=== PATIENT | female | born 1965 | race Caucasian/White ===

== ENCOUNTER 2024-04-16 10:59 | Outpatient (AMB) | payer OTHER, SELFPAY ==
--- NOTE | 2024-04-16 11:10 | A.OFFPC_ITS ---
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 Intake Note: New patient visit Allergies No Known Allergies Allergy (Verified 04/16/24 11:10) Medication List - Last Reconciled 04/16/24 by Alecia Christiansen PA-C apixaban (Eliquis) 5 mg PO BID aspirin 81 mg PO DAILY hydrochlorothiazide 25 mg PO DAILY methimazole mg PO metoprolol tartrate 50 mg PO BID rosuvastatin 5 mg PO DAILY Tobacco use date assessed: 04/16/24 Dental Screening Dental Screen Date: 04/16/24 Did you have a dental visit in the last 12 months?: Yes Did you have a dental problem in the last 6 months where you did not have access to dental care?: No Was dental information given to patient?: Patient has dentist 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 States that she has not seen a PCP in quite some time ever . She states that the only significant past medical history she can recall being diagnosed with was basal cell carcinoma. 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 She does not recall who she used to follow with. She states she was visiting family in [place] and states that she was not feeling well and went to the ED February 09 and dx with afib, htn, dyslipidemia and hyperthyroidism. She states that she went to the ER because she was just feeling tired, winded, sweaty and just unwell. She states that she canceled dinner plans when she arrived in [place] and her friend encouraged her to go to the hospital because that was just not like her. She states that while she was in the hospital they did do a lot of testing including imaging of the chest, an echo, EKG, labs. She states that she did not bring anything with her because her hospital records were about 360 pages. She can not tell me the name of the hospital but states that she has it listed at home. She obviously ran out of medication from January 18 now and states that the physician in [place] refilled it for her. -she states that while she was admitted they tried a cardioversion on her but she went back into AFib that same morning. She states that she can feel her heart switch in and out of AFib. It seems like it goes into AFib at night. She states that she is generally able to sleep through the night but does have a hard time sometimes she will snores so loudly that are all wake her up from sleeping. She does not think she has had any witnessed apneic events but also states sometimes she wakes up and feels like her mouth is very dry. -she states that prior to [place] she has been feeling weird for quite some time. She could not tell me how long but she thought that she maybe had a learning disability and states that she was having difficulty concentrating and feeling sweaty all of the time. She would intermittently get palpitations but did not think much about this. -she did not seek care because she did n ot want to feel like she was overreacting. -She has not had labs checked since the hospital. She states she had an ultrasound of her thyroid but cannot recall what they found and then part way through thought maybe it was just the ultrasound of the heart. CV: Blood pressure today in the office is 130/72. She is on metoprolol 50 mg b.i.d., hydrochlorothiazide 25 mg. States that her cholesterol is managed with Crestor 5 mg. She is on Eliquis. She was supposed to be on aspirin but is unable to tolerate this. States that it causes GI upset. She denies any current chest pain. She does feel at times the palpitations. No shortness a breath or leg swelling. No dizziness. Endo: She is on methimazole 5 mg and tries to take this everyday at the same time of day. 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 Postmenopausal. Mammo: Never had Colonoscopy: Never had Bone density: Never had Fam hx: Mother had breast ca at age 57. Maternal aunt had pancreatic ca. Patient is currently retired. [facility] Medical History (Updated 04/16/24 @ 11:48 by Alecia Christiansen PA-C) Hyperthyroidism A-fib Hx of skin cancer, basal cell Dyslipidemia HTN (hypertension), benign Social History (Updated 04/16/24 @ 11:12 by Francy Martinez CMA) Housing: House Patient Tobacco Use Status: Never used Tobacco e-Cigarette/Vaping Use: Never Used Second Hand Smoke Exposure: Yes Substance Use Type: Marijuana service: No Current occupational status: unemployed Cognitive needs: No Hearing needs: No Vision needs: Yes Questionnaire PHQ-9 Over the last 2 weeks, how often have you been bothered by any of the following problems? 1. Little interest or pleasure in doing things: not at all 2. Feeling down, depressed, or hopeless: not at all 3. Trouble falling or staying asleep, or sleeping too much: not at all 4. Feeling tired or having little energy: several days 5. Poor appetite or overeating: not at all 6. Feeling bad about yourself - or that you are a failure or have let yourself or your family down: not at all 7. Trouble concentrating on things, such as reading the newspaper or watching television: not at all 8. Moving or speaking so slowly that other people could have noticed. Or the opposite - being so fidgety or restless that you have been moving around a lot more than usual: not at all 9. Thoughts that you would be better off or of hurting yourself in some way: not at all Total score: 1 Depression Screening Interpretation: Negative Depression Screening Done: Yes 84910 - PHQ-9 Billing: Yes Source: Developed by Drs. Cosme Cullen, Josefa Verde, Ronnell Alaniz and colleagues, with an educational kian from [employer]. Thrive Questionnaire I am a: Patient What is your living situation today?: I have a steady place to live Within the past 12 months, did the food you bought not last and you didn't have the money to get more?: Never true Within the past 12 months, did you worry whether your food would run out before you got money to buy more?: Never true Do you have trouble paying for medicines?: No Do you have trouble getting transportation to medical appointments?: No Do you have trouble paying your heating and electricity bill?: No Do you have trouble taking care of your child, family member or friend?: No Do you have trouble with day-to-day activities such as bathing, preparing meals, shopping, managing finances, etc.?: No Are you currently unemployed and looking for a job?: No Are you interested in more education?: No Please select the resources that you would like help with: None Currently or been in a relationship where the following occur: no concerns reported THRIVE Score: 0 AUDIT C Alcohol Use Questionnaire (AUDIT-C) 1. How often do you have a drink containing alcohol?: Monthly or less 2. How many drinks containing alcohol do you have on a typical day when you are drinking?: 1 or 2 3. How often do you have six or more drinks on one occasion?: Never Total Score: 1 Score Reviewed/Action Taken: Yes BECKY-7 AMB Questionnaire BECKY-7 Feeling nervous, anxious, or on edge: 0 = Not at all Not being able to stop or control worryin = Not at all Worrying too much about different things: 0 = Not at all Trouble relaxin = Not at all Being so restless that it is hard to sit still: 0 = Not at all Becoming easily annoyed or irritable: 0 = Not at all Feeling afraid as if something awful might happen: 0 = Not at all Total BECKY-7 score (0-4 normal; 5-9 mild; 10-14 moderate; 15-21 severe): 0 Source: Developed by Drs. Cosme Cullen, Josefa Verde, Ronnell Alaniz and colleagues, with an educational kian from [employer]. BECKY-7 Assessment Billing BECKY-7 Assessment Tool: BECKY-7 Assessment 58771 Physical exam (Primary Care) Vital Signs: Last Vital Signs Temp 98.6 F 04/16/24 11:14 Pulse 57 04/16/24 11:14 Resp 14 04/16/24 11:14 BP 130/72 04/16/24 11:14 Pulse Ox 96 04/16/24 11:14 Oxygen Delivery Method Room Air 04/16/24 11:14 BMI result Body Mass Index 28.4 Tobacco/Smoking Status: Tobacco use Status Tobacco use date assessed 04/16/24 04/16/24 11:18 Patient Tobacco Use Status Never used Tobacco 04/16/24 11:18 e-Cigarette/Vaping Use Never Used 04/16/24 11:18 Depression Screening Interpretation: Negative Currently or been in a relationship where the following occur: no concerns reported Const Orientation/consciousness: patient oriented x3 HENMT Ears: hearing grossly normal bilaterally and TM's normal bilaterally Mouth: Normal oral and palatal mucosa present Throat: Yes posterior oropharynx normal and Yes uvula midline Eyes Other: Exophthalmos noted Pupils: Equal, round and reactive pupils present EOM: EOMs intact bilaterally Neck Thyroid: Thyroid normal Lymphatic: no lymphadenopathy noted Resp Auscultation: clear to auscultation bilaterally Cardio Rate: regular rate Rhythm: regular rhythm Heart sounds: S1 normal heart sound present and S2 normal heart sound present GI Inspection: Yes normal to inspection Palpation (GI): Soft to palpation and Other GI palpation findings present (nontender, no cva tenderness) Auscultation: normoactive bowel sounds Skin General skin exam: no rashes or lesions noted Neuro General: patient oriented x3, gait normal, no focal motor deficits and CN's II- XI intact bilaterally Cranial nerves: Yes Equal, round and reactive pupils present Psych Appearance: well kempt Speech and movement: Normal speech and movement present Affect: normal affect Attitude: cooperative Thought process: Normal thought process present Thought content: Normal thought content present Insight: Good insight present (Psych) Judgement: Good judgement present (Psych) Assessment and Plan Assessment & Plan (1) HTN (hypertension), benign: Code(s): I10 - Essential (primary) hypertension Plan: continue current plan bp wnl labs and referred to cards (2) Dyslipidemia: Code(s): E78.5 - Hyperlipidemia, unspecified Plan: continue crestor, lfts and lipids ordered (3) A-fib: Code(s): I48.91 - Unspecified atrial fibrillation Qualifiers: Atrial fibrillation type: paroxysmal Qualified Code(s): I48.0 - Paroxysmal atrial fibrillation Plan: continue eliquis and metoprolol. currently RRR labs ordered today referral to cardiology placed will get hospital records to review (4) Snoring: Code(s): R06.83 - Snoring Plan: sleep study ordered. 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 Orders: Orders Complete Blood Count Auto Diff Today E05.90 - Thyrotoxicosis, unspecified without thyrotoxic crisis or storm, E78.5 - Hyperlipidemia, unspecified, I10 - Essential (primary) hypertension, I48.91 - Unspecified atrial fibrillation Lipid Panel Today E05.90 - Thyrotoxicosis, unspecified without thyrotoxic crisis or storm, E78.5 - Hyperlipidemia, unspecified, I10 - Essential (primary) hypertension, I48.91 - Unspecified atrial fibrillation US thyroid Today E05.90 - Thyrotoxicosis, unspecified without thyrotoxic crisis or storm, E78.5 - Hyperlipidemia, unspecified, I10 - Essential (primary) hypertension, I48.91 - Unspecified atrial fibrillation MM screening mammo BI Today Z12.31 - Encounter for screening mammogram for malignant neoplasm of breast Comprehensive Met. Panel Today E05.90 - Thyrotoxicosis, unspecified without thyrotoxic crisis or storm, E78.5 - Hyperlipidemia, unspecified, I10 - Essential (primary) hypertension, I48.91 - Unspecified atrial fibrillation TSH reflex Free T4 Today E05.90 - Thyrotoxicosis, unspecified without thyrotoxic crisis or storm, E78.5 - Hyperlipidemia, unspecified, I10 - Essential (primary) hypertension, I48.91 - Unspecified atrial fibrillation XR DEXA axial skeleton Today Z78.0 - Asymptomatic menopausal state RT home sleep study Today I10 - Essential (primary) hypertension, I48.91 - Unspecified atrial fibrillation, R06.83 - Snoring Referrals Gastroenterology Referral Z12.11 - Encounter for screening for malignant neoplasm of colon Dermatology Referral Z85.828 - Personal history of other malignant neoplasm of skin Endocrinology Referral E05.90 - Thyrotoxicosis, unspecified without thyrotoxic crisis or storm Cardiology Referral I10 - Essential (primary) hypertension, I48.91 - Unspecified atrial fibrillation 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
[2024-04-16 11:14] VITALS: BP 130/72; PULSE 57; RESP 14; TEMP 37; O2SAT 96; BMI 28.4
== END 2024-04-16 12:04 | disposition home or self-care (01) ==
PROVIDERS: PCP Physician Assistant; Visit Provider Physician Assistant
DX: I10 Essential (primary) hypertension (principal); E78.5 Hyperlipidemia, unspecified; I48.0 Paroxysmal atrial fibrillation; R06.83 Snoring; E05.90 Thyrotoxicosis, unspecified without thyrotoxic crisis or storm; Z76.89 Persons encountering health services in other specified circumstances
CPT/HCPCS: 99204; G2211

== ENCOUNTER 2024-04-21 09:45 | Outpatient (REF) | payer OTHER, SELFPAY ==
[2024-04-21 11:13] LABS: MANUAL DIFF FLAG NO
[2024-04-21 11:45] LABS: Basophils Absolute Auto 0.1 X10*3/uL (0.0-0.2); Basophils Percent Auto 0.9 % (0-2); Eosinophils Absolute Auto 0.1 X10*3/uL (0.0-0.4); Eosinophils Percent Auto 2.1 % (0-4); Hematocrit 44.5 % (37.0-47.0); Hemoglobin 14.6 g/dl (12.0-16.0); Imm Gran Abs Auto 0.03 X10*3/uL (0.00-0.03); Imm Gran Pct Auto 0.5 % (0.0-0.4); Lymphocytes Percent Auto 35.7 % (20-40); Mean Corpuscular HGB Conc 32.8 g/dl (31.0-35.0); Mean Corpuscular Hemoglobin 29.4 pg (27.0-33.0); Mean Corpuscular Volume 89.5 fL (80.0-98.0); Monocytes Absolute Auto 0.4 X10*3/uL (0.1-1.2); Monocytes Percent Auto 6.2 % (2-11); Neutrophils Absolute Auto 3.1 x10*3/uL (2.0-8.3); Neutrophils Percent Auto 54.6 % (45-73); Platelet Count 238 X10*3/uL (160-400); Red Blood Count 4.97 X10*6/uL (4.20-5.50); Red Cell Distribution Width 15.5 % (11.0-16.0); White Blood Count 5.7 X10*3/uL (4.8-10.8)
[2024-04-21 12:12] LABS: Alanine Aminotransferase 208 U/L (0-31); Albumin Level 4.2 g/dL (3.5-5.0); Alkaline Phosphatase 147 U/L (39-117); Anion Gap 13 (12-20); Aspartate Amino Transferase 119 U/L (5-31); Bilirubin Total 1.1 mg/dL (0.0-1.0); Blood Urea Nitrogen 36 mg/dL (9-16); Calcium 9.2 mg/dL (8.4-10.2); Carbon Dioxide 28 mmol/L (22-29); Chloride 103 mmol/L (96-108); Cholesterol 216 mg/dL (<200); Estimated Glomerular Filt Rate 43; Glucose Random 94 mg/dL (60-115); HDL Cholesterol 70 mg/dL (>40); LDL Cholesterol Calculated 123 mg/dL (<100); Potassium 4.5 mmol/L (3.3-5.1); Sodium 139 mmol/L (135-145); Total Protein 6.9 g/dL (6.5-8.0); Triglycerides 117 mg/dL (<150)
[2024-04-21 12:32] LABS: TSH reflex Free T4 74.46 uIU/mL (0.32-4.0)
[2024-04-21 13:06] LABS: Free T4 (Free Thyroxine) < 0.42 ng/dL (0.71-1.85)
== END 2024-04-21 09:46 | disposition home or self-care (01) ==
LOC: HO.WFDLDS 09:45
PROVIDERS: Visit Provider Physician Assistant
DX: E05.90 Thyrotoxicosis, unspecified without thyrotoxic crisis or storm (principal); I48.91 Unspecified atrial fibrillation; E78.5 Hyperlipidemia, unspecified; I10 Essential (primary) hypertension
CPT/HCPCS: 36415; 80053; 80061; 84439; 84443; 85025

== ENCOUNTER 2024-05-01 08:20 | Outpatient (REF) | payer OTHER, SELFPAY ==
[2024-05-01 12:27] LABS: Alanine Aminotransferase 95 U/L (0-31); Albumin Level 4.3 g/dL (3.5-5.0); Alkaline Phosphatase 130 U/L (39-117); Aspartate Amino Transferase 31 U/L (5-31); Bilirubin Direct 0.5 mg/dL (0.0-0.5); Bilirubin Total 1.9 mg/dL (0.0-1.0); Total Protein 6.9 g/dL (6.5-8.0)
[2024-05-01 12:33] LABS: Hepatitis A Antibody IgG Nonreactive (Nonreactive); ~Hepatitis A Antibody IgG 0.59 S/CO (0.00-0.99)
[2024-05-01 12:34] LABS: ~HepC Num1 0.22 S/CO (0.00-0.79); ~Hepatitis B Surface Antibody NONREACTIVE (Nonreactive); ~Hepatitis C Antibody Nonreactive (Nonreactive)
[2024-05-01 12:44] LABS: Gamma Glutamyl Transpeptidase 401 U/L (7-33)
[2024-05-01 12:51] LABS: TSH reflex Free T4 39.36 uIU/mL (0.32-4.0)
[2024-05-01 15:13] LABS: Free T4 (Free Thyroxine) 0.66 ng/dL (0.71-1.85); Thyroid Stimulating Hormone 27.89 uIU/mL (0.32-4.0)
[2024-05-02 09:08] LABS: Triiodothyronine T3 Free 3.5 pg/mL (2.3-4.2)
[2024-05-04 16:45] LABS: Thyrotropin Receptor Antibody 21.11 IU/L (<=2.00)
== END 2024-05-01 08:21 | disposition home or self-care (01) ==
LOC: HO.WFDLDS 08:20
PROVIDERS: Internal Medicine Endocrinology, Diabetes & Metabolism; Visit Provider Physician Assistant
DX: E05.90 Thyrotoxicosis, unspecified without thyrotoxic crisis or storm (principal); R94.5 Abnormal results of liver function studies; R79.89 Other specified abnormal findings of blood chemistry
CPT/HCPCS: 36415; 80076; 82977; 83520; 84439; 84443; 84481; 86706; 86708; 86803; 99202

== ENCOUNTER 2024-05-01 08:57 | Outpatient (AMB) | payer OTHER, SELFPAY ==
--- NOTE | 2024-05-01 08:58 | A.OFFVIS_ITS ---
Vital Signs 05/01/24 08:59 Height 5 ft 2.6 in Weight 160 lb 7.944 oz BMI 28.8 BP 142/86 H Blood Pressure Location Lt brachial Position Sitting Pulse 50 Pulse Source Pulse Oximeter Intake Visit Reasons: Thyrotoxicosis-confirmed Intake Note: Patient present today for Thyrotoxicosis follow up visit. 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 Was initially diagnosed with hyperthyroidism in 01/2024 with presentation of hyperthyroidism/afib . Was placed on methimazole 15 mg QD . Recently stopped 1 wk ago . On metoprolol Currently denies any dysphagia or hoarseness of voice. Denies sensation of swelling in the neck or difficulty breathing while lying flat. Denies any tenderness in the neck. Denies any palpitations, tremors, weight loss, frequent bowel movements. Has ocular complaints,some blurred but no double vision. Denies hair loss, dry skin, heat or cold intolerance, weight gain, confusion. Denies any history of head or neck irradiation. Denies any family history of thyroid cancer. Had ultrasounds and scan in the past. Aunt was on thyroid medications Thyroid US: Labs: REPLACED BY [facility] Medical History (Updated 04/16/24 @ 11:48 by Alecia Christiansen PA-C) Hyperthyroidism A-fib Hx of skin cancer, basal cell Dyslipidemia HTN (hypertension), benign Social History Housing: House Patient Tobacco Use Status: Never used Tobacco e-Cigarette/Vaping Use: Never Used Second Hand Smoke Exposure: Yes Substance Use Type: Marijuana service: No Current occupational status: unemployed Cognitive needs: No Hearing needs: No Vision needs: Yes Physical Exam Vital Signs: Last Vital Signs Pulse 50 05/01/24 08:59 BP 142/86 H 05/01/24 08:59 BMI result Body Mass Index 28.8 HEENT reveals absence of lid lag , but presence of stare and proptosis R>Delilah eyebrow loss. Thyroid gland is enlarged in size weighs about 50 gms . No nodules or tenderness palpated. There is no cervical adenopathy palpated. Lungs CTA. Heart S1, S2 Reg R/R -M/R/G. Abdominal exam benign. Skin exam reveals absence of dryness or thyroid dermopathy or vitiligo. Nail exam reveals absence of thyroid acropachy or oncholysis. Neurologic exam reveals 2+ reflexes . Muscle Strength is 5/5 proximally. There are no tremors in upper extremities. Assessment & Plan Assessment & Plan (1) Hyperthyroidism: Code(s): - Thyrotoxicosis, unspecified without thyrotoxic crisis or storm Category: Medical Plan: This 58-year-old white female with a history of hyperthyroidism was being treated with methimazole and found to have elevated TSH as well as elevated liver enzymes Plan is to check thyroid function studies that were done today as well as liver enzymes. I have also ordered TRAB antibodies. Will decrease metoprolol to 50 mg and converted to metoprolol XL. May need re-initiation of methimazole but at lower dose. If thyroid function studies are normal at present, recheck thyroid function studies in about 4 weeks' time watching out for reoccurrence and re- initiation of methimazole. Discuss side effects of methimazole including but not limited to a granulocytosis and liver toxicity. Also discussed alternative options treatment of Graves disease including radioactive iodine and Graves disease but would avoid radioactive iodine this case because of presence of Graves ophthalmopathy. Also told patient to stop smoking the association with Graves ophthalmopathy. Lastly, we will refer to Graves thyroid eye disease specialist Dr. Gonzales. Orders: Orders Free T4 (Free Thyroxine) 4 Weeks E05.90 - Thyrotoxicosis, unspecified without thyrotoxic crisis or storm Thyroid Stimulating Hormone 4 Weeks E05.90 - Thyrotoxicosis, unspecified without thyrotoxic crisis or storm Thyrotropin Receptor Antibody 1 Day E05.90 - Thyrotoxicosis, unspecified without thyrotoxic crisis or storm Triiodothyronine T3 Free 4 Weeks E05.90 - Thyrotoxicosis, unspecified without t hyrotoxic crisis or storm Referrals Ophthalmology Referral E05.90 - Thyrotoxicosis, unspecified without thyrotoxic crisis or storm Medications: New metoprolol succinate ER 50 mg PO DAILY 30 tabs 4RF Coding Level of Care Code New Pt Level 4 (14580) Diagnoses Hyperthyroidism E0
[2024-05-01 08:59] VITALS: BP 142/86; PULSE 50; BMI 28.8
== END 2024-05-01 10:08 | disposition home or self-care (01) ==
PROVIDERS: PCP Physician Assistant; Visit Provider Internal Medicine Endocrinology, Diabetes & Metabolism
DX: E05.90 Thyrotoxicosis, unspecified without thyrotoxic crisis or storm (principal)
CPT/HCPCS: 99204

== ENCOUNTER 2024-05-01 11:08 | Outpatient (AMB) | payer OTHER, SELFPAY ==
--- NOTE | 2024-05-01 11:18 | MHC.PC.OV ---
Vital Signs 05/01/24 11:21 Height 5 ft 2.6 in Weight 161 lb BMI 28.9 BP 116/68 Blood Pressure Location Rt brachial Respiration 14 Pulse 51 Pulse Source Pulse Oximeter Temp 97.5 F Temp Source Oral Pulse Oximetry (%) 99 Oxygen Delivery Method Room Air Intake Visit Reasons: appointment, hosp follow up/lab review Intake Note: Emergency room follow up Colorectal Surgeon Required: No Allergies No Known Allergies Allergy (Verified 05/01/24 11:19) Tobacco use date assessed: 04/16/24 Dental Screening Dental Screen Date: 04/16/24 HPI appointment, hosp follow up/lab review HPI Details Patient is a 58-year-old female with a significant past medical history of AFib, hypertension, dyslipidemia and hypothyroidism presenting today for a follow up. Endo: She was recently seen to establish care and noted to have an elevated TSH. I had stopped her on her methimazole. She did follow with Dr. Myles today for her hyperthyroidism. Add on antibody tests were completed. She was also switched from metoprolol b.i.d. to ER once daily CV: Blood pressure today in the office is 116/68. She is on metoprolol 50 mg daily, hydrochlorothiazide 25 mg. I did DC her Crestor to recheck her LFTs. She was referred to Cardiology and is seeing Cardiology on 07/14. She has also not yet heard about a sleep study. GI: I do not have baseline LFTs. She did get her labs completed today but just before the appointment. Labs are not yet back. Ultrasound scheduled for 05/12. She was referred at our last visit as well for a colonoscopy and is booked on 07/10. Mammogram scheduled for 05/16 [facility] Medical History (Updated 05/01/24 @ 12:01 by Alecia Christiansen PA-C) Hyperthyroidism A-fib Hx of skin cancer, basal cell Dyslipidemia HTN (hypertension), benign Social History Housing: House Patient Tobacco Use Status: Never used Tobacco e-Cigarette/Vaping Use: Never Used Second Hand Smoke Exposure: Yes Substance Use Type: Marijuana service: No Current occupational status: unemployed Cognitive needs: No Hearing needs: No Vision needs: Yes Physical exam (Primary Care) Vital Signs: Last Vital Signs Temp 97.5 F 05/01/24 11:21 Pulse 51 05/01/24 11:21 Resp 14 05/01/24 11:21 BP 116/68 05/01/24 11:21 Pulse Ox 99 05/01/24 11:21 Oxygen Delivery Method Room Air 05/01/24 11:21 Tobacco/Smoking Status: Tobacco use Status Tobacco use date assessed 04/16/24 05/01/24 11:21 Patient Tobacco Use Status Never used Tobacco 05/01/24 11:21 e-Cigarette/Vaping Use Never Used 05/01/24 11:21 Const Orientation/consciousness: patient oriented x3 HENMT Ears: hearing grossly normal bilaterally Neck Thyroid: Thyroid normal Lymphatic: no lymphadenopathy noted Resp Auscultation: clear to auscultation bilaterally Cardio Rate: regular rate Rhythm: regular rhythm Heart sounds: S1 normal heart sound present and S2 normal heart sound present GI Inspection: Yes normal to inspection Palpation (GI): Soft to palpation and Other GI palpation findings present (nontender, no cva tenderness) Auscultation: normoactive bowel sounds Rectal Exam - Female: deferred Skin General skin exam: no rashes or lesions noted Neuro General: patient oriented x3, gait normal and no focal motor deficits Results Reviewed Results Reviewed: Laboratory Tests 04/21/24 05/01/24 09:48 08:22 GGT Pending AST 119 H Pending ALT 208 H Pending Alkaline Phosphatase 147 H Pending Total Protein Pending Albumin Pending Triglycerides 117 Cholesterol 216 H LDL Cholesterol, Calc 123 H HDL Cholesterol 70 TSH 74.46 H Free T4 < 0.42 L Assessment and Plan Assessment & Plan (1) HTN (hypertension), benign: Code(s): I10 - Essential (primary) hypertension Plan: Well-controlled. Continue current regimen (2) Dyslipidemia: Code(s): E78.5 - Hyperlipidemia, unspecified Plan: Reviewed cholesterol. Advised low-fat diet. LFTs pending. (3) Elevated LFTs: Code(s): R79.89 - Other specified abnormal findings of blood chemistry Plan: As above. Plan Three-month follow up. Sooner if needed. Patient understands and agrees Coding Level of Care Code Est Pt Level 4 (19550) Complex EM visit Add On G2211 Diagnoses HTN (hypertension), benign I10 Dyslipidemia E78.5 Elevated LFTs R79.89
[2024-05-01 11:21] VITALS: BP 116/68; PULSE 51; RESP 14; TEMP 36.4; O2SAT 99; BMI 28.9
== END 2024-05-01 11:56 | disposition home or self-care (01) ==
PROVIDERS: PCP Physician Assistant; Visit Provider Physician Assistant
DX: I10 Essential (primary) hypertension (principal); E78.5 Hyperlipidemia, unspecified; R79.89 Other specified abnormal findings of blood chemistry
CPT/HCPCS: 99214; G2211

== ENCOUNTER 2024-05-12 08:12 | Outpatient (REF) | payer OTHER, SELFPAY ==
--- NOTE | ~2024-05-12 | US_ITS ---
EXAMINATION: US ABDOMEN LIMITED CLINICAL INFORMATION: Abnormal results of liver function studies. COMPARISON: None available. TECHNIQUE: Real-time imaging of the right upper quadrant abdominal viscera. Limited visualization due to bowel gas. FINDINGS: PANCREAS: Limited visualization of pancreatic tail and head. Imaged portion of pancreatic body is unremarkable. LIVER: Hepatic parenchymal echogenicity is normal. Hepatic contour is normal. Limited visualization. GALLBLADDER: No gallstones. No gallbladder wall thickening. COMMON BILE DUCT: Normal in caliber measuring 0.3 cm in diameter. RIGHT KIDNEY: No hydronephrosis. No renal calculi. Limited visualization. The kidney measures 10.5 cm in maximum dimension. FREE FLUID: None. US/US abdomen limited IMPRESSION: Unremarkable exam.
--- NOTE | ~2024-05-12 | US_ITS ---
EXAMINATION: US THYROID CLINICAL INFORMATION: Thyrotoxicosis. Atrial fibrillation. Hyperthyroidism. COMPARISON: None available. TECHNIQUE: Linear transducer grayscale and color Doppler examination with attention to the region of the thyroid. FINDINGS: SIZE: Measurements of the thyroid lobes and nodules are given in sagittal, anteroposterior and transverse dimensions respectively. Right Thyroid Lobe: 4.8 x 1.3 x 1.8 cm, volume 5.7 mL. Parenchyma: The gland echotexture is homogeneous. Thyroid vascularity is increased. Left Thyroid Lobe: 3.7 x 1.5 x 1.6 cm, volume 4.5 mL. Parenchyma: The gland echotexture is homogeneous. Thyroid vascularity is increased. Isthmus: 0.4 cm in maximum AP dimension. Estimated total number of nodules greater than or equal to 1 cm: 0. Tax Associate nodules are described as follows: 1. Location: Left mid pole. Size: 0.6 x 0.4 x 0.9 cm, volume 0.12 mL. Nodule characteristics: Composition: Solid (2). Echogenicity: Hyperechoic (1). Shape: Not taller than wide (0). Margins: Smooth (0). Echogenic Foci: None (0). ACR TI-RADS total points: 3 ACR TI-RADS category: 3 NODES: No lymphadenopathy is seen in the tissue surrounding the thyroid gland. US/US thyroid IMPRESSION: A 0.6 cm left midpole TR3 thyroid nodule versus pseudonodule. Diffusely hypervascular thyroid gland. ACR TI-RADS RECOMMENDATION REFERENCE: Ultrasound-guided fine-needle aspiration, followup ultrasound, no further follow up. * TR1 (0 point) and TR2 (2 points): No FNA or follow up. * TR3 (3 points): FNA if more than or equal to 2.5 cm in maximum dimension, followup ultrasound in 1, 3 and 5 years if 1.5 to 2.4 cm in maximum dimension. * TR4 (4-6 points): FNA if more than or equal to 1.5 cm in maximum dimension, followup ultrasound in 1, 2, 3 and 5 years if 1 to 1.4 cm in maximum dimension. * TR5 (more than or equal to 7 points): FNA if more than or equal to 1 cm in maximum dimension, followup ultrasound every year for 5 years if 0.5 to 0.9 cm in maximum dimension. * TR3, TR4 or TR5 nodules that are below the size threshold for followup receive no follow up.
== END 2024-05-12 08:13 | disposition home or self-care (01) ==
LOC: HO.US 08:12
PROVIDERS: PCP Physician Assistant; Visit Provider Physician Assistant
DX: E05.90 Thyrotoxicosis, unspecified without thyrotoxic crisis or storm (principal); I48.91 Unspecified atrial fibrillation; E78.5 Hyperlipidemia, unspecified; R94.5 Abnormal results of liver function studies
CPT/HCPCS: 76536; 76705

== ENCOUNTER 2024-05-16 10:43 | Outpatient (REF) | payer OTHER, SELFPAY ==
--- NOTE | ~2024-05-16 | MM_ITS ---
EXAMINATION: BONE DENSITOMETRY CLINICAL INDICATION: Asymptomatic menopausal state. COMPARISON: This is the patient's baseline examination. TECHNIQUE: Using a 1bib DXA System (software version: 13.1) manufactured by [email or web address], dual-energy x-ray absorptiometry was performed of the lumbar spine and left hip. The images are of good technical quality. Summary results are attached. FINDINGS: LEFT FEMUR, NECK: BMD 0.829 g/cm2, Z-score -0.5, T-score -1.5, osteopenia. LEFT FEMUR, TOTAL: BMD 0.920 g/cm2, Z-score 0.0, T-score -0.7, normal. AP SPINE L1-L4: BMD 1.186 g/cm2, Z-score 0.9, T-score 0.1, normal. IDENTIFIED RISK FACTORS: Menopause, current smoker. HISTORY OF FRACTURE: None listed. MEDICATIONS: None listed. MM/XR DEXA axial skeleton IMPRESSION: 1. DIAGNOSIS: Osteopenia based on the lowest T-score value of -1.5 in the femoral neck applying World Health Organization criteria. 2. 10-YEAR FRACTURE RISK PREDICTION, FRAX: Major osteoporotic fracture (clinical spine, forearm, hip or shoulder) 7.8%. Hip fracture 1.1%. 3. Treatment Recommendations: NOF guidelines recommend consideration for treatment in postmenopausal women and men age 50 and older presenting with the following: -A hip or vertebral (clinical or morphometric) fracture. -T-score less than or equal to -2.5 at the femoral neck or spine after appropriate evaluation to exclude secondary causes. -Low bone mass at the hip or spine and a 10-year fracture probability by FRAX of greater than or equal to 3% for hip fracture or greater than or equal to 20% for major osteoporotic fracture based on the [place] adapted WHO algorithm. 4. Other Recommendations: All treatment decisions require clinical judgment and consideration of individual patient factors, including patient preferences, comorbidities, previous drug use, risk factors not captured in the FRAX model (e.g. frailty, falls, vitamin D deficiency, increased bone turnover, interval significant decline in bone density) and possible under or overestimation of fracture risk by FRAX. Additional medical evaluation for secondary cause of low bone mineral density may be appropriate. FUTURE SCAN RECOMMENDATION: People with diagnosed cases of osteoporosis or at high risk for fracture should have regular bone mineral density tests. For patients eligible for Medicare, routine testing is allowed once every 2 years. The testing frequency can be increased to one year for patients who have rapidly progressing disease, those who are receiving or discontinuing medical therapy to restore bone mass, or have additional risk factors.
--- NOTE | ~2024-05-16 | MM_ITS ---
EXAMINATION: MM SCREENING DIGITAL BREAST TOMOSYNTHESIS, BILATERAL CLINICAL INFORMATION: Screening. Asymptomatic. COMPARISON: Mammography: This is a baseline mammogram. TECHNIQUE: Digital breast tomosynthesis is performed in both the craniocaudal and mediolateral oblique views along with computer-aided detection (CAD). Synthesized 2D images are generated from the tomosynthesis. FINDINGS: There are scattered areas of fibroglandular density (ACR BI-RADS breast composition Category b). There are no significant masses, abnormal calcifications, or other abnormalities. MM/MM tomosynthesis screening BI IMPRESSION: No mammographic evidence of malignancy. ASSESSMENT: BI-RADS BI-RADS 1 - Negative RECOMMENDATION: Routine annual mammography screening. 1 year F/U This examination should not preclude the clinical evaluation of a suspicious palpable abnormality. This patient's information was entered into a reminder system with a target due date for their next mammogram.
== END 2024-05-16 10:44 | disposition home or self-care (01) ==
LOC: HO.MAMMO 10:43
PROVIDERS: PCP Physician Assistant; Visit Provider Physician Assistant
DX: Z12.31 Encounter for screening mammogram for malignant neoplasm of breast (principal); Z13.820 Encounter for screening for osteoporosis; Z78.0 Asymptomatic menopausal state
CPT/HCPCS: 77063; 77067; 77080

== ENCOUNTER → 2024-05-16 10:45 | Outpatient (BNV) | payer OTHER, SELFPAY | PROVIDERS: PCP Physician Assistant; Visit Provider Radiology Diagnostic Radiology | DX: Z12.31 Encounter for screening mammogram for malignant neoplasm of breast (principal) | CPT/HCPCS: 77063; 77067 ==

== ENCOUNTER 2024-05-16 15:41 | Outpatient (REF) | payer OTHER, SELFPAY ==
[2024-05-16 18:15] LABS: Alanine Aminotransferase 38 U/L (0-31); Albumin Level 4.3 g/dL (3.5-5.0); Alkaline Phosphatase 102 U/L (39-117); Aspartate Amino Transferase 23 U/L (5-31); Bilirubin Direct 0.5 mg/dL (0.0-0.5); Bilirubin Total 1.8 mg/dL (0.0-1.0)
[2024-05-16 18:32] LABS: Free T4 (Free Thyroxine) 1.47 ng/dL (0.71-1.85); Thyroid Stimulating Hormone 0.12 uIU/mL (0.32-4.0)
== END 2024-05-16 15:42 | disposition home or self-care (01) ==
LOC: HO.WFDLDS 15:41
PROVIDERS: Internal Medicine Endocrinology, Diabetes & Metabolism; Visit Provider Physician Assistant
DX: R79.89 Other specified abnormal findings of blood chemistry (principal); E05.90 Thyrotoxicosis, unspecified without thyrotoxic crisis or storm
CPT/HCPCS: 36415; 80076; 84439; 84443

== ENCOUNTER 2024-05-31 08:02 | Outpatient (REF) | payer OTHER, SELFPAY ==
[2024-05-31 08:16] LABS: MANUAL DIFF FLAG NO
[2024-05-31 09:11] LABS: Basophils Percent Auto 0.7 % (0-2); Eosinophils Absolute Auto 0.1 X10*3/uL (0.0-0.4); Eosinophils Percent Auto 2.1 % (0-4); Hematocrit 44.2 % (37.0-47.0); Hemoglobin 14.7 g/dl (12.0-16.0); Imm Gran Abs Auto 0.01 X10*3/uL (0.00-0.03); Imm Gran Pct Auto 0.2 % (0.0-0.4); Lymphocytes Absolute Auto 2.4 X10*3/uL (1.2-4.9); Lymphocytes Percent Auto 42.1 % (20-40); Mean Corpuscular HGB Conc 33.3 g/dl (31.0-35.0); Mean Corpuscular Hemoglobin 30.2 pg (27.0-33.0); Mean Corpuscular Volume 90.8 fL (80.0-98.0); Mean Platelet Volume 11.2 fL (9.4-12.3); Monocytes Absolute Auto 0.6 X10*3/uL (0.1-1.2); Monocytes Percent Auto 9.6 % (2-11); Neutrophils Absolute Auto 2.6 x10*3/uL (2.0-8.3); Neutrophils Percent Auto 45.3 % (45-73); Platelet Count 278 X10*3/uL (160-400); Red Blood Count 4.87 X10*6/uL (4.20-5.50); Red Cell Distribution Width 14.1 % (11.0-16.0); White Blood Count 5.7 X10*3/uL (4.8-10.8)
[2024-05-31 10:29] LABS: Alanine Aminotransferase 158 U/L (0-31); Albumin Level 4.2 g/dL (3.5-5.0); Alkaline Phosphatase 142 U/L (39-117); Aspartate Amino Transferase 34 U/L (5-31); Bilirubin Direct 0.3 mg/dL (0.0-0.5); Bilirubin Total 1.3 mg/dL (0.0-1.0); Total Protein 6.9 g/dL (6.5-8.0)
[2024-05-31 10:32] LABS: Free T4 (Free Thyroxine) 1.27 ng/dL (0.71-1.85); Thyroid Stimulating Hormone 0.03 uIU/mL (0.32-4.0)
== END 2024-05-31 08:03 | disposition home or self-care (01) ==
LOC: HO.LAB 08:02
PROVIDERS: PCP Physician Assistant; Visit Provider Internal Medicine Endocrinology, Diabetes & Metabolism
DX: E05.90 Thyrotoxicosis, unspecified without thyrotoxic crisis or storm (principal)
CPT/HCPCS: 36415; 80076; 84439; 84443; 84481; 85025

== ENCOUNTER 2024-06-02 11:06 | Outpatient (AMB) | payer OTHER, SELFPAY ==
--- NOTE | 2024-06-02 11:09 | A.OFFVIS_ITS ---
Vital Signs 06/02/24 11:10 Height 5 ft 2.6 in Weight 154 lb 12.232 oz BMI 27.8 BP 130/82 Blood Pressure Location Lt brachial Position Sitting Pulse 102 H Pulse Source Pulse Oximeter Intake Visit Reasons: F/U hyperthyroidism-pt req/LVM Intake Note: Patient present today for Hyperthyroidism follow up visit. Brim Flexer Required: No Accompanied by: Self / Same As Patient Allergies No Known Allergies Allergy (Verified 06/02/24 11:13) Medication List - Last Reconciled 06/02/24 by Cosme Myles MD apixaban (Eliquis) 5 mg PO BID hydrochlorothiazide 25 mg PO DAILY methimazole 10 mg PO DAILY metoprolol succinate ER 25 mg PO DAILY HPI Comments Details: 59 YO f with PMHx a fib who is seen in consultation for hyperthyroidism at the request of PCP. Was initially diagnosed with hyperthyroidism in 01/2024 with presentation of hyperthyroidism/afib . Was placed on methimazole 15 mg QD . Recently stopped 1 wk ago . On metoprolol Currently denies any dysphagia or hoarseness of voice. Denies sensation of swelling in the neck or difficulty breathing while lying flat. Denies any tenderness in the neck. Denies any palpitations, tremors, weight loss, frequent bowel movements. Has ocular complaints,some blurred but no double vision. Denies hair loss, dry skin, heat or cold intolerance, weight gain, confusion. Denies any history of head or neck irradiation. Denies any family history of thyroid cancer. Had ultrasounds and scan in the past. Aunt was on thyroid medications Thyroid US: Labs: Currently on methimazole 10 mg q.d. [facility] Medical History (Updated 05/01/24 @ 12:01 by Alecia Christiansen PA-C) Hyperthyroidism A-fib Hx of skin cancer, basal cell Dyslipidemia HTN (hypertension), benign Social History Housing: House Patient Tobacco Use Status: Never used Tobacco e-Cigarette/Vaping Use: Never Used Second Hand Smoke Exposure: Yes Substance Use Type: Marijuana service: No Current occupational status: unemployed Cognitive needs: No Hearing needs: No Vision needs: Yes Physical Exam Vital Signs: Last Vital Signs Pulse 102 H 06/02/24 11:10 BP 130/82 06/02/24 11:10 BMI result Body Mass Index 27.8 HEENT reveals absence of lid lag , but presence of stare and proptosis R>Delilah eyebrow loss. Thyroid gland is enlarged in size weighs about 50 gms . No nodules or tenderness palpated. There is no cervical adenopathy palpated. Lungs CTA. Heart S1, S2 Reg R/R -M/R/G. Abdominal exam benign. Skin exam reveals absence of dryness or thyroid dermopathy or vitiligo. Nail exam reveals absence of thyroid acropachy or oncholysis. Neurologic exam reveals 2+ reflexes . Muscle Strength is 5/5 proximally. There are no tremors in upper extremities. Const Other: There is proptosis of the righteye greater than left. Thyroid gland is larger size weighs about 50 g . There are no thyroid nodules palpated Assessment & Plan Assessment & Plan (1) Hyperthyroidism: Code(s): - Thyrotoxicosis, unspecified without thyrotoxic crisis or storm Category: Medical Plan: Is a 59-year-old white female with a history of Graves disease and hyperthyroidism very sensitive to anti-thyroid medication. She is currently on 10 mg of methimazole with slightly elevated T3 level. Liver enzymes appear to be moderately elevated which could be due to the methimazole Plan is to increase the methimazole gently to to 12.5 mg. Will recheck thyroid function studies, liver panel and CBC in 3-4 weeks. Will also talk to the p atient about getting definitive therapy with surgery considering difficulty of regulating the hyperthyroidism, presence of Graves eye disease and comorbidities of rapid AFib. Will refer to Dr. Culp for surgical consideration Orders: Orders Free T4 (Free Thyroxine) 10 Days E0. - Thyrotoxicosis, unspecified without thyrotoxic crisis or storm Thyroid Stimulating Hormone 10 Days E0.90 - Thyrotoxicosis, unspecified without thyrotoxic crisis or storm Triiodothyronine T3 Free 10 Days E05.90 - Thyrotoxicosis, unspecified without thyrotoxic crisis or storm Liver Panel 10 Days E05.90 - Thyrotoxicosis, unspecified without thyrotoxic crisis or storm Complete Blood Count Auto Diff 10 Days E05.90 - Thyrotoxicosis, unspecified without thyrotoxic crisis or storm Referrals General Surgery Referral E0. - Thyrotoxicosis, unspecified without thyrotoxic crisis or storm Medications: New methimazole take 10 mg and 2.5 mg =12.5 mg daily 5 mg PO DAILY 30 tabs 4RF Coding Level of Care Code Est Pt Level 3 (62083) Diagnoses Hyperthyroidism E05.90
[2024-06-02 11:10] VITALS: BP 130/82; PULSE 102; BMI 27.8
== END 2024-06-02 11:52 | disposition home or self-care (01) ==
PROVIDERS: PCP Physician Assistant; Visit Provider Internal Medicine Endocrinology, Diabetes & Metabolism
DX: E05.90 Thyrotoxicosis, unspecified without thyrotoxic crisis or storm (principal)
CPT/HCPCS: 99213

== ENCOUNTER → 2024-06-02 11:06 | Outpatient (BNVA) | payer OTHER, SELFPAY | PROVIDERS: PCP Physician Assistant; Visit Provider Internal Medicine Endocrinology, Diabetes & Metabolism | DX: E05.90 Thyrotoxicosis, unspecified without thyrotoxic crisis or storm (principal) | CPT/HCPCS: 99212 ==

== ENCOUNTER 2024-06-04 10:18 | Outpatient (AMB) | payer OTHER, SELFPAY ==
--- NOTE | 2024-06-04 10:25 | MHC.PC.OV ---
Vital Signs 06/04/24 10:33 Height 5 ft 2.6 in Weight 155 lb 4 oz BMI 27.9 BP 128/88 Blood Pressure Location Lt brachial Position Sitting Pulse 62 Pulse Source Pulse Oximeter Pulse Oximetry (%) 98 Oxygen Delivery Method Room Air Intake Visit Reasons: pt request wants to discuss visit with Dr Myles. Intake Note: Follow up to discuss lab results. Requesting referral to veterinary epidemiologist. Dr Myles wants her to get her thyroid out because he is worried about her having a heart attack. Under Baster Required: No Allergies No Known Allergies Allergy (Verified 06/04/24 10:30) Medication List - Last Reconciled 06/04/24 by Alecia Christiansen PA-C apixaban (Eliquis) 5 mg PO BID methimazole 10 mg PO DAILY methimazole 5 mg PO DAILY Tobacco use date assessed: 04/16/24 Dental Screening Dental Screen Date: 04/16/24 HPI pt request wants to discuss visit with Dr Myles. HPI Details Pt is a 59 y/o female who presents today for hospital follow up. She was hospitalized at [facility] from 05/25 through 05/26. She presented to the ER with palpitations and a racing heart rate. She was found to be tachycardic in RVR with a heart rate up to 145. She was also recently started on levothyroxine after being found to be hypothyroid. She was discontinued on this as her TSH was suppressed. She was then started on methimazole again after her hospitalization. She states that she is taking 12.5 mg of the methimazole. When she was discharged from the hospital she was also increased the metoprolol to 50 mg. She has been feeling well and has not been drinking alcohol. She states that she went out with her friends and thinks that that is what caused this. She thinks it was a combination of medication changes, dehydration and the alcohol. GI: last lfts were elevated. ? related to thyroid. u/s was neg. She states that she has been drinking more etoh than she should. She states she drinks beer regularly and prior to hospitalization was taking shots of beltran. CV: seeing cardiology 07/14/24. When she was hospitalized she was increased on the metoprolol to 50 mg. Endo: following with Dr. Myles (has follow up on 07/09) and the plan is to go for a thyroidectomy with Dr. Culp. She states she really does not want to remove her thyroid. She is currently on 12.5 mg of methimazole daily. Mammo: pending reading Bone density: utd, osteopenia [facility] Medical History (Updated 06/04/24 @ 10:52 by Alecia Christiansen PA-C) Gilbert syndrome Hyperthyroidism A-fib Hx of skin cancer, basal cell Dyslipidemia HTN (hypertension), benign Social History Housing: House Patient Tobacco Use Status: Never used Tobacco e-Cigarette/Vaping Use: Never Used Second Hand Smoke Exposure: Yes Substance Use Type: Marijuana service: No Current occupational status: unemployed Cognitive needs: No Hearing needs: No Vision needs: Yes Physical exam (Primary Care) Vital Signs: Last Vital Signs Pulse 62 06/04/24 10:33 BP 128/88 06/04/24 10:33 Pulse Ox 98 06/04/24 10:33 Oxygen Delivery Method Room Air 06/04/24 10:33 BMI result Body Mass Index 27.9 Tobacco/Smoking Status: Tobacco use Status Tobacco use date assessed 04/16/24 06/04/24 10:27 Patient Tobacco Use Status Never used Tobacco 06/04/24 10:27 e-Cigarette/Vaping Use Never Used 06/04/24 10:27 Const Orientation/consciousness: patient oriented x3 HENMT Ears: hearing grossly normal bilaterally Neck Thyroid: Thyroid normal Lymphatic: no lymphadenopathy noted Resp Auscultation: clear to auscultation bilaterally Cardio Rate: regular rate Rhythm: regular rhythm Heart sounds: S1 normal heart sound present and S2 normal heart sound present GI Inspection: Yes normal to inspection Palpation (GI): Soft to palpation and Other GI palpation findings present (nontender, no cva tenderness) Auscultation: normoactive bowel sounds Rectal Exam - Female: deferred Skin General skin exam: no rashes or lesions noted Neuro General: patient oriented x3, gait normal and no focal motor deficits Results Reviewed Results Reviewed: Laboratory Tests 05/16/24 05/31/24 15:50 08:15 WBC 5.7 RBC 4.87 Hgb 14.7 Hct 44.2 Plt Count 278 Total Bilirubin 1.8 H 1.3 H Direct Bilirubin 0.5 0.3 AST 23 34 H ALT 38 H 158 H Alkaline Phosphatase 102 142 H Total Protein 6.9 Albumin 4.2 TSH 0.03 L Free T4 1.27 Free T3 5.0 H EXAMINATION: US ABDOMEN LIMITED CLINICAL INFORMATION: Abnormal results of liver function studies. COMPARISON: None available. TECHNIQUE: Real-time imaging of the right upper quadrant abdominal viscera. Limited visualization due to bowel gas. FINDINGS: PANCREAS: Limited visualization of pancreatic tail and head. Imaged portion of pancreatic body is unremarkable. LIVER: Hepatic parenchymal echogenicity is normal. Hepatic contour is normal. Limited visualization. GALLBLADDER: No gallstones. No gallbladder wall thickening. COMMON BILE DUCT: Normal in caliber measuring 0.3 cm in diameter. RIGHT KIDNEY: No hydronephrosis. No renal calculi. Limited visualization. The kidney measures 10.5 cm in maximum dimension. FREE FLUID: None. US/US abdomen limited IMPRESSION: Unremarkable exam. Assessment and Plan Assessment & Plan (1) Hospital discharge follow-up: Code(s): Z09 - Encounter for follow-up examination after completed treatment for conditions other than malignant neoplasm Plan: medications reconciled, labs and imaging reviewed. (2) A-fib: Code(s): I48.91 - Unspecified atrial fibrillation Qualifiers: Atrial fibrillation type: paroxysmal Qualified Code(s): I48.0 - Paroxysmal atrial fibrillation Plan: has follow up with cardiology on 07/14. bp today wnl. (3) Hyperthyroidism: Code(s): E05.90 - Thyrotoxicosis, unspecified without thyrotoxic crisis or storm Plan: plans to recheck labs next month in 4 weeks (4) Elevated LFTs: Code(s): R79.89 - Other specified abnormal findings of blood chemistry Plan: will recheck lfts at that time. she is going to stop drinking during this time. referral to gi has been placed. Medications: New metoprolol succinate ER 50 mg PO DAILY 90 tabs 3RF Coding Level of Care Code TCM Mod MDM <= 14 Days Diagnoses Hospital discharge follow-up Z09 Paroxysmal atrial fibrillation I48.0 Atrial fibrillation type: paroxysmal Hyperthyroidism E05.90 Elevated LFTs R79.89
[2024-06-04 10:33] VITALS: BP 128/88; PULSE 62; O2SAT 98; BMI 27.9
== END 2024-06-04 11:01 | disposition home or self-care (01) ==
PROVIDERS: PCP Physician Assistant; Visit Provider Physician Assistant
DX: I48.0 Paroxysmal atrial fibrillation (principal); Z09 Encounter for follow-up examination after completed treatment for conditions other than malignant neoplasm; E05.90 Thyrotoxicosis, unspecified without thyrotoxic crisis or storm; R79.89 Other specified abnormal findings of blood chemistry
CPT/HCPCS: 99214

== ENCOUNTER 2024-06-09 10:54 | Outpatient (REF) | payer OTHER, SELFPAY ==
[2024-06-09 14:00] LABS: MANUAL DIFF FLAG NO
[2024-06-09 14:03] LABS: Basophils Percent Auto 0.6 % (0-2); Eosinophils Absolute Auto 0.1 X10*3/uL (0.0-0.4); Eosinophils Percent Auto 1.4 % (0-4); Hematocrit 42.4 % (37.0-47.0); Hemoglobin 14.3 g/dl (12.0-16.0); Imm Gran Abs Auto 0.01 X10*3/uL (0.00-0.03); Imm Gran Pct Auto 0.2 % (0.0-0.4); Lymphocytes Percent Auto 31.7 % (20-40); Mean Corpuscular HGB Conc 33.7 g/dl (31.0-35.0); Mean Corpuscular Hemoglobin 30.9 pg (27.0-33.0); Mean Corpuscular Volume 91.6 fL (80.0-98.0); Mean Platelet Volume 11.1 fL (9.4-12.3); Monocytes Absolute Auto 0.4 X10*3/uL (0.1-1.2); Monocytes Percent Auto 6.3 % (2-11); Neutrophils Absolute Auto 3.8 x10*3/uL (2.0-8.3); Neutrophils Percent Auto 59.8 % (45-73); Platelet Count 267 X10*3/uL (160-400); Red Blood Count 4.63 X10*6/uL (4.20-5.50); Red Cell Distribution Width 13.2 % (11.0-16.0); White Blood Count 6.4 X10*3/uL (4.8-10.8)
[2024-06-09 14:29] LABS: Alanine Aminotransferase 41 U/L (0-31); Albumin Level 4.3 g/dL (3.5-5.0); Alkaline Phosphatase 114 U/L (39-117); Aspartate Amino Transferase 22 U/L (5-31); Bilirubin Direct 0.2 mg/dL (0.0-0.5)
[2024-06-09 14:44] LABS: Free T4 (Free Thyroxine) 0.92 ng/dL (0.71-1.85); Thyroid Stimulating Hormone 0.07 uIU/mL (0.32-4.0)
[2024-06-10 09:58] LABS: Triiodothyronine T3 Free 3.5 pg/mL (2.3-4.2)
== END 2024-06-09 10:55 | disposition home or self-care (01) ==
LOC: HO.WFDLDS 10:54
PROVIDERS: Visit Provider Internal Medicine Endocrinology, Diabetes & Metabolism
DX: E05.90 Thyrotoxicosis, unspecified without thyrotoxic crisis or storm (principal)
CPT/HCPCS: 36415; 80076; 84439; 84443; 84481; 85025

== ENCOUNTER 2024-06-11 11:07 | Outpatient (AMB) | payer OTHER, SELFPAY ==
--- NOTE | 2024-06-11 11:15 | MHC.PC.OV ---
Vital Signs 06/11/24 11:20 Height 5 ft 2.6 in Weight 156 lb 2 oz BMI 28.0 BP 136/76 Blood Pressure Location Lt brachial Position Sitting Pulse 62 Pulse Source Pulse Oximeter Pulse Oximetry (%) 97 Oxygen Delivery Method Room Air Intake Visit Reasons: Review medications Intake Note: Follow up lump on arm. Dr Myles told her stop Methimazole, pt started this morning at 5mg because she was worried about AFIB. Mortar Man Required: No Allergies No Known Allergies Allergy (Verified 06/11/24 11:17) Medication List - Last Reconciled 06/11/24 by Alecia Christiansen PA-C apixaban (Eliquis) 5 mg PO BID methimazole 5 mg PO DAILY metoprolol succinate ER 50 mg PO DAILY triamcinolone acetonide 0.025% 1 appl topical BID 14 days Tobacco use date assessed: 04/16/24 Dental Screening Dental Screen Date: 04/16/24 HPI Review medications HPI Details Patient is a 59-year-old female with a significant past medical history of hyperthyroidism, AFib, hypertension, hyperlipidemia and elevated LFTs presenting today for a follow up regarding a rash and lump. She states that last week on Sunday she realize that she had a lump on her right shoulder/upper arm. She states since then it has gone down in size but is still present. She wonders if it is a medication reaction. She says that she has full range of motion of her shoulder and it is not tender if she pushes on it. She is worried because it feels like it is just right over the joint. She then wondered if it was a spider bite but she did not have any overlying erythema or drainage. The lump is not itchy or bothersome. She only noticed it because she was rubbing her shoulders. She states that she came in here but the walk-in was closed and she did not want to wait at an urgent care. She states that she then went to [place] on 06/08 because she developed a rash on her face and she was also worried about the shoulder bump. She worried that this could have been a spider bite reaction. She denies seeing any insects. She states at the ER they told her to try Benadryl which she never did. She wonders if it was a reaction to the methimazole. Sunday morning she woke up with rash on her face. She does not have any pic of when it first flared it was red and since then it had become more mild. She states it is not itchy but feels rough and a little stingy. No new products, no new meds, no contacts with similar sx. She has not tried anything besides reducing her methimazole. She has an appointment with dermatology in June. She states that she thinks her thyroid levels are related to AFib because when she adjusted her dose of the methimazole she felt like she had a small bout of AFib. She could feel palpitations. Her last numbers do look a little better. She states that right now she is only on 5 mg of the methimazole but wonders if it is an under dosed. The current recommendation is to have her thyroid removed but she is very against this. She states she wants more time with the medications. She thinks that since our last visit she stopped drinking light beers. She thought those had minimal/no alcohol and was surprised to find out that it has just as much alcohol. She also is often dehydrated because she does not like juice or tea but also does not drink water. She states that she was drinking light beers but since our last visit has been drinking nonalcoholic beers. She has also tried to drink more water. She has made some dietary changes. She has not heard about her sleep study yet [facility] Medical History (Updated 06/11/24 @ 13:11 by Alecia Christiansen PA-C) Gilbert syndrome Hyperthyroidism A-fib Hx of skin cancer, basal cell Dyslipidemia HTN (hypertension), benign Social History Housing: House Patient Tobacco Use Status: Never used Tobacco e-Cigarette/Vaping Use: Never Used Second Hand Smoke Exposure: Yes Substance Use Type: Marijuana service: No Current occupational status: unemployed Cognitive needs: No Hearing needs: No Vision needs: Yes Physical exam (Primary Care) Vital Signs: Last Vital Signs Pulse 62 06/11/24 11:20 BP 136/76 06/11/24 11:20 Pulse Ox 97 06/11/24 11:20 Oxygen Delivery Method Room Air 06/11/24 11:20 BMI result Body Mass Index 28.0 Tobacco/Smoking Status: Tobacco use Status Tobacco use date assessed 04/16/24 06/11/24 11:16 Patient Tobacco Use Status Never used Tobacco 06/11/24 11:16 e-Cigarette/Vaping Use Never Used 06/11/24 11:16 Const Orientation/consciousness: patient oriented x3 HENMT Ears: hearing grossly normal bilaterally Neck Lymphatic: no lymphadenopathy noted Resp Auscultation: clear to auscultation bilaterally Cardio Rate: regular rate Rhythm: regular rhythm Heart sounds: S1 normal heart sound present and S2 normal heart sound present GI Inspection: Yes normal to inspection Palpation (GI): Soft to palpation and Other GI palpation findings present (nontender, no cva tenderness) Auscultation: normoactive bowel sounds Skin Other: Patches of mildly erythematous, raised, flaky skin noted on the face. Neuro General: patient oriented x3, gait normal and no focal motor deficits Extrem Other: There is a soft, slightly mobile, marble-sized lump noted the anterior right shoulder area. Nontender. Overlying skin WNL. The shoulder is nontender. Full range of motion. DTRs intact Assessment and Plan Assessment & Plan (1) A-fib: Code(s): I48.91 - Unspecified atrial fibrillation Qualifiers: Atrial fibrillation type: paroxysmal Qualified Code(s): I48.0 - Paroxysmal atrial fibrillation Plan: Referral to EP. She is not currently in AFib but going into intermittent bouts of this. She is anticoagulated and rate controlled. (2) Lump of skin of right upper extremity: Code(s): R22.31 - Localized swelling, mass and lump, right upper limb Plan: Ultrasound x-ray ordered. We will follow up pending test results. Did discuss that the lump feels consistent with a lipoma. (3) Atopic dermatitis: Code(s): L20.9 - Atopic dermatitis, unspecified Plan: Advised to try triamcinolone cream. I have encouraged her to keep her skin moisturized. Follow up with Dermatology. Advised her to take pictures of her face. Sooner if needed. Patient understands and agrees with the plan. Orders: Orders XR shoulder RT min 2V Today R22.31 - Localized swelling, mass and lump, right upper limb US extremity nonvascular Today R22.31 - Localized swelling, mass and lump, right upper limb Referrals Cardiac Electrophysiology Referral I48.0 - Paroxysmal atrial fibrillation Medications: New triamcinolone acetonide 0.025% 1 appl topical BID 14 days 80 grams 2RF Coding Level of Care Code Est Pt Level 4 (80411) Complex EM visit Add On G2211 Diagnoses Paroxysmal atrial fibrillation I48.0 Atrial fibrillation type: paroxysmal Lump of skin of right upper extremity R22.31 Atopic dermatitis L20.9
[2024-06-11 11:20] VITALS: BP 136/76; PULSE 62; O2SAT 97; BMI 28.0
== END 2024-06-11 12:02 | disposition home or self-care (01) ==
PROVIDERS: PCP Physician Assistant; Visit Provider Physician Assistant
DX: I48.0 Paroxysmal atrial fibrillation (principal); R22.31 Localized swelling, mass and lump, right upper limb; L20.9 Atopic dermatitis, unspecified
CPT/HCPCS: 99214; G2211

== ENCOUNTER 2024-06-20 07:47 | Outpatient (REF) | payer OTHER, SELFPAY ==
[2024-06-20 11:11] LABS: MANUAL DIFF FLAG NO
[2024-06-20 11:16] LABS: Basophils Percent Auto 0.6 % (0-2); Eosinophils Absolute Auto 0.1 X10*3/uL (0.0-0.4); Eosinophils Percent Auto 2.3 % (0-4); Hematocrit 44.6 % (37.0-47.0); Hemoglobin 14.5 g/dl (12.0-16.0); Imm Gran Abs Auto 0.01 X10*3/uL (0.00-0.03); Imm Gran Pct Auto 0.2 % (0.0-0.4); Lymphocytes Absolute Auto 2.5 X10*3/uL (1.2-4.9); Lymphocytes Percent Auto 47.3 % (20-40); Mean Corpuscular HGB Conc 32.5 g/dl (31.0-35.0); Mean Corpuscular Hemoglobin 30.4 pg (27.0-33.0); Mean Corpuscular Volume 93.5 fL (80.0-98.0); Mean Platelet Volume 10.8 fL (9.4-12.3); Monocytes Absolute Auto 0.3 X10*3/uL (0.1-1.2); Monocytes Percent Auto 6.2 % (2-11); Neutrophils Absolute Auto 2.3 x10*3/uL (2.0-8.3); Neutrophils Percent Auto 43.4 % (45-73); Platelet Count 252 X10*3/uL (160-400); Red Blood Count 4.77 X10*6/uL (4.20-5.50); Red Cell Distribution Width 13.2 % (11.0-16.0); White Blood Count 5.2 X10*3/uL (4.8-10.8)
[2024-06-20 12:08] LABS: Alanine Aminotransferase 47 U/L (0-31); Albumin Level 3.9 g/dL (3.5-5.0); Alkaline Phosphatase 110 U/L (39-117); Aspartate Amino Transferase 31 U/L (5-31); Bilirubin Direct 0.1 mg/dL (0.0-0.5); Bilirubin Total 0.4 mg/dL (0.0-1.0); Total Protein 6.6 g/dL (6.5-8.0)
[2024-06-20 12:34] LABS: Free T4 (Free Thyroxine) 0.63 ng/dL (0.71-1.85); Thyroid Stimulating Hormone 2.35 uIU/mL (0.32-4.0)
[2024-06-21 07:38] LABS: Triiodothyronine T3 Free 2.2 pg/mL (2.3-4.2)
== END 2024-06-20 07:48 | disposition home or self-care (01) ==
LOC: HO.WFDLDS 07:47
PROVIDERS: Visit Provider Internal Medicine Endocrinology, Diabetes & Metabolism
DX: E05.90 Thyrotoxicosis, unspecified without thyrotoxic crisis or storm (principal)
CPT/HCPCS: 36415; 80076; 84439; 84443; 84481; 85025

== ENCOUNTER 2024-06-25 13:55 | Outpatient (AMB) | payer OTHER, SELFPAY ==
--- NOTE | 2024-06-25 14:20 | A.OFFPC_ITS ---
Vital Signs 06/25/24 14:23 Height 5 ft 2.6 in Weight 161 lb 8 oz BMI 29.0 BP 118/78 Blood Pressure Location Lt brachial Position Sitting Respiration 14 Pulse 60 Pulse Source Pulse Oximeter Pulse Oximetry (%) 98 Oxygen Delivery Method Room Air Intake Visit Reasons: Blood pressure and pulse check Intake Note: Blood pressure and pulse check. Issue with metoprolol. Dr Myles had her on 25 mg initially. Hospital bumped it up to 50. Last visit with Ana she wanted to lower medication. pt is running out because she is taking 1.5 pills daily. She will need quantity changed and 90 day for insurance. Retail Leader Required: No Allergies No Known Allergies Allergy (Verified 06/25/24 14:22) Medication List - Last Reconciled 06/25/24 by Alecia Christiansen PA-C apixaban (Eliquis) 5 mg PO BID methimazole 2.5 mg (1/2 x 5 mg) PO DAILY metoprolol succinate ER 25 mg PO DAILY triamcinolone acetonide 0.025% 1 appl topical BID 14 days Tobacco use date assessed: 04/16/24 Dental Screening Dental Screen Date: 04/16/24 HPI Blood pressure and pulse check HPI Details Patient is a 59-year-old female who presents today for a follow up CV: bp today is 118/78. She states that there has been a lot of confusion regarding her metoprolol dosing but she is taking 1-1/2 tablets of the metoprolol succinate ER tablets. She states that this is working well for her and she has been monitoring her blood pressure many times a day at home and states that it has been normal. Her pulse has stayed in the 60s. No exacerbations of the AFib. Does have an appointment with Cardiology. Derm: seeing Dr. Mcnair in June Endo: She is still unsure about following up for surgery of her thyroid. She states that she wants to continue with her new healthier lifestyle and try to continue with her current regimen of the methimazole. She states that she knows that her numbers have fluctuated but she believes that this is related to secondary causes. [facility] Medical History (Updated 06/25/24 @ 14:53 by Alecia Christiansen PA-C) Gilbert syndrome Hyperthyroidism A-fib Hx of skin cancer, basal cell Dyslipidemia HTN (hypertension), benign Social History Housing: House Patient Tobacco Use Status: Never used Tobacco e-Cigarette/Vaping Use: Never Used Second Hand Smoke Exposure: Yes Substance Use Type: Marijuana service: No Current occupational status: unemployed Cognitive needs: No Hearing needs: No Vision needs: Yes Physical exam (Primary Care) Vital Signs: Last Vital Signs Pulse 60 06/25/24 14:23 Resp 14 06/25/24 14:23 BP 118/78 06/25/24 14:23 Pulse Ox 98 06/25/24 14:23 Oxygen Delivery Method Room Air 06/25/24 14:23 BMI result Body Mass Index 29.0 Tobacco/Smoking Status: Tobacco use Status Tobacco use date assessed 04/16/24 06/25/24 14:26 Patient Tobacco Use Status Never used Tobacco 06/25/24 14:26 e-Cigarette/Vaping Use Never Used 06/25/24 14:26 Const Orientation/consciousness: patient oriented x3 HENMT Ears: hearing grossly normal bilaterally Neck Lymphatic: no lymphadenopathy noted Resp Auscultation: clear to auscultation bilaterally Cardio Rate: regular rate Rhythm: regular rhythm Heart sounds: S1 normal heart sound present and S2 normal heart sound present GI Inspection: Yes normal to inspection Palpation (GI): Soft to palpation and Other GI palpation findings present (nontender, no cva tenderness) Auscultation: normoactive bowel sounds Rectal Exam - Female: deferred Skin Other: Slightly raised erythematous patches on the face with flaking Neuro General: patient oriented x3, gait normal and no focal motor deficits Results Reviewed Results Reviewed: US/US abdomen limited IMPRESSION: Unremarkable exam. Laboratory Tests 05/31/24 06/20/24 08:15 07:49 WBC 5.2 RBC 4.77 Hgb 14.5 Hct 44.6 Plt Count 252 Total Bilirubin 0.4 Direct Bilirubin 0.1 AST 31 ALT 158 H 47 H Alkaline Phosphatase 142 H 110 TSH 2.35 Free T4 0.63 L Free T3 2.2 L Assessment and Plan Assessment & Plan (1) Atopic dermatitis: Code(s): L20.9 - Atopic dermatitis, unspecified Qualifiers: Atopic dermatitis type: unspecified Qualified Code(s): L20.9 - Atopic dermatitis, unspecified Plan: Seeing Dr. Lenzy this month. discussed she could try otc hydrocortisone cream BID for 1 week. (2) Hyperthyroidism: Code(s): E05.90 - Thyrotoxicosis, unspecified without thyrotoxic crisis or storm Plan: Continue follow up with endocrinology. I have I have encouraged her to strongly take Dr. Myles's advice in meet with Dr. Culp. (3) A-fib: Code(s): I48.91 - Unspecified atrial fibrillation Qualifiers: Atrial fibrillation type: paroxysmal Qualified Code(s): I48.0 - Paroxysmal atrial fibrillation Plan: On anticoagulation and metoprolol. (4) HTN (hypertension), benign: Code(s): I10 - Essential (primary) hypertension Plan: WNL. Continue current regimen Medications: Changed From metoprolol succinate ER 25 mg PO DAILY 90 tabs 0RF To metoprolol succinate ER 37.5 mg (1.5 x 25 mg) PO DAILY 90 tabs 3RF Coding Level of Care Code Est Pt Level 4 (45133) Diagnoses Atopic dermatitis, unspecified type L20.9 Atopic dermatitis type: unspecified Hyperthyroidism E05.90 Paroxysmal atrial fibrillation I48.0 Atrial fibrillation type: paroxysmal HTN (hypertension), benign I10
[2024-06-25 14:23] VITALS: BP 118/78; PULSE 60; RESP 14; O2SAT 98; BMI 29.0
== END 2024-06-25 14:57 | disposition home or self-care (01) ==
PROVIDERS: PCP Physician Assistant; Visit Provider Physician Assistant
DX: L20.9 Atopic dermatitis, unspecified (principal); E05.90 Thyrotoxicosis, unspecified without thyrotoxic crisis or storm; I48.0 Paroxysmal atrial fibrillation; I10 Essential (primary) hypertension
CPT/HCPCS: 99214

== ENCOUNTER 2024-06-26 12:56 | Outpatient (REF) | payer OTHER, SELFPAY ==
--- NOTE | ~2024-06-26 | US_ITS ---
EXAMINATION: ULTRASOUND EXTREMITY NONVASCULAR CLINICAL INFORMATION: Localized swelling, mass, lump right upper arm COMPARISON: None TECHNIQUE: Grayscale and color Doppler imaging was obtained of the superficial tissues in the region of the right shoulder (indicated region of palpable abnormality). FINDINGS: No focal superficial mass is identified. No well-organized fluid collection. No abnormal color Doppler flow. US/US extremity nonvascular IMPRESSION: Unremarkable sonographic imaging in the region of the patient's palpable abnormality. Further evaluation can be obtained with cross-sectional imaging as deemed clinically appropriate. Electronically signed by: Isaac Caceres MD 07/17/2024 07:30 AM EDT
== END 2024-06-26 12:57 | disposition home or self-care (01) ==
LOC: HO.US 12:56
PROVIDERS: Visit Provider Physician Assistant
DX: R22.31 Localized swelling, mass and lump, right upper limb (principal)
CPT/HCPCS: 76882

== ENCOUNTER 2024-07-09 10:55 | Outpatient (REF) | payer OTHER, SELFPAY ==
[2024-07-09 12:23] LABS: MANUAL DIFF FLAG NO
[2024-07-09 12:57] LABS: Basophils Percent Auto 0.7 % (0-2); Eosinophils Absolute Auto 0.1 X10*3/uL (0.0-0.4); Eosinophils Percent Auto 1.4 % (0-4); Hematocrit 42.4 % (37.0-47.0); Hemoglobin 14.6 g/dl (12.0-16.0); Imm Gran Abs Auto 0.02 X10*3/uL (0.00-0.03); Imm Gran Pct Auto 0.3 % (0.0-0.4); Lymphocytes Absolute Auto 2.2 X10*3/uL (1.2-4.9); Lymphocytes Percent Auto 36.5 % (20-40); Mean Corpuscular HGB Conc 34.4 g/dl (31.0-35.0); Mean Platelet Volume 10.4 fL (9.4-12.3); Monocytes Absolute Auto 0.3 X10*3/uL (0.1-1.2); Monocytes Percent Auto 5.8 % (2-11); Neutrophils Absolute Auto 3.3 x10*3/uL (2.0-8.3); Neutrophils Percent Auto 55.3 % (45-73); Platelet Count 240 X10*3/uL (160-400); Red Blood Count 4.71 X10*6/uL (4.20-5.50); Red Cell Distribution Width 12.6 % (11.0-16.0); White Blood Count 5.9 X10*3/uL (4.8-10.8)
[2024-07-09 14:04] LABS: Alanine Aminotransferase 44 U/L (0-31); Albumin Level 4.3 g/dL (3.5-5.0); Alkaline Phosphatase 95 U/L (39-117); Aspartate Amino Transferase 30 U/L (5-31); Bilirubin Direct 0.2 mg/dL (0.0-0.5); Bilirubin Total 0.6 mg/dL (0.0-1.0); Total Protein 6.9 g/dL (6.5-8.0)
[2024-07-09 14:07] LABS: Free T4 (Free Thyroxine) 0.59 ng/dL (0.71-1.85); Thyroid Stimulating Hormone 12.72 uIU/mL (0.32-4.0)
[2024-07-10 07:58] LABS: Triiodothyronine T3 Free 2.7 pg/mL (2.3-4.2)
[2024-07-13 19:39] LABS: Thyrotropin Receptor Antibody 13.26 IU/L (<=2.00)
== END 2024-07-09 10:56 | disposition home or self-care (01) ==
LOC: HO.LAB 10:55
PROVIDERS: PCP Physician Assistant; Visit Provider Internal Medicine Endocrinology, Diabetes & Metabolism
DX: E05.90 Thyrotoxicosis, unspecified without thyrotoxic crisis or storm (principal); E05.00 Thyrotoxicosis with diffuse goiter without thyrotoxic crisis or storm
CPT/HCPCS: 36415; 80076; 83520; 84439; 84443; 84481; 85025; 99212

== ENCOUNTER 2024-07-09 10:55 | Outpatient (AMB) | payer OTHER, SELFPAY ==
--- NOTE | 2024-07-09 10:59 | A.OFFVIS_ITS ---
Vital Signs 07/09/24 11:02 Height 5 ft 2.6 in Weight 166 lb 7.184 oz BMI 29.9 BP 112/72 Blood Pressure Location Rt brachial Position Sitting Pulse 81 Pulse Source Pulse Oximeter Intake Visit Reasons: f/u hyperthyroidism Intake Note: Patient present today for Hyperthyroidism follow up. Pattern Chart Writer Required: No Accompanied by: Self / Same As Patient Allergies No Known Allergies Allergy (Verified 07/09/24 11:02) Medication List - Last Reconciled 07/09/24 by Cosme Myles MD apixaban (Eliquis) 5 mg PO BID methimazole 2.5 mg (1/2 x 5 mg) PO DAILY metoprolol succinate ER 37.5 mg (1.5 x 25 mg) PO DAILY triamcinolone acetonide 0.025% 1 appl topical BID 14 days HPI Comments Details: 59 YO f with PMHx a fib who is seen in consultation for hyperthyroidism at the request of PCP. Was initially diagnosed with hyperthyroidism in 01/2024 with presentation of hyperthyroidism/afib . Was placed on methimazole 15 mg QD . Recently stopped 1 wk ago . On metoprolol Currently denies any dysphagia or hoarseness of voice. Denies sensation of swelling in the neck or difficulty breathing while lying flat. Denies any tenderness in the neck. Denies any palpitations, tremors, weight loss, frequent bowel movements. Has ocular complaints,some blurred but no double vision. Denies hair loss, dry skin, heat or cold intolerance, weight gain, confusion. Denies any history of head or neck irradiation. Denies any family history of thyroid cancer. Had ultrasounds and scan in the past. Aunt was on thyroid medications Thyroid US: Labs: Currently on methimazole 5 mg q.d. Had decreased free T4 and Free T3 [facility] Medical History (Updated 06/25/24 @ 14:53 by Alecia Christiansen PA-C) Gilbert syndrome Hyperthyroidism A-fib Hx of skin cancer, basal cell Dyslipidemia HTN (hypertension), benign Surgical History No pertinent past surgical history Family History Mother Breast cancer Social History Housing: House Patient Tobacco Use Status: Never used Tobacco e-Cigarette/Vaping Use: Never Used Second Hand Smoke Exposure: Yes Substance Use Type: Marijuana service: No Current occupational status: unemployed Cognitive needs: No Hearing needs: No Vision needs: Yes Physical Exam Vital Signs: Last Vital Signs Pulse 81 07/09/24 11:02 BP 112/72 07/09/24 11:02 BMI result Body Mass Index 29.9 Const Other: There is proptosis of the righteye greater than left. Thyroid gland is larger size weighs about 50 g . There are no thyroid nodules palpated Assessment & Plan Assessment & Plan (1) Hyperthyroidism: Code(s): E05.90 - Thyrotoxicosis, unspecified without thyrotoxic crisis or storm Category: Medical Plan: Is a 59-year-old white female with a history of Graves disease and hyperthyroidism very sensitive to anti-thyroid medication. She is currently on 5 mg mg of methimazole . Liver enzymes have normalized. The patient appears to be clinically euthyroid Plan is to recheck thyroid function studies, liver enzymes and CBC as well as TRAB antibodies and adjust methimazole accordingly. I did make a referral to a Josue expert in [place] Dr. Marybeth Quach at [facility] Ear Orders: Orders Thyrotropin Receptor Antibody Today E05.90 - Thyrotoxicosis, unspecified without thyrotoxic crisis or storm Referrals Ophthalmology Referral E05.00 - Thyrotoxicosis with diffuse goiter without thyrotoxic crisis or storm Coding Level of Care Code Est Pt Level 3 (59107) Diagnoses Hyperthyroidism E05.90
[2024-07-09 11:02] VITALS: BP 112/72; PULSE 81; BMI 29.9
== END 2024-07-09 11:53 | disposition home or self-care (01) ==
PROVIDERS: PCP Physician Assistant; Visit Provider Internal Medicine Endocrinology, Diabetes & Metabolism
DX: E05.90 Thyrotoxicosis, unspecified without thyrotoxic crisis or storm (principal)
CPT/HCPCS: 99213

== ENCOUNTER 2024-07-14 09:30 | Outpatient (AMB) | payer OTHER, SELFPAY ==
[2024-07-14 09:50] VITALS: BP 138/60; PULSE 69; BMI 29.8
--- NOTE | 2024-07-14 09:50 | MHC.OFFVIS ---
Vital Signs 07/14/24 09:50 Height 5 ft 2 in Weight 163 lb 2.273 oz BMI 29.8 BP 138/60 Blood Pressure Location Lt brachial Position Sitting Pulse 69 Pulse Source Monitor Intake Visit Reasons: ORDER DISPATCHER/Christiansen/Unspecified atrial fibrillation/HTN Allergies No Known Allergies Allergy (Verified 07/09/24 11:02) Medication List - Last Reconciled 07/14/24 by Helder Osman MD apixaban (Eliquis) 5 mg PO BID methimazole 2.5 mg (1/2 x 5 mg) PO DAILY metoprolol succinate ER 37.5 mg (1.5 x 25 mg) PO DAILY HPI Comments Details: Lelo is here for consultation regarding atrial fibrillation. Apparently, she was in [place] around . At that time, she did not feel good and admitted to a local hospital. Subsequently, diagnosed with atrial fibrillation. It seems that she also got diagnosed with hyperthyroidism around the same time. Any case, currently she is on medications including beta-blockers as well as Eliquis. Even at the time of diagnosis, she did not really feel any palpitations but just did not feel good overall. Otherwise, no other symptoms like angina or shortness of breath. No known coronary disease or myocardial infarction or cardiomyopathy. With regard to hyperthyroidism, on methimazole. [facility] Medical History (Updated 07/14/24 @ 10:11 by Helder Osman MD) Gilbert syndrome Hyperthyroidism A-fib Hx of skin cancer, basal cell Dyslipidemia HTN (hypertension), benign Surgical History No pertinent past surgical history Family History Mother Breast cancer Social History (Updated 07/14/24 @ 10:00 by Palak Erickson) Housing: House Alcohol intake: current Patient Tobacco Use Status: Never used Tobacco e-Cigarette/Vaping Use: Never Used Second Hand Smoke Exposure: Yes Substance Use Type: Marijuana service: No Current occupational status: unemployed Cognitive needs: No Hearing needs: No Vision needs: Yes Review of Systems Const Denies weakness ENT Denies dizziness Card Denies chest pain, Denies chest pain with activity, Denies syncope, Denies rapid heart rate, Denies pedal edema, Denies edema, Denies leg edema, Denies lightheadedness, Denies palpitations, Denies dyspnea, Denies dyspnea on exertion and Denies orthopnea Resp Denies cough, Denies dyspnea and Denies dyspnea on exertion GI Denies hematochezia and Denies change in stool character Musc Denies abnormal gait, Denies muscle cramps, Denies muscle weakness, Denies numbness, Denies radiating pain into limb and Denies tingling Neuro Denies abnormal gait, Denies dizziness, Denies syncope, Denies numbness, Denies tingling and Denies weakness Endo Denies palpitations Physical Exam Vital Signs: Last Vital Signs Pulse 69 07/14/24 09:50 BP 138/60 07/14/24 09:50 BMI result Body Mass Index 29.8 Const General: comfortable and no acute distress Orientation/consciousness: patient oriented x3 HEENT Other: Unremarkable Head: Yes normal to inspection Neck Neck: Yes normal visual inspection Chest Chest palpation & inspection: normal inspection of the chest Resp Auscultation: clear to auscultation bilaterally Cardio Palpation: normal PMI Heart sounds: S1 normal heart sound present, S2 normal heart sound present, no gallops, no murmurs and no rubs GI Palpation (GI): Soft to palpation Back/Spine/Pelvis Other: unremarkable Skin General skin exam: no rashes or lesions noted Neuro General: patient oriented x3 Extrem General: Yes normal to inspection Psych Mental Status: mental status grossly normal Office Procedures EKG Details: EKG with underlying sinus rhythm at 69/Min; no significant ST-T changes and otherwise unremarkable[place] [id number], Complete Assessment & Plan Assessment & Plan (1) PAF (paroxysmal atrial fibrillation): Code(s): I48.0 - Paroxysmal atrial fibrillation Category: Medical (2) Hyperthyroidism: Code(s): E05.90 - Thyrotoxicosis, unspecified without thyrotoxic crisis or storm Category: Medical Plan Atrial fibrillation in the setting of hyperthyroidism. By EKG, she is normal sinus rhythm but not clear if she is having any paroxysmal episodes or not. Will need to get records from [place] where she was initially diagnosed. Will get an echocardiogram for cardiac function and a 14 day Holter monitor. Follow-up after the above. Orders: Orders CA echo transthoracic complete Today I48.0 - Paroxysmal atrial fibrillation ECG 14 day holter monitor Today I48.0 - Paroxysmal atrial fibrillation, R00.2 - Palpitations Coding Level of Care Code New Pt Level 4 (53121) Diagnoses PAF (paroxysmal atrial fibrillation) I48.0 Hyperthyroidism E05.90 CPT Codes EKG - CPT: 12204-[id number], Complete ([id number])
== END 2024-07-14 10:18 | disposition home or self-care (01) ==
PROVIDERS: PCP Physician Assistant; Visit Provider Internal Medicine
DX: I48.0 Paroxysmal atrial fibrillation (principal); E05.90 Thyrotoxicosis, unspecified without thyrotoxic crisis or storm
CPT/HCPCS: 93010; 99204

== ENCOUNTER → 2024-07-14 09:30 | Outpatient (BNVA) | payer OTHER, SELFPAY | PROVIDERS: PCP Physician Assistant; Visit Provider Internal Medicine | DX: I48.0 Paroxysmal atrial fibrillation (principal); E05.90 Thyrotoxicosis, unspecified without thyrotoxic crisis or storm | CPT/HCPCS: 93005; 99202 ==

== ENCOUNTER 2024-07-17 10:03 | Outpatient (AMB) | payer OTHER, SELFPAY ==
--- NOTE | 2024-07-17 10:06 | MHC.PC.OV ---
Vital Signs 07/17/24 10:12 Height 5 ft 2 in Weight 166 lb BMI 30.4 BP 152/84 H Blood Pressure Location Lt brachial Position Sitting Respiration 16 Pulse 72 Pulse Source Pulse Oximeter Temp 97.9 F Temp Source Oral Pulse Oximetry (%) 96 Oxygen Delivery Method Room Air Intake Visit Reasons: follow up Intake Note: patient here for follow up on HTN Chemical Laboratory Technician Required: No Is last menstrual period known: No Post menopausal: No Patient : No Allergies No Known Allergies Allergy (Verified 07/17/24 10:11) Medication List - Last Reconciled 07/17/24 by Alecia Christiansen PA-C apixaban (Eliquis) 5 mg PO BID methimazole 2.5 mg (1/2 x 5 mg) PO DAILY metoprolol succinate ER 37.5 mg (1.5 x 25 mg) PO DAILY Tobacco use date assessed: 07/17/24 Dental Screening Dental Screen Date: 04/16/24 HPI follow up HPI Details Patient is a 59-year-old female who presents today for a follow up. -last time complained of the lump on right shoulder that she had an ultrasound for which was negative. she states that since our appointment it seems like it has shrunk. She denies any pain. States it feels like a fatty lump. She did not get the xray and states she will. CV: Blood pressure today in the office is 138/60. She is currently on metoprolol 37.5 mg daily. Tolerating this well. Recently saw Cardiology and is scheduled for a 14 day Holter monitor and echo. She is on Eliquis. -She has stopped drinking and wants to reduce her cholesterol with diet. Endo: On methimazole for her hyperthyroidism. Following closely with Dr. Myles. Derm: Followed with Dr. Mcnair. Her face rash has resolved. Colonoscopy: booked for screening 09/02/24 Mammogram:utd, wnl 2023 Bone density: utd, 2023- osteopenia Pap: scheduled for 08/06/24 [facility] Medical History (Updated 07/14/24 @ 10:11 by Helder Osman MD) Gilbert syndrome Hyperthyroidism A-fib Hx of skin cancer, basal cell Dyslipidemia HTN (hypertension), benign Surgical History No pertinent past surgical history Family History Mother Breast cancer Social History (Updated 07/14/24 @ 10:00 by Palak Erickson) Housing: House Alcohol intake: current Patient Tobacco Use Status: Never used Tobacco e-Cigarette/Vaping Use: Never Used Second Hand Smoke Exposure: Yes Substance Use Type: Marijuana service: No Current occupational status: unemployed Cognitive needs: No Hearing needs: No Vision needs: Yes Physical exam (Primary Care) Tobacco/Smoking Status: Tobacco use Status Tobacco use date assessed 04/16/24 07/17/24 10:08 Patient Tobacco Use Status Never used Tobacco 07/17/24 10:08 e-Cigarette/Vaping Use Never Used 07/17/24 10:08 Const Orientation/consciousness: patient oriented x3 HENMT Ears: hearing grossly normal bilaterally Neck Thyroid: Thyroid normal Lymphatic: no lymphadenopathy noted Resp Auscultation: clear to auscultation bilaterally Cardio Rate: regular rate Rhythm: regular rhythm Heart sounds: S1 normal heart sound present and S2 normal heart sound present Skin General skin exam: no rashes or lesions noted Neuro General: patient oriented x3, gait normal and no focal motor deficits Extrem Other: There is a marble-sized, mobile, subcutaneous mass noted on the anterior right shoulder. It is nontender. Full range of motion. General: Yes capillary refill normal Results Reviewed Results Reviewed: Laboratory Tests 06/20/24 07/09/24 07:49 12:19 WBC 5.9 RBC 4.71 Hgb 14.6 Hct 42.4 Plt Count 240 Total Bilirubin 0.6 Direct Bilirubin 0.2 AST 30 ALT 44 H Alkaline Phosphatase 95 Total Protein 6.9 Albumin 4.3 TSH 2.35 12.72 H Free T4 0.63 L 0.59 L Free T3 2.2 L 2.7 ASSESSMENT: BI-RADS BI-RADS 1 - Negative RECOMMENDATION: Routine annual mammography screening. 1 year F/U MM/XR DEXA axial skeleton IMPRESSION: 1. DIAGNOSIS: Osteopenia based on the lowest T-score value of -1.5 in the femoral neck applying World Health Organization criteria. Assessment and Plan Assessment & Plan (1) PAF (paroxysmal atrial fibrillation): Code(s): I48.0 - Paroxysmal atrial fibrillation Plan: She is set up for her 14 day Holter monitor and echo. Has follow up with Cardiology. Rate controlled and on anticoagulation (2) Hyperthyroidism: Code(s): E05.90 - Thyrotoxicosis, unspecified without thyrotoxic crisis or storm Plan: Follows with endocrinology (3) HTN (hypertension), benign: Code(s): I10 - Essential (primary) hypertension Plan: Continue current regimen. We will monitor. Blood pressure slightly elevated above goal initially today but then repeat blood pressure was WNL. (4) Dyslipidemia: Code(s): E78.5 - Hyperlipidemia, unspecified Plan: Has quit drinking, has stopped eating fried chicken and as many processed foods. She states that she really does not want to go on a medication for this. We will recheck in a few months. (5) Lump of skin of right upper extremity: Code(s): R22.31 - Localized swelling, mass and lump, right upper limb Plan: She will complete the x-ray. Ultrasound was normal. She does not want to see the general surgeon. She feels as if the lump is getting smaller. She does not want any additional imaging and states that at our follow up she will let me know if she changes her mind. She will contact me sooner if anything worsens. Orders: Orders Lipid Panel 3 Months E78.5 - Hyperlipidemia, unspecified Coding Level of Care Code Est Pt Level 4 (06957) Complex EM visit Add On G2211 Diagnoses PAF (paroxysmal atrial fibrillation) I48.0 Hyperthyroidism E05.90 HTN (hypertension), benign I10 Dyslipidemia E78.5 Lump of skin of right upper extremity R22.31
[2024-07-17 10:12] VITALS: BP 152/84; PULSE 72; RESP 16; TEMP 36.6; O2SAT 96; BMI 30.4
== END 2024-07-17 10:34 | disposition home or self-care (01) ==
PROVIDERS: PCP Physician Assistant; Visit Provider Physician Assistant
DX: I48.0 Paroxysmal atrial fibrillation (principal); E05.90 Thyrotoxicosis, unspecified without thyrotoxic crisis or storm; I10 Essential (primary) hypertension; E78.5 Hyperlipidemia, unspecified; R22.31 Localized swelling, mass and lump, right upper limb
CPT/HCPCS: 99214; G2211

== ENCOUNTER 2024-07-17 13:11 | Outpatient (REF) | payer OTHER, SELFPAY ==
--- NOTE | ~2024-07-17 | XR_ITS ---
EXAMINATION: XR SHOULDER, RIGHT CLINICAL INFORMATION: Localized swelling maximum right upper limb COMPARISON: None available. TECHNIQUE: AP external rotation, Grashey, scapular Y, and axillary views of the right shoulder. FINDINGS: Mild degenerative changes of the glenohumeral and acromioclavicular joints. No abnormal soft tissue calcifications appreciated adjacent to the humeral head. XR/XR shoulder RT min 2V IMPRESSION: Mild degenerative changes. Electronically signed by: Christina Park MD 08/06/2024 10:25 AM EDT
== END 2024-07-17 13:12 | disposition home or self-care (01) ==
LOC: HO.XRAY 13:11
PROVIDERS: PCP Physician Assistant; Visit Provider Physician Assistant
DX: R22.31 Localized swelling, mass and lump, right upper limb (principal)
CPT/HCPCS: 73030

== ENCOUNTER → 2024-07-30 08:13 | Outpatient (REF) | payer OTHER, SELFPAY ==
--- NOTE | 2024-07-30 08:16 | HM_ITS ---
* Total monitoring time 14 days. * Underlying rhythm is sinus with an average rate of 62/Min. About 42% of the time, rate < 60/Min. * Rare supraventricular ectopy with very brief runs. * Rare ventricular ectopy. * No significant pauses or high-grade AV blocks. * No patient markers or diary events. MTDD
== END ==
LOC: HO.CARD 08:13
PROVIDERS: PCP Physician Assistant; Visit Provider Internal Medicine
DX: R00.2 Palpitations (principal); I48.0 Paroxysmal atrial fibrillation
CPT/HCPCS: 93246

== ENCOUNTER → 2024-07-30 08:16 | Outpatient (BNV) | payer OTHER, SELFPAY | PROVIDERS: PCP Physician Assistant; Visit Provider Internal Medicine | DX: I47.10 Supraventricular tachycardia, unspecified (principal) | CPT/HCPCS: 93248 ==

== ENCOUNTER 2024-08-07 08:33 | Outpatient (AMB) | payer OTHER, SELFPAY ==
[2024-08-07 08:43] VITALS: BP 126/86; PULSE 97; O2SAT 96; BMI 30.3
--- NOTE | 2024-08-07 08:43 | MHC.PC.OV ---
Vital Signs 08/07/24 08:43 Height 5 ft 2 in Weight 165 lb 8 oz BMI 30.3 BP 126/86 Blood Pressure Location Lt brachial Position Sitting Pulse 97 Pulse Source Pulse Oximeter Pulse Oximetry (%) 96 Oxygen Delivery Method Room Air Intake Visit Reasons: follow up labs/bp Allergies No Known Allergies Allergy (Verified 08/07/24 08:44) Medication List - Last Reconciled 08/07/24 by Alecia Christiansen PA-C apixaban (Eliquis) 5 mg PO BID methimazole 2.5 mg (1/2 x 5 mg) PO DAILY metoprolol succinate ER 37.5 mg (1.5 x 25 mg) PO DAILY Tobacco use date assessed: 07/17/24 Dental Screening Dental Screen Date: 04/16/24 HPI follow up labs/bp HPI Details Patient is a 59-year-old female who presents today for a follow up. -She wonders if this all started because she was smoking marijuana from a local dispensary that got shut down because they had a mold issue. -Shoulder lump resolved CV: Blood pressure today in the office is 126/86. She is currently on metoprolol 37.5 mg daily. Tolerating this well. Recently saw Cardiology and has a 14 day Holter monitor and echo. She is on Eliquis. -She has stopped drinking and wants to reduce her cholesterol with diet. Endo: On methimazole for her hyperthyroidism. Following closely with Dr. Myles. Derm: Followed with Dr. Mcnair. Her face rash has resolved. [facility] Medical History (Updated 07/14/24 @ 10:11 by Helder Osman MD) Gilbert syndrome Hyperthyroidism A-fib Hx of skin cancer, basal cell Dyslipidemia HTN (hypertension), benign Surgical History No pertinent past surgical history Family History Mother Breast cancer Social History (Updated 07/14/24 @ 10:00 by Palak Erickson) Housing: House Alcohol intake: current Patient Tobacco Use Status: Never used Tobacco e-Cigarette/Vaping Use: Never Used Second Hand Smoke Exposure: Yes Substance Use Type: Marijuana service: No Current occupational status: unemployed Cognitive needs: No Hearing needs: No Vision needs: Yes Questionnaire PHQ-9 Over the last 2 weeks, how often have you been bothered by any of the following problems? 9. Thoughts that you would be better off or of hurting yourself in some way: not at all Source: Developed by Drs. Cosme Cullen, Josefa Verde, Ronnell Alaniz and colleagues, with an educational kian from [employer]. Thrive Questionnaire Date Thrive assessed: 08/05/24 I am a: Patient What is your living situation today?: I have a steady place to live Within the past 12 months, did the food you bought not last and you didn't have the money to get more?: I choose not to answer this question Within the past 12 months, did you worry whether your food would run out before you got money to buy more?: I choose not to answer this question Do you have trouble paying for medicines?: No Do you have trouble getting transportation to medical appointments?: No Do you have trouble paying your heating and electricity bill?: I choose not to answer this question Do you have trouble taking care of your child, family member or friend?: I choose not to answer this question Do you have trouble with day-to-day activities such as bathing, preparing meals, shopping, managing finances, etc.?: I choose not to answer this question Are you currently unemployed and looking for a job?: I choose not to answer this question Are you interested in more education?: I choose not to answer this question THRIVE Score: 0 Physical exam (Primary Care) Vital Signs: Last Vital Signs Pulse 97 08/07/24 08:43 BP 126/86 08/07/24 08:43 Pulse Ox 96 08/07/24 08:43 Oxygen Delivery Method Room Air 08/07/24 08:43 BMI result Body Mass Index 30.3 Tobacco/Smoking Status: Tobacco use Status Tobacco use date assessed 07/17/24 08/07/24 08:47 Patient Tobacco Use Status Never used Tobacco 08/07/24 08:47 e-Cigarette/Vaping Use Never Used 08/07/24 08:47 Thrive Assessment: Date of Thrive Assessment Date Thrive assessed 08/05/24 08/07/24 08:47 Const Orientation/consciousness: patient oriented x3 HENMT Ears: hearing grossly normal bilaterally Neck Thyroid: Thyroid normal Lymphatic: no lymphadenopathy noted Resp Auscultation: clear to auscultation bilaterally Cardio Rate: regular rate Rhythm: regular rhythm Heart sounds: S1 normal heart sound present and S2 normal heart sound present GI Inspection: Yes normal to inspection Palpation (GI): Soft to palpation and Other GI palpation findings present (nontender, no cva tenderness) Auscultation: normoactive bowel sounds Rectal Exam - Female: deferred Skin General skin exam: no rashes or lesions noted Neuro General: patient oriented x3, gait normal and no focal motor deficits Results Reviewed Results Reviewed: Laboratory Tests 06/09/24 06/20/24 07/09/24 10:55 07:49 12:19 WBC 5.9 RBC 4.71 Hgb 14.6 Hct 42.4 Plt Count 240 Total Bilirubin 0.6 Direct Bilirubin 0.2 AST 30 ALT 44 H Alkaline Phosphatase 95 Total Protein 6.9 Albumin 4.3 TSH 0.07 L 2.35 12.72 H Free T4 0.92 0.63 L 0.59 L Free T3 3.5 2.2 L 2.7 TSH Receptor Ab 13.26 H Assessment and Plan Assessment & Plan (1) PAF (paroxysmal atrial fibrillation): Code(s): I48.0 - Paroxysmal atrial fibrillation Plan: Continue on Eliquis and metoprolol. Wearing the 14 day heart monitor. Has follow up arranged with Cardiology. (2) HTN (hypertension), benign: Code(s): I10 - Essential (primary) hypertension Plan: Continue current regimen (3) Dyslipidemia: Code(s): E78.5 - Hyperlipidemia, unspecified Plan: Continue with healthier diet. (4) Hyperthyroidism: Code(s): E05.90 - Thyrotoxicosis, unspecified without thyrotoxic crisis or storm Plan: Following with endocrinology. Not very well-controlled. She does fluctuate with her dosage. Still uninterested in thyroidectomy Coding Level of Care Code Est Pt Level 4 (08462) Diagnoses PAF (paroxysmal atrial fibrillation) I48.0 HTN (hypertension), benign I10 Dyslipidemia E78.5 Hyperthyroidism E05.90
== END 2024-08-07 10:22 | disposition home or self-care (01) ==
PROVIDERS: PCP Physician Assistant; Visit Provider Physician Assistant
DX: I48.0 Paroxysmal atrial fibrillation (principal); I10 Essential (primary) hypertension; E78.5 Hyperlipidemia, unspecified; E05.90 Thyrotoxicosis, unspecified without thyrotoxic crisis or storm

== ENCOUNTER → 2024-08-07 08:33 | Outpatient (BNVA) | payer OTHER, SELFPAY | PROVIDERS: PCP Physician Assistant; Visit Provider Physician Assistant | DX: I48.0 Paroxysmal atrial fibrillation (principal); I10 Essential (primary) hypertension; E78.5 Hyperlipidemia, unspecified; E05.90 Thyrotoxicosis, unspecified without thyrotoxic crisis or storm | CPT/HCPCS: 99212 ==

== ENCOUNTER 2024-08-13 08:29 | Outpatient (AMB) | payer OTHER, SELFPAY ==
--- NOTE | 2024-08-13 08:40 | A.OFFPC_ITS ---
Vital Signs 08/13/24 08:41 Height 5 ft 2 in Weight 167 lb 8 oz BMI 30.6 BP 124/72 Blood Pressure Location Lt brachial Position Sitting Respiration 14 Pulse 72 Pulse Source Pulse Oximeter Pulse Oximetry (%) 99 Oxygen Delivery Method Room Air Intake Visit Reasons: follow up blood pressure Intake Note: Follow up blood pressure Curriculum Facilitator Required: No Allergies No Known Allergies Allergy (Verified 08/13/24 08:41) Medication List - Last Reconciled 08/13/24 by Alecia Christiansen PA-C apixaban (Eliquis) 5 mg PO BID methimazole 2.5 mg (1/2 x 5 mg) PO DAILY metoprolol succinate ER 37.5 mg (1.5 x 25 mg) PO DAILY Tobacco use date assessed: 07/17/24 Dental Screening Dental Screen Date: 04/16/24 HPI follow up blood pressure HPI Details Patient is a 59-year-old female who presents today for a follow up. -she states that she did follow with [facility] for the potential mold toxicity related to the marijuana that she smoked and is still smoking. She s tates that they want a 1000 dollars for the testing and potential treatment so she is going to hold off on this right now but does wonder if this is possibly causing some of her thyroid issues. CV: Blood pressure today in the office is 124/72. She is currently on metoprolol 37.5 mg daily. Tolerating this well. Recently saw Cardiology and has a 14 day Holter monitor and echo. She is on Eliquis. She wanted to come in today so I could check her blood pressure again because although she monitors it at home sometimes it can go up and down. -She has stopped drinking and wants to r educe her cholesterol with diet. Endo: On methimazole for her hyperthyroidism. Following closely with Dr. Myles. [facility] Medical History (Updated 07/14/24 @ 10:11 by Helder Osman MD) Gilbert syndrome Hyperthyroidism A-fib Hx of skin cancer, basal cell Dyslipidemia HTN (hypertension), benign Surgical History No pertinent past surgical history Family History Mother Breast cancer Social History (Updated 07/14/24 @ 10:00 by Palak Erickson) Housing: House Alcohol intake: current Patient Tobacco Use Status: Never used Tobacco e-Cigarette/Vaping Use: Never Used Second Hand Smoke Exposure: Yes Substance Use Type: Marijuana service: No Current occupational status: unemployed Cognitive needs: No Hearing needs: No Vision needs: Yes Questionnaire Thrive Questionnaire Date Thrive assessed: 08/05/24 What is your living situation today?: I have a steady place to live Within the past 12 months, did the food you bought not last and you didn't have the money to get more?: I choose not to answer this question Within the past 12 months, did you worry whether your food would run out before you got money to buy more?: I choose not to answer this question Do you have trouble paying for medicines?: No Do you have trouble getting transportation to medical appointments?: No Do you have trouble paying your heating and electricity bill?: I choose not to answer this question Do you have trouble taking care of your child, family member or friend?: I choose not to answer this question Do you have trouble with day-to-day activities such as bathing, preparing meals, shopping, managing finances, etc.?: I choose not to answer this question Are you currently unemployed and looking for a job?: I choose not to answer this question Are you interested in more education?: I choose not to answer this question Please select the resources that you would like help with: None Currently or been in a relationship where the following occur: I choose not to answer THRIVE Score: 0 AUDIT C Alcohol Use Questionnaire (AUDIT-C) 1. How often do you have a drink containing alcohol?: Never Total Score: 0 BECKY-7 AMB Questionnaire BECKY-7 Feeling nervous, anxious, or on edge: 0 = Not at all Not being able to stop or control worryin = Not at all Source: Developed by Drs. Cosme Cullen, Josefa Verde, Ronnell Alaniz and colleagues, with an educational kian from [employer]. Physical exam (Primary Care) Vital Signs: Last Vital Signs Pulse 72 08/13/24 08:41 Resp 14 08/13/24 08:41 BP 124/72 08/13/24 08:41 Pulse Ox 99 08/13/24 08:41 Oxygen Delivery Method Room Air 08/13/24 08:41 BMI result Body Mass Index 30.6 Tobacco/Smoking Status: Tobacco use Status Tobacco use date assessed 07/17/24 08/13/24 08:44 Patient Tobacco Use Status Never used Tobacco 08/13/24 08:44 e-Cigarette/Vaping Use Never Used 08/13/24 08:44 Thrive Assessment: Date of Thrive Assessment Date Thrive assessed 08/05/24 08/13/24 08:44 Currently or been in a relationship where the following occur: I choose not to answer Const Orientation/consciousness: patient oriented x3 HENMT Ears: hearing grossly normal bilaterally Neck Thyroid: Thyroid normal Lymphatic: no lymphadenopathy noted Resp Auscultation: clear to auscultation bilaterally Cardio Rate: regular rate Rhythm: regular rhythm Heart sounds: S1 normal heart sound present and S2 normal heart sound present GI Inspection: Yes normal to inspection Palpation (GI): Soft to palpation and Other GI palpation findings present (nontender, no cva tenderness) Auscultation: normoactive bowel sounds Rectal Exam - Female: deferred Skin General skin exam: no rashes or lesions noted Neuro General: patient oriented x3, gait normal and no focal motor deficits Assessment and Plan Assessment & Plan (1) HTN (hypertension), benign: Code(s): I10 - Essential (primary) hypertension Plan: Blood pressure WNL. Continue current regimen. (2) Hyperthyroidism: Code(s): E05.90 - Thyrotoxicosis, unspecified without thyrotoxic crisis or storm Plan: Continue follow up with Dr. Myles. (3) Dyslipidemia: Code(s): E78.5 - Hyperlipidemia, unspecified Plan: Working on a healthier diet. Labs ordered to be rechecked in a few months prior to her appointment in October. Plan Advised her to stop smoking marijuana. Orders: Orders Comprehensive [place]. Panel Fast 3 Months E78.5 - Hyperlipidemia, unspecified, I10 - Essential (primary) hypertension Coding Level of Care Code Est Pt Level 4 (07575) Complex EM visit Add On G2211 Diagnoses HTN (hypertension), benign I10 Hyperthyroidism E05.90 Dyslipidemia E78.5
[2024-08-13 08:41] VITALS: BP 124/72; PULSE 72; RESP 14; O2SAT 99; BMI 30.6
== END 2024-08-13 10:18 | disposition home or self-care (01) ==
PROVIDERS: PCP Physician Assistant; Visit Provider Physician Assistant
DX: I10 Essential (primary) hypertension (principal); E05.90 Thyrotoxicosis, unspecified without thyrotoxic crisis or storm; E78.5 Hyperlipidemia, unspecified

== ENCOUNTER → 2024-08-13 09:23 | Outpatient (BNV) | payer OTHER, SELFPAY | PROVIDERS: PCP Physician Assistant; Visit Provider Internal Medicine | DX: I48.0 Paroxysmal atrial fibrillation (principal) | CPT/HCPCS: 93306 ==

== ENCOUNTER → 2024-08-13 09:27 | Outpatient (REF) | payer OTHER, SELFPAY ==
--- NOTE | 2024-08-13 09:23 | CA_ITS ---
Transthoracic Echocardiogram Patient (Last, First, Middle): Lelo Ma, Gender: Female Date of : 1965 Age: 59 Procedure Date: 08/13/2024 Procedure Type: Transthoracic Echocardiogram Location: OP Height: 160.02 cm Weight: 74.84 kg BSA: 1.78 m2 Heart Rate: bpm BP: 124 / 75 mmHg Spice Cleaner: CORINNE Referring MD: Helder Osman MD Symptoms: I48.0 - Paroxysmal atrial fibrillation Study Quality: Adequate ECG Rhythm: Sinus Conclusions: - The left ventricular systolic function is normal. The calculated ejection fraction is 65% by biplane method. - No obvious valvular pathology seen on this study. Findings Left Ventricle Normal left ventricular cavity size. There is normal left ventricular wall thickness. The left ventricular systolic function is normal. The calculated ejection fraction is 65% by biplane method. There is no evidence of regional wall motion abnormalities. Diastolic function is normal for age. Right Ventricle Normal right ventricular cavity size and systolic function. Atria Both atria are normal in size. Aortic Valve There is a normal trileaflet aortic valve. There is no aortic valve stenosis. There is no aortic valve regurgitation. Mitral Valve The mitral valve appears normal. There is trace mitral valve regurgitation. There is no mitral valve stenosis. Pulmonic Valve The pulmonic valve is likely normal. Tricuspid Valve There is trace tricuspid valve regurgitation. There is no evidence of pulmonary hypertension. Great Vessels The sinuses of valsalva, sino tubular ridge, and asc aorta are normal in size. Venous The inferior vena cava is normal in size and collapses greater than 50% with inspiration. Pericardium/Pleural There is no evidence of pericardial effusion. Prior Study Comparison No prior study available for comparison. Recommendations, Care & Conclusions No obvious valvular pathology seen on this study. Measurements 2D Linear Measurements IVSd: 0.87 0.6-0.9/0.6-1.0 cm LVIDd: 4.47 3.9-5.3/4.2-5.9 cm LVIDd Index: 2.51 2.4-3.2/2.2-3.1 cm/m2 LVIDs: 2.74 2.0-3.6 cm LVPWd: 0.77 0.7-1.1 cm LA Diam: 3.30 2.7-3.8/3.0-4.0 cm LAIDs Index: 1.85 1.5-2.3 cm/m2 LV Mass: 144.10 67-162/88-224 g LV Mass Index: 80.96 43-95/49-115 g/m2 LVOT Diam: 2.00 3.0+(-)1.3 cm 2D Systolic Function EF 4C: 62.30 >55% EF 2C: 67.90 >55% EF BiP: 65.20 >55% Mitral Valve MV Pk E: 0.86 MV PK A: 0.63 MV Decel Time: 206.00 E/A: 1.40 E'Lateral: 9.03 E'Medial: 7.40 E/E' Med: 11.60 E/E' Lat: 9.50 PHT: 60.00 MVA PHT: 3.67 Decel Cavalier: 4.15 Aortic Valve AoV Pk Gary: 1.23 AoV Mn Gary: 0.87 AoV VTI: 0.32 AoV Pk Grad: 6.00 Aov Mn Grad: 3.00 JAZZY Cont.VTI: 2.61 LVOT LVOT Pk Gary: 1.12 LVOT Mn Gary: 0.67 LVOT VTI: 0.27 LVOT Pk Grad: 5.00 LVOT Mn Grad: 2.00 LVOT Diam: 2.00 LVOT Area: 3.14 Diastolic Function MV Pk E: 0.86 MV Pk A: 0.63 E/A: 1.40 E'Medial: 7.40 E/E' Med: 11.60 E' Laterial: 9.03 E/E' Lat: 9.50 Right Ventricle TAPSE (mm): 27.30 TVS' Gary: 14.60 Tricuspid Valve TR Pk Gary: 2.39 TR Pk Grad: 23.00 RA Press: 3.00 RVSP: 26.00 Great Vessels Aorta Sinus of Valsalva: 2.88 2.0-3.[address] Ridge: 2.70 1.7-3.4 cm Ao Asc: 3.20 2.1-3.4 cm Updated in Other Vendor System with Status of Final Helder Osman MD electronically signed on 08/15/2024 9:01:12 AM with status of Final
[2024-08-13 10:35] LABS: MANUAL DIFF FLAG NO
[2024-08-13 10:46] LABS: Basophils Absolute Auto 0.1 X10*3/uL (0.0-0.2); Eosinophils Absolute Auto 0.1 X10*3/uL (0.0-0.4); Eosinophils Percent Auto 2.4 % (0-4); Hematocrit 44.5 % (37.0-47.0); Hemoglobin 15.2 g/dl (12.0-16.0); Imm Gran Abs Auto 0.01 X10*3/uL (0.00-0.03); Imm Gran Pct Auto 0.2 % (0.0-0.4); Lymphocytes Absolute Auto 2.6 X10*3/uL (1.2-4.9); Lymphocytes Percent Auto 45.5 % (20-40); Mean Corpuscular HGB Conc 34.2 g/dl (31.0-35.0); Mean Corpuscular Hemoglobin 30.8 pg (27.0-33.0); Mean Corpuscular Volume 90.1 fL (80.0-98.0); Mean Platelet Volume 10.1 fL (9.4-12.3); Monocytes Absolute Auto 0.4 X10*3/uL (0.1-1.2); Monocytes Percent Auto 6.9 % (2-11); Neutrophils Absolute Auto 2.6 x10*3/uL (2.0-8.3); Platelet Count 242 X10*3/uL (160-400); Red Blood Count 4.94 X10*6/uL (4.20-5.50); Red Cell Distribution Width 11.8 % (11.0-16.0); White Blood Count 5.8 X10*3/uL (4.8-10.8)
[2024-08-13 11:19] LABS: Alanine Aminotransferase 27 U/L (0-31); Albumin Level 4.4 g/dL (3.5-5.0); Alkaline Phosphatase 89 U/L (39-117); Aspartate Amino Transferase 21 U/L (5-31); Bilirubin Direct 0.3 mg/dL (0.0-0.5); Total Protein 7.1 g/dL (6.5-8.0)
[2024-08-13 11:37] LABS: Free T4 (Free Thyroxine) 0.91 ng/dL (0.71-1.85); Thyroid Stimulating Hormone 2.33 uIU/mL (0.32-4.0)
[2024-08-14 07:33] LABS: Triiodothyronine T3 Free 3.6 pg/mL (2.3-4.2)
== END ==
LOC: HO.CARD 09:27
PROVIDERS: Internal Medicine Endocrinology, Diabetes & Metabolism; PCP Physician Assistant; Visit Provider Internal Medicine
DX: I48.0 Paroxysmal atrial fibrillation (principal); E05.90 Thyrotoxicosis, unspecified without thyrotoxic crisis or storm; I10 Essential (primary) hypertension; E78.5 Hyperlipidemia, unspecified
CPT/HCPCS: 36415; 80076; 84439; 84443; 84481; 85025; 93306; 99212

== ENCOUNTER 2024-08-19 13:46 | Outpatient (AMB) | payer OTHER, SELFPAY ==
[2024-08-19 13:47] VITALS: BP 144/94; PULSE 52; BMI 30.6
--- NOTE | 2024-08-19 13:47 | A.OFFVIS_ITS ---
Vital Signs 08/19/24 13:47 Height 5 ft 2 in Weight 167 lb 1.766 oz BMI 30.6 BP 144/94 H Blood Pressure Location Lt brachial Position Sitting Pulse 52 Pulse Source Pulse Oximeter Intake Visit Reasons: f/up echo Enterprise Integration Developer Required: No Accompanied by: Self / Same As Patient Allergies No Known Allergies Allergy (Verified 08/13/24 08:41) Medication List - Last Reconciled 08/19/24 by Helder Osman MD apixaban (Eliquis) 5 mg PO BID methimazole 2.5 mg (1/2 x 5 mg) PO DAILY metoprolol succinate ER 37.5 mg (1.5 x 25 mg) PO DAILY HPI Comments Details: Lelo returns for follow-up. She was recently seen in consultation regarding atrial fibrillation. She was in [place] around January 2024. At that time, she did not feel good and admitted to a local hospital. Subsequently, diagnosed with atrial fibrillation. It seems that she also got diagnosed with hyperthyroidism around the same time. Then started beta-blockers as well as anticoagulation. Overall, she states she feels good. No new complaints. No recurrent palpitations. No other complaints like angina or shortness of breath. No previous cardiac history. For the hyperthyroidism, she is on methimazole. [facility] Medical History (Updated 07/14/24 @ 10:11 by Helder Osman MD) Gilbert syndrome Hyperthyroidism A-fib Hx of skin cancer, basal cell Dyslipidemia HTN (hypertension), benign Surgical History No pertinent past surgical history Family History Mother Breast cancer Social History Housing: House Alcohol intake: current Patient Tobacco Use Status: Never used Tobacco e-Cigarette/Vaping Use: Never Used Second Hand Smoke Exposure: Yes Substance Use Type: Marijuana service: No Current occupational status: unemployed Cognitive needs: No Hearing needs: No Vision needs: Yes Review of Systems Const Denies chills, Denies fatigue, Denies fever(s), Denies weight gain and Denies weight loss ENT Denies dizziness Card Denies chest pain, Denies leg edema, Denies lightheadedness, Denies palpitations, Denies dyspnea on exertion, Denies orthopnea and Denies other Resp Denies cough and Denies dyspnea on exertion GI Denies hematochezia and Denies change in stool character Musc Denies abnormal gait, Denies muscle weakness, Denies numbness, Denies radiating pain into limb and Denies tingling Neuro Denies abnormal gait, Denies dizziness, Denies numbness and Denies tingling Endo Denies fatigue and Denies palpitations Physical Exam Vital Signs: Last Vital Signs Pulse 52 08/19/24 13:47 BP 144/94 H 08/19/24 13:47 BMI result Body Mass Index 30.6 Const General: comfortable and no acute distress Orientation/consciousness: patient oriented x3 HEENT Other: Unremarkable Head: Yes normal to inspection Neck Neck: Yes normal visual inspection Chest Chest palpation & inspection: normal inspection of the chest Resp Auscultation: clear to auscultation bilaterally Cardio Palpation: normal PMI Heart sounds: S1 normal heart sound present, S2 normal heart sound present, no gallops, no murmurs and no rubs GI Palpation (GI): Soft to palpation Back/Spine/Pelvis Other: unremarkable Skin General skin exam: no rashes or lesions noted Neuro General: patient oriented x3 Extrem General: Yes normal to inspection Psych Mental Status: mental status grossly normal Assessment & Plan Assessment & Plan (1) PAF (paroxysmal atrial fibrillation): Code(s): I48.0 - Paroxysmal atrial fibrillation Category: Medical (2) Hyperthyroidism: Code(s): E05.90 - Thyrotoxicosis, unspecified without thyrotoxic crisis or storm Category: Medical Plan Cardiac data reviewed. Echocardiogram from [place], 02/06/2024 with LVEF of 55%. Moderate left atrial dilatation. Mild mitral regurgitation. Moderate tricuspid regurgitation with moderate pulmonary hypertension. Repeat echocardiogram with LVEF of 65% and otherwise unremarkable. Myocardial perfusion imaging study from [place] was negative for ischemia or infarct. Overall, atrial fibrillation episode in setting of newly diagnosed hyperthyroidism. Her Holter is still pending but no clinical atrial fibrillation episodes. Continue beta-blockers. With regard to anticoagulation, likely will not need long-term. If there is no definitive atrial fibrillation on the Holter, may stop. With regard to blood pressure, slightly elevated today but she states she has no history of hypertension and home blood pressures even lower than this. Follow-up in 3-4 months. Total time spent including review of outside records, counseling, documentation, coordination of care-31 minutes. Coding Level of Care Code Est Pt Level 4 (77477) Diagnoses PAF (paroxysmal atrial fibrillation) I48.0 Hyperthyroidism E05.90
== END 2024-08-19 14:20 | disposition home or self-care (01) ==
PROVIDERS: PCP Physician Assistant; Visit Provider Internal Medicine
DX: I48.0 Paroxysmal atrial fibrillation (principal); E05.90 Thyrotoxicosis, unspecified without thyrotoxic crisis or storm
CPT/HCPCS: 99214

== ENCOUNTER → 2024-08-19 13:46 | Outpatient (BNVA) | payer OTHER, SELFPAY | PROVIDERS: PCP Physician Assistant; Visit Provider Internal Medicine | DX: I48.0 Paroxysmal atrial fibrillation (principal); E05.90 Thyrotoxicosis, unspecified without thyrotoxic crisis or storm | CPT/HCPCS: 99212 ==

== ENCOUNTER 2024-09-09 11:22 | Outpatient (AMB) | payer OTHER, SELFPAY ==
[2024-09-09 11:23] VITALS: BP 142/80; PULSE 70; BMI 30.7
--- NOTE | 2024-09-09 11:23 | MHC.OFFVIS ---
Vital Signs 09/09/24 11:23 Height 5 ft 2 in Weight 167 lb 15.876 oz BMI 30.7 BP 142/80 H Blood Pressure Location Lt brachial Position Sitting Pulse 70 Pulse Source Pulse Oximeter Intake Visit Reasons: f/u hyperthyroidism-conf Intake Note: Patient present today for Hyperthyroidism follow up visit. Can Closing Machine Tender Required: No Accompanied by: Self / Same As Patient Allergies No Known Allergies Allergy (Verified 09/09/24 11:27) Medication List - Last Reconciled 09/09/24 by Cosme Myles MD apixaban (Eliquis) 5 mg PO BID latanoprost 0.005% 1 drp ophthalmic (eye) QPM methimazole 2.5 mg (1/2 x 5 mg) PO DAILY metoprolol succinate ER 37.5 mg (1.5 x 25 mg) PO DAILY HPI Comments Details: 59 YO f with PMHx a fib who is seen in consultation for hyperthyroidism at the request of PCP. Was initially diagnosed with hyperthyroidism in 01/2024 with presentation of hyperthyroidism/afib . Was placed on methimazole 15 mg QD . Recently stopped 1 wk ago . On metoprolol Currently denies any dysphagia or hoarseness of voice. Denies sensation of swelling in the neck or difficulty breathing while lying flat. Denies any tenderness in the neck. Denies any palpitations, tremors, weight loss, frequent bowel movements. Has ocular complaints,some blurred but no double vision. Denies hair loss, dry skin, heat or cold intolerance, weight gain, confusion. Denies any history of head or neck irradiation. Denies any family history of thyroid cancer. Had ultrasounds and scan in the past. Aunt was on thyroid medications Thyroid US: Labs: Currently on methimazole 2.5 mg q.d. TRAB antibodies are positive recently, Saw Dr. Lomax at [facility] . Has f/u 12/29/2023 [facility] Medical History (Updated 07/14/24 @ 10:11 by Helder Osman MD) Gilbert syndrome Hyperthyroidism A-fib Hx of skin cancer, basal cell Dyslipidemia HTN (hypertension), benign Surgical History No pertinent past surgical history Family History Mother Breast cancer Social History Housing: House Alcohol intake: current Patient Tobacco Use Status: Never used Tobacco e-Cigarette/Vaping Use: Never Used Second Hand Smoke Exposure: Yes Substance Use Type: Marijuana service: No Current occupational status: unemployed Cognitive needs: No Hearing needs: No Vision needs: Yes Physical Exam Vital Signs: Last Vital Signs Pulse 70 09/09/24 11:23 BP 142/80 H 09/09/24 11:23 BMI result Body Mass Index 30.7 Const Other: There is proptosis of the righteye greater than left. Thyroid gland is larger size weighs about 50 g . There are no thyroid nodules palpated Assessment & Plan Assessment & Plan (1) Hyperthyroidism: Code(s): - Thyrotoxicosis, unspecified without thyrotoxic crisis or storm Category: Medical Plan: Is a 59-year-old white female with a history of Graves disease and hyperthyroidism very sensitive to anti-thyroid medication. She is currently on 2.5 mg mg of methimazole . She appears to be clinically and biochemically euthyroid Plan is to continue the current therapy. We will discuss definitive therapy with patient which would include possible thyroidectomy. Would avoid radioactive iodine in this patient with TADEO Orders: Orders Free T4 (Free Thyroxine) 4 Months E0. - Thyrotoxicosis, unspecified without thyrotoxic crisis or storm Thyroid Stimulating Hormone 4 Months E05.90 - Thyrotoxicosis, unspecified without thyrotoxic crisis or storm Triiodothyronine T3 Free 4 Months E0.90 - Thyrotoxicosis, unspecified without thyrotoxic crisis or storm Coding Level of Care Code Est Pt Level 3 (84872) Diagnoses Hyperthyroidism E0.90
== END 2024-09-09 12:11 | disposition home or self-care (01) ==
PROVIDERS: PCP Physician Assistant; Visit Provider Internal Medicine Endocrinology, Diabetes & Metabolism
DX: E05.90 Thyrotoxicosis, unspecified without thyrotoxic crisis or storm (principal)
CPT/HCPCS: 99213

== ENCOUNTER → 2024-09-09 11:22 | Outpatient (BNVA) | payer OTHER, SELFPAY | PROVIDERS: PCP Physician Assistant; Visit Provider Internal Medicine Endocrinology, Diabetes & Metabolism | DX: E05.90 Thyrotoxicosis, unspecified without thyrotoxic crisis or storm (principal) | CPT/HCPCS: 99212 ==

== ENCOUNTER 2024-09-22 09:25 | Outpatient (REF) | payer OTHER, SELFPAY ==
[2024-09-23 10:28] LABS: HPV 16,18/45 See PAP report
== END 2024-09-22 09:26 | disposition home or self-care (01) ==
LOC: HO.LNP 09:25
PROVIDERS: PCP Physician Assistant; Visit Provider Obstetrics & Gynecology
DX: Z01.419 Encounter for gynecological examination (general) (routine) without abnormal findings (principal); Z11.51 Encounter for screening for human papillomavirus (HPV); Z12.72 Encounter for screening for malignant neoplasm of vagina
CPT/HCPCS: 87624; 88175; 99386

== ENCOUNTER 2024-09-22 09:25 | Outpatient (AMB) | payer OTHER, SELFPAY ==
[2024-09-22 09:26] VITALS: BP 118/66; BMI 30.5
--- NOTE | 2024-09-22 09:26 | MHC.OFFVIS ---
Vital Signs 09/22/24 09:26 Height 5 ft 2 in Weight 167 lb BMI 30.5 BP 118/66 Blood Pressure Location Lt brachial Position Sitting Intake Visit Reasons: New patient Annual/DO NOT RS Allergies No Known Allergies Allergy (Verified 09/22/24 09:26) HPI Comments Details: Presenting for annual exam. No complaints. Last Pap/HPV was 15 years ago Last Mammogram was BI-RADS 1 in 05/12 No previous screening Colonoscopy PFSH Medical History Gilbert syndrome Hyperthyroidism A-fib Hx of skin cancer, basal cell Dyslipidemia HTN (hypertension), benign Surgical History No pertinent past surgical history Family History Mother Breast cancer Social History Housing: House Alcohol intake: current Patient Tobacco Use Status: Never used Tobacco e-Cigarette/Vaping Use: Never Used Second Hand Smoke Exposure: Yes Substance Use Type: Marijuana service: No Current occupational status: unemployed Cognitive needs: No Hearing needs: No Vision needs: Yes Female Reproductive History Menstrual control method: none Total pregnancies: 0 History of STI: No Date of Mammogram: 05/16/24 History of abnormal mammogram: No Date of last Bone Density Screenin05/16/24 Review of Systems Const All systems reviewed & are unremarkable except as noted in HPI and below Card Reports as per HPI Resp Reports as per HPI GI Reports as per HPI and Reports no additional complaints Reports as per HPI Physical Exam Vital Signs: Last Vital Signs BP 118/66 09/22/24 09:26 BMI result Body Mass Index 30.5 Const General: cooperative, healthy appearing and comfortable Chest Chest palpation & inspection: normal inspection of the chest and normal palpation of entire chest wall Breast/axilla inspection: normal inspection of the breasts and normal inspection of the axillae Breast/axilla palpation: normal palpation of the breasts, normal palpation of the axillae and no axillary lymphadenopathy Resp Effort & Inspection: normal respiratory effort Auscultation: clear to auscultation bilaterally Percussion: percussion normal Cardio Palpation: normal PMI Rate: regular rate Rhythm: regular rhythm Heart sounds: no murmurs and no rubs Peripheral pulses: Peripheral pulses 2+ throughout GI Inspection: Yes normal to inspection Palpation (GI): Soft to palpation, nontender, no guarding, not rigid and No hepatosplenomegaly present Percussion: Yes normal to percussion Auscultation: normal bowel sounds Rectal Exam - Female: deferred General: Yes bladder normal to palpation External Female Exam: No lesion Speculum Exam - Vagina: normal appearance of the vagina, normal palpation, normal vaginal discharge and not erythematous Speculum Exam - Cervix: normal appearance of the cervix and normal palpation Bimanual exam- vagina & uterus: normal bimanual exam, normal palpation, uterine size normal, bladder normal to palpation, consistency normal and normal palpation Bimanual Exam- Adnexa, other: normal adnexae, no masses and no tenderness Assessment & Plan Assessment & Plan (1) Well woman exam: Code(s): Z01.419 - Encounter for gynecological examination (general) (routine) without abnormal findings Category: Medical Plan: Co testing done. Counseled the patient about the recommended dietary allowance of 1200 mg of Calcium & 600 IU of vitamin D. Instructions given the patient to schedule next screening Mammogram in 05/13. The patient scheduled with GI for screening colonoscopy in 01/13 . The patient was instructed to perform monthly self-breast exams and schedule annual exam in a year. All questions answered and the patient verbalized understanding. Coding Level of Care Code New Pt Prev Care 40-64y(65748) Diagnoses Well woman exam Z01.419
== END 2024-09-22 09:51 | disposition home or self-care (01) ==
LOC: HO.HWS 09:26
PROVIDERS: PCP Physician Assistant; Visit Provider Obstetrics & Gynecology
DX: Z01.419 Encounter for gynecological examination (general) (routine) without abnormal findings (principal)
CPT/HCPCS: 99386

== ENCOUNTER 2025-03-24 09:06 | Outpatient (REF) | payer OTHER, SELFPAY ==
[2025-03-24 12:18] LABS: Free T4 (Free Thyroxine) 0.87 ng/dL (0.71-1.85)
[2025-03-24 14:27] LABS: Alanine Aminotransferase 28 U/L (0-31); Albumin Level 3.9 g/dL (3.5-5.0); Anion Gap 12 (12-20); Aspartate Amino Transferase 37 U/L (5-31); Bilirubin Total 0.6 mg/dL (0.0-1.0); Blood Urea Nitrogen 17 mg/dL (9-16); Calcium 8.8 mg/dL (8.4-10.2); Carbon Dioxide 26 mmol/L (22-29); Chloride 107 mmol/L (96-108); Cholesterol 160 mg/dL (<200); Estimated Glomerular Filt Rate > 60; Glucose Fasting 88 mg/dL (60-99); HDL Cholesterol 48 mg/dL (>40); LDL Cholesterol Calculated 89 mg/dL (<100); Sodium 141 mmol/L (135-145); Total Protein 6.6 g/dL (6.5-8.0); Triglycerides 119 mg/dL (<150)
[2025-03-24 18:19] LABS: Alkaline Phosphatase 87 U/L (39-117)
== END 2025-03-24 09:07 | disposition home or self-care (01) ==
LOC: HO.WFDLDS 09:06
PROVIDERS: Referring Provider Internal Medicine Endocrinology, Diabetes & Metabolism; Visit Provider Physician Assistant
DX: I10 Essential (primary) hypertension (principal); E78.5 Hyperlipidemia, unspecified; E05.90 Thyrotoxicosis, unspecified without thyrotoxic crisis or storm
CPT/HCPCS: 36415; 80053; 80061; 84439; 84443; 84481

== ENCOUNTER 2025-03-26 14:03 | Outpatient (AMB) | payer OTHER, SELFPAY ==
[2025-03-26 14:05] VITALS: BP 150/92; PULSE 65; O2SAT 98; BMI 27.6
--- NOTE | 2025-03-26 14:05 | A.OFFVIS_ITS ---
Vital Signs 03/26/25 14:05 Height 5 ft 2 in Weight 151 lb 0.266 oz BMI 27.6 BP 150/92 H Blood Pressure Location Lt brachial Position Sitting Pulse 65 Pulse Source Pulse Oximeter Pulse Oximetry (%) 98 Oxygen Delivery Method Room Air Intake Visit Reasons: Hyperthyroidism Intake Note: Patient present today for Hyperthyroidism office visit. 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 Was initially diagnosed with hyperthyroidism in 01/2024 with presentation of hyperthyroidism/afib . Was placed on methimazole 15 mg QD . Recently stopped 1 wk ago . On metoprolol Currently denies any dysphagia or hoarseness of voice. Denies sensation of swelling in the neck or difficulty breathing while lying flat. Denies any tenderness in the neck. Denies any palpitations, tremors, weight loss, frequent bowel movements. Has ocular complaints,some blurred but no double vision. Denies hair loss, dry skin, heat or cold intolerance, weight gain, confusion. Denies any history of head or neck irradiation. Denies any family history of thyroid cancer. Had ultrasounds and scan in the past. Aunt was on thyroid medications Thyroid US: Labs: Currently on methimazole 2.5 mg q.d. TRAB antibodies are positive recently, Saw Dr. Lomax at [facility] . Has appt next wk . The patient is a 59-year-old female presenting with thyroid imbalance and associated symptoms including lethargy and history of Graves' Disease. The TSH levels increased despite a stable methimazole dose of 2.5 mg, revealing the therapeutic challenges in maintaining stable thyroid function. Her prior episodes of atrial fibrillation necessitated close medication monitoring and precise dosage management. Recent symptoms include a resolved stiff neck, leading to curiosity about its connection to her thyroid condition. Past medication regimens involved diverse methimazole dosing, sometimes as high as 15 mg, reflecting the complexity in finding a therapeutic balance. Notably, skin reactions occurred with a generic thimazole version, suggesting sensitivity to medication formulations. She maintains vigilance over dietary iodine due to possible exacerbation of thyroid issues and is informed about ongoing clinical trials on alternative treatments for thyroid antibodies, which may influence her future management if current therapies continue to pose complications due to her sensitivity to medication doses. We will follow up at [facility] Medical History Gilbert syndrome Hyperthyroidism A-fib Hx of skin cancer, basal cell Dyslipidemia HTN (hypertension), benign Surgical History No pertinent past surgical history Family History Mother Breast cancer Social History Housing: House Alcohol intake: current Patient Tobacco Use Status: Never used Tobacco e-Cigarette/Vaping Use: Never Used Second Hand Smoke Exposure: Yes Substance Use Type: Marijuana service: No Current occupational status: unemployed Cognitive needs: No Hearing needs: No Vision needs: Yes Physical Exam Vital Signs: Last Vital Signs Pulse 65 03/26/25 14:05 BP 150/92 H 03/26/25 14:05 Pulse Ox 98 03/26/25 14:05 Oxygen Delivery Method Room Air 03/26/25 14:05 BMI result Body Mass Index 27.6 Const Other: There is proptosis of the righteye greater than left. Thyroid gland is nl size weighs about 15 g . There are no thyroid nodules palpated Assessment & Plan Assessment & Plan (1) Hyperthyroidism: Code(s): E05.90 - Thyrotoxicosis, unspecified without thyrotoxic crisis or storm Category: Medical Plan: Is a 59-year-old white female with a history of Graves disease and hyperth yroidism very sensitive to anti-thyroid medication. She is currently on 2.5 mg mg of methimazole . She appears to be clinically euthyroid but TSH is slightly elevated Plan is to recheck thyroid function studies along with TRAB antibodies . If TSH remains elevated, decrease the methimazole to 1.25 mg q.d. or 2.5 mg every other day. If antibodies are negative, could stop the anti-thyroid medication We will discuss definitive therapy with patient which would include possible thyroidectomy. Would avoid radioactive iodine in this patient with TADEO 1. Graves' Disease The patient presents with symptomatology consistent with fluctuating thyroid levels and management challenges due to variable responses to methimazole dosing. Methimazole dosing will remain unchanged until further laboratory results delineate the precise therapeutic approach. She has presented a complex case with past incidences of atrial fibrillation necessitating periodic vigilance over heart rhythm. 2. Thyroid Eye Disease Visual complaints were considered, correlating with thyroid status, thus ocular involvement will be monitored along with thyroid status. Raising awareness about new antibody modulation treatments offers future pathways if symptom management remains challenging. She will follow up in [facility] Dr. Lomax in the next couple of months During the consultation, I discussed the ongoing titration challenges with methimazole given the patient's sensitivity to dosage changes. The need for careful monitoring of her thyroid function was emphasized, with considerations for potential adjustments based on upcoming antibody test results. We reviewed the novel therapeutic approaches for Graves' disease under investigation locally, particularly beneficial in modulating antibody activity. The risks and benefits of ongoing methimazole and potential alternatives were detailed. Furthermore, I advised reevaluation of her lens solution for ocular comfort while managing Thyroid Eye Disease. Follow-up arrangements were discussed to reassess thyroid functionality and possible involvement in clinical trials as management evolves. - Continue taking methimazole 2.5 mg daily as prescribed. - Monitor symptoms of fatigue and report any exacerbation. - Reduce intake of iodine-rich foods and maintain a balanced diet. - Follow up with arranged diagnostic testing as soon as possible. - Attend follow-up appointments for assessment of thyroid function and medication review. - Report any new or worsening symptoms immediately. The patient had an opportunity to ask questions regarding treatment plan. The patient expressed understanding and agreement with the above treatment plan. Patient was informed and verbally consented to the use of an ambient scribe for clinic note documentation during this visit. Orders: Orders Thyrotropin Receptor Antibody 03/24/25 E05.90 - Thyrotoxicosis, unspecified without thyrotoxic crisis or storm Free T4 (Free Thyroxine) Today E05.90 - Thyrotoxicosis, unspecified without thyrotoxic crisis or storm Thyroid Stimulating Hormone Today E05.90 - Thyrotoxicosis, unspecified without thyrotoxic crisis or storm Triiodothyronine T3 Free Today E05.90 - Thyrotoxicosis, unspecified without thyrotoxic crisis or storm Coding Level of Care Code Est Pt Level 3 (46541) Diagnoses Hyperthyroidism E05.90
== END 2025-03-26 14:34 | disposition home or self-care (01) ==
LOC: HO.ENCR 14:04
PROVIDERS: PCP Physician Assistant; Visit Provider Internal Medicine Endocrinology, Diabetes & Metabolism
DX: E05.90 Thyrotoxicosis, unspecified without thyrotoxic crisis or storm (principal)
CPT/HCPCS: 99213

== ENCOUNTER → 2025-03-26 14:03 | Outpatient (BNVA) | payer OTHER, SELFPAY | PROVIDERS: PCP Physician Assistant; Visit Provider Internal Medicine Endocrinology, Diabetes & Metabolism | DX: E05.90 Thyrotoxicosis, unspecified without thyrotoxic crisis or storm (principal) | CPT/HCPCS: 99212 ==

== ENCOUNTER 2025-03-28 09:08 | Outpatient (REF) | payer OTHER, SELFPAY ==
[2025-03-28 09:59] LABS: Free T4 (Free Thyroxine) 0.82 ng/dL (0.71-1.85); Thyroid Stimulating Hormone 6.72 uIU/mL (0.32-4.0)
[2025-03-30 07:39] LABS: Triiodothyronine T3 Free 3.1 pg/mL (2.3-4.2)
[2025-04-01 18:48] LABS: Thyrotropin Receptor Antibody 10.96 IU/L (<=2.00)
== END 2025-03-28 09:09 | disposition home or self-care (01) ==
LOC: HO.LAB 09:08
PROVIDERS: PCP Physician Assistant; Visit Provider Internal Medicine Endocrinology, Diabetes & Metabolism
DX: E05.90 Thyrotoxicosis, unspecified without thyrotoxic crisis or storm (principal)
CPT/HCPCS: 36415; 83520; 84439; 84443; 84481

== ENCOUNTER 2025-04-22 08:30 | Outpatient (AMB) | payer OTHER, SELFPAY ==
--- NOTE | 2025-04-22 08:32 | A.OFFPC_ITS ---
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 CV: Blood pressure today in the office is 128/84. She is currently on metoprolol 37.5 mg daily. Tolerating this well. Recently saw Cardiology and states that she was taken off of Eliquis. No signs of AFib following better control for thyroid. -She has stopped drinking and wants to r educe her cholesterol with diet. Endo: On methimazole for her hyperthyroidism. Following closely with Dr. Myles. 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 Mammo: UTD, due this month 05/13 (booked) Colonoscopy: Scheduled this summer Bone density: UTD 2023, osteopenia [facility] Medical History (Updated 04/22/25 @ 08:52 by Alecia Christiansen PA-C) Gilbert syndrome Hyperthyroidism A-fib Hx of skin cancer, basal cell Dyslipidemia HTN (hypertension), benign Surgical History No pertinent past surgical history Family History Mother Breast cancer Social History Housing: House Alcohol intake: current Patient Tobacco Use Status: Current everyday Tobacco user Cigarettes Per Day: 2 Years Smoked: 10 e-Cigarette/Vaping Use: Never Used Second Hand Smoke Exposure: Yes Substance Use Type: Marijuana service: No Current occupational status: unemployed Cognitive needs: No Hearing needs: No Vision needs: Yes Questionnaire PHQ-9 Over the last 2 weeks, how often have you been bothered by any of the following problems? 1. Little interest or pleasure in doing things: not at all 2. Feeling down, depressed, or hopeless: not at all 3. Trouble falling or staying asleep, or sleeping too much: not at all 4. Feeling tired or having little energy: not at all 5. Poor appetite or overeating: not at all 6. Feeling bad about yourself - or that you are a failure or have let yourself or your family down: not at all 7. Trouble concentrating on things, such as reading the newspaper or watching television: not at all 8. Moving or speaking so slowly that other people could have noticed. Or the opposite - being so fidgety or restless that you have been moving around a lot more than usual: not at all 9. Thoughts that you would be better off or of hurting yourself in some way: not at all Total score: 0 Depression Screening Interpretation: Negative Depression Screening Done: Yes 62962 - PHQ-9 Billing: Yes Source: Developed by Drs. Cosme Cullen, Josefa Vedre, Ronnell Alaniz and colleagues, with an educational kian from [employer]. Thrive Questionnaire Date Thrive assessed: 04/22/25 I am a: Patient What is your living situation today?: I have a steady place to live Within the past 12 months, did the food you bought not last and you didn't have the money to get more?: Sometimes True Within the past 12 months, did you worry whether your food would run out before you got money to buy more?: Sometimes True Do you have trouble paying for medicines?: No Do you have trouble getting transportation to medical appointments?: No Do you have trouble paying your heating and electricity bill?: No Do you have trouble taking care of your child, family member or friend?: I choose not to answer this question THRIVE Score: 2 AUDIT C Alcohol Use Questionnaire (AUDIT-C) 1. How often do you have a drink containing alcohol?: 2-4 times a month (Once a week) 2. How many drinks containing alcohol do you have on a typical day when you are drinking?: 1 or 2 3. How often do you have six or more drinks on one occasion?: Never Total Score: 2 BECKY-7 AMB Questionnaire BECKY-7 Feeling nervous, anxious, or on edge: 0 = Not at all Not being able to stop or control worryin = Not at all Worrying too much about different things: 0 = Not at all Trouble relaxin = Not at all Being so restless that it is hard to sit still: 0 = Not at all Becoming easily annoyed or irritable: 0 = Not at all Feeling afraid as if something awful might happen: 0 = Not at all Total BECKY-7 score (0-4 normal; 5-9 mild; 10-14 moderate; 15-21 severe): 0 Source: Developed by Drs. Cosme Cullen, Josefa Verde, Ronnell Alainz and colleagues, with an educational kian from [employer]. BECKY-7 Assessment Billing BECKY-7 Assessment Tool: BECKY-7 Assessment 16718 Physical exam (Primary Care) Tobacco/Smoking Status: Tobacco use Status Tobacco use date assessed 07/17/24 08/13/24 08:44 Patient Tobacco Use Status Never used Tobacco 08/13/24 08:44 e-Cigarette/Vaping Use Never Used 08/13/24 08:44 Depression Screening Interpretation: Negative Thrive Assessment: Date of Thrive Assessment Date Thrive assessed 04/22/25 04/22/25 08:31 Const Orientation/consciousness: patient oriented x3 HENMT Ears: hearing grossly normal bilaterally Neck Thyroid: Thyroid normal Lymphatic: no lymphadenopathy noted Resp Auscultation: clear to auscultation bilaterally Cardio Rate: regular rate Rhythm: regular rhythm Heart sounds: S1 normal heart sound present and S2 normal heart sound present GI Inspection: Yes normal to inspection Palpation (GI): Soft to palpation and Other GI palpation findings present (nontender, no cva tenderness) Auscultation: normoactive bowel sounds Rectal Exam - Female: deferred Skin General skin exam: no rashes or lesions noted Neuro General: patient oriented x3, gait normal and no focal motor deficits Results Reviewed Results Reviewed: Laboratory Tests 08/13/24 03/24/25 03/28/25 10:33 09:07 09:14 Sodium 141 Potassium 4.0 Chloride 107 Carbon Dioxide 26 Anion Gap 12 BUN 17 H Creatinine 0.88 Estimated GFR > 60 Fasting Glucose 88 Calcium 8.8 Total Bilirubin 1.0 0.6 AST 21 37 H ALT 27 28 Alkaline Phosphatase 87 Total Protein 6.6 Albumin 3.9 Triglycerides 119 Cholesterol 160 LDL Cholesterol, Calc 89 HDL Cholesterol 48 TSH 8.80 H 6.72 H Free T4 0.82 Free T3 3.1 14 monitor * Total monitoring time 14 days. * Underlying rhythm is sinus with an average rate of 62/Min. About 42% of the time, rate < 60/Min. * Rare supraventricular ectopy with very brief runs. * Rare ventricular ectopy. * No significant pauses or high-grade AV blocks. * No patient markers or diary events. Echo Conclusions: - The left ventricular systolic function is normal. The calculated ejection fraction is 65% by biplane method. - No obvious valvular pathology seen on this study. Coding Level of Care Code Est Pt Level 4 (47947) Complex EM visit Add On G2211 Diagnoses Hyperthyroidism E05.90 HTN (hypertension), benign I10 Dyslipidemia E78.5 Additional Codes PHQ-9 - 58740 - PHQ-9 Billing: Yes ([id number]) BECKY-7 Assessment Billing - BECKY-7 Assessment Tool: BECKY-7 Assessment 19081 ([id number]) Assessment & Plan Assessment & Plan (1) Hyperthyroidism: Code(s): E05.90 - Thyrotoxicosis, unspecified without thyrotoxic crisis or storm Category: Medical Plan: Being managed by endocrinology. Currently on low-dose methimazole. (2) HTN (hypertension), benign: Code(s): I10 - Essential (primary) hypertension Category: Medical Plan: WNL, continue current plan (3) Dyslipidemia: Code(s): E78.5 - Hyperlipidemia, unspecified Category: Medical Plan: She was able to control this with diet. Patient Instructions: ?[address] [place] [address] [address], [place] [address] Phone:? Cardiology info- you were supposed to follow up in Dec 2024
[2025-04-22 08:36] VITALS: BP 128/84; PULSE 80; RESP 14; O2SAT 96; BMI 29.2
--- OUTSIDE RECORDS SUMMARY | 2025-04-22 08:41 | XMS_ITS | Clinical Summary ---
Author Organization [facility] ology [facility] Address [address] [place] [address] Phone Care Team Providers Care Parts Driver Name Role Phone Alecia Christiansen Primary Care Provider [phone] Encounters Date Type Department Care Team Description 04/08/2025 Telephone [facility] Cardiology [facility] - [address] [place] [address] Alecia Christiansen PA 04/03/2025 Telephone [facility] Cardiology [facility] - [address] [place] [address] Alecia Christiansen PA from Last 3 Months Social History Tobacco Use Types Packs/Day Years Used Date Smoking Tobacco: Never Assessed Comments Unknown Sex and Gender Information Value Date Recorded Sex Assigned at Not on file Legal Sex Female 11:41 AM EDT Gender Identity Not on file Sexual Orientation Not on file Plan of Treatment Health Maintenance Due Date Last Done Comments Breast Cancer Screening 1965 DTaP,Tdap,and Td Vaccines (1 - Tdap) 1984 Hepatitis B Vaccines (1 of 3 - 19+ 3-dose series) 1984 Cervical Cancer Screening: P ap Smear 1986 Pneumococcal Vaccine: 50+ Ye ars (1 of 1 - PCV) 2015 Zoster Vaccines (1 of 2) 2015 COVID-19 Vaccine (2023-2 5 season) 2024 Colorectal Cancer Screening: Colonoscopy 09/02/2024 Depression Screening 09/02/2024 HIV Screening 09/02/2024 Hepatitis C Screening 09/02/2024 Social Influencers of Health Screening 09/02/2024 Influenza Vaccine (Season Ended) 2025 RSV Immunization Adult Patie nts (1 - 1-dose 75+ series) 2040 HIB Vaccines Aged Out No longer eligi ble based on patient's age to complete this topic HPV Vaccines Aged Out No longer eligi ble based on patient's age to complete this topic Hepatitis A Vaccines Aged Out No long er eligible based on patient's age to complete this topic IPV Vaccines Aged Out No longer eligi ble based on patient's age to complete this topic MMR Vaccines Aged Out No longer eligi ble based on patient's age to complete this topic Meningococcal ACWY Vaccine Aged Out N o longer eligible based on patient's age to complete this topic Meningococcal B Vaccine Aged Out No l onger eligible based on patient's age to complete this topic Pneumococcal Vaccine: Pediat rics (0 to 5 Years) and At-Risk Patients (6 to 64 Years) Aged Out No longer eligible b ased on patient's age to complete this topic RSV Immunization Patients Un juve 20 months Aged Out No longer eligible b ased on patient's age to complete this topic Varicella Vaccines Aged Out No longer eligible based on patient's age to complete this topic Insurance MEDICAID - [place] Care Teams Parts Driver Relationship Specialty Start Date End Date Alecia Christiansen PA [address] [place] [address] PCP - General 06/13/24
== END 2025-04-22 08:54 | disposition home or self-care (01) ==
LOC: HO.HMCFM 08:31
PROVIDERS: PCP Physician Assistant; Visit Provider Physician Assistant
DX: E05.90 Thyrotoxicosis, unspecified without thyrotoxic crisis or storm (principal); I10 Essential (primary) hypertension; E78.5 Hyperlipidemia, unspecified

== ENCOUNTER → 2025-04-22 08:30 | Outpatient (BNVA) | payer OTHER, SELFPAY | PROVIDERS: PCP Physician Assistant; Visit Provider Physician Assistant | DX: I10 Essential (primary) hypertension (principal); E05.90 Thyrotoxicosis, unspecified without thyrotoxic crisis or storm; E78.5 Hyperlipidemia, unspecified | CPT/HCPCS: 96127; 99212 ==

== ENCOUNTER 2025-06-17 12:51 | Outpatient (AMB) | payer OTHER, SELFPAY ==
--- NOTE | 2025-06-17 12:54 | MHC.PC.OV ---
Vital Signs 06/17/25 13:00 Height 5 ft 2 in Weight 163 lb BMI 29.8 BP 126/74 Blood Pressure Location Lt brachial Position Sitting Respiration 14 Pulse 80 Pulse Source Pulse Oximeter Temp 99.0 F Temp Source Oral Pulse Oximetry (%) 98 Oxygen Delivery Method Room Air Intake Visit Reasons: Cardiology referral Intake Note: Requesting referral to external grinder. [employer] Brakes Required: No Allergies No Known Allergies Allergy (Verified 06/17/25 12:57) Medication List - Last Reconciled 06/17/25 by Alecia Christiansen PA-C latanoprost 0.005% 1 drp ophthalmic (eye) QPM methimazole 1.25 mg (1/4 x 5 mg) PO DAILY metoprolol succinate ER 37.5 mg (1.5 x 25 mg) PO DAILY 90 days Tobacco use date assessed: 06/17/25 Dental Screening Dental Screen Date: 04/22/25 HPI Cardiology referral HPI Details Patient is a 60 year-old female who presents today for a follow up. CV: Blood pressure today in the office is 126/74. She is currently on metoprolol 37.5 mg daily. Tolerating this well. Recently saw Cardiology and states that she was taken off of Eliquis. No signs of AFib following better control for thyroid. She states that a couple weeks though she had a bout of palpitations on and off for a few days during the heat wave. She did not have any water that day and thinks they were probably normal and not afib but she wants to see EP for a consult. -She has stopped drinking and wants to reduce her cholesterol with diet. Endo: On methimazole for her hyperthyroidism. Following closely with Dr. Myles. Following with ophthalmology Derm: Booked to see Dr. Mcnair Certified Court/Medical Interpreter: UTD 10/12 Mammo: UTD, due this month 05/13 (booked) Colonoscopy: Scheduled this summer Bone density: UTD 2023, osteopenia [facility] Medical History (Updated 06/17/25 @ 13:12 by Alecia Christiansen PA-C) Gilbert syndrome Hyperthyroidism A-fib Hx of skin cancer, basal cell Dyslipidemia HTN (hypertension), benign Surgical History No pertinent past surgical history Family History Mother Breast cancer Social History Housing: House Alcohol intake: current Patient Tobacco Use Status: Current everyday Tobacco user Cigarettes Per Day: 1 Years Smoked: 10 e-Cigarette/Vaping Use: Never Used Second Hand Smoke Exposure: Yes Substance Use Type: Marijuana service: No Current occupational status: unemployed Cognitive needs: No Hearing needs: No Vision needs: Yes Questionnaire Thrive Questionnaire Date Thrive assessed: 04/22/25 I am a: Patient What is your living situation today?: I have a steady place to live Within the past 12 months, did the food you bought not last and you didn't have the money to get more?: Sometimes True Within the past 12 months, did you worry whether your food would run out before you got money to buy more?: Sometimes True Do you have trouble paying for medicines?: No Do you have trouble getting transportation to medical appointments?: No Do you have trouble paying your heating and electricity bill?: No Do you have trouble taking care of your child, family member or friend?: I choose not to answer this question THRIVE Score: 2 AUDIT C Alcohol Use Questionnaire (AUDIT-C) 1. How often do you have a drink containing alcohol?: 2-3 times a week 2. How many drinks containing alcohol do you have on a typical day when you are drinking?: 1 or 2 3. How often do you have six or more drinks on one occasion?: Never Total Score: 3 Physical exam (Primary Care) Vital Signs: Last Vital Signs Temp 99.0 F 06/17/25 13:00 Pulse 80 06/17/25 13:00 Resp 14 06/17/25 13:00 BP 126/74 06/17/25 13:00 Pulse Ox 98 06/17/25 13:00 Oxygen Delivery Method Room Air 06/17/25 13:00 BMI result Body Mass Index 29.8 Tobacco/Smoking Status: Tobacco use Status Tobacco use date assessed 06/17/25 06/17/25 13:04 Patient Tobacco Use Status Current everyday Tobacco 06/17/25 13:04 e-Cigarette/Vaping Use Never Used 06/17/25 13:04 Thrive Assessment: Date of Thrive Assessment Date Thrive assessed 04/22/25 06/17/25 13:04 Const Orientation/consciousness: patient oriented x3 HENMT Ears: hearing grossly normal bilaterally Neck Thyroid: Thyroid normal Lymphatic: no lymphadenopathy noted Resp Auscultation: clear to auscultation bilaterally Cardio Rate: regular rate Rhythm: regular rhythm Heart sounds: S1 normal heart sound present and S2 normal heart sound present GI Inspection: Yes normal to inspection Palpation (GI): Soft to palpation and Other GI palpation findings present (nontender, no cva tenderness) Auscultation: normoactive bowel sounds Rectal Exam - Female: deferred Skin General skin exam: no rashes or lesions noted Neuro General: patient oriented x3, gait normal and no focal motor deficits Coding Level of Care Code Est Pt Level 4 (07509) Complex EM visit Add On G2211 Diagnoses HTN (hypertension), benign I10 Palpitations R00.2 Hyperthyroidism E05.90 Elevated LFTs R79.89 Assessment & Plan Assessment & Plan (1) HTN (hypertension), benign: Code(s): I10 - Essential (primary) hypertension Category: Medical Plan: WNL. Continue current regimen (2) Palpitations: Code(s): R00.2 - Palpitations Category: Medical Plan: Reviewed recent Holter monitor. Referral to EP (3) Hyperthyroidism: Code(s): E05.90 - Thyrotoxicosis, unspecified without thyrotoxic crisis or storm Category: Medical Plan: Following with Endocrine (4) Elevated LFTs: Code(s): R79.89 - Other specified abnormal findings of blood chemistry Category: Medical Plan: We will monitor Plan Cologuard ordered Orders: Orders Complete Blood Count Auto Diff Today E05.90 - Thyrotoxicosis, unspecified without thyrotoxic crisis or storm, I10 - Essential (primary) hypertension, R00.2 - Palpitations, R79.89 - Other specified abnormal findings of blood chemistry Comprehensive Met. Panel Today E05.90 - Thyrotoxicosis, unspecified without thyrotoxic crisis or storm, I10 - Essential (primary) hypertension, R00.2 - Palpitations, R79.89 - Other specified abnormal findings of blood chemistry Referrals Cardiac Electrophysiology Referral R00.2 - Palpitations, Z86.79 - Personal history of other diseases of the circulatory system Cologuard Test E05.90 - Thyrotoxicosis, unspecified without thyrotoxic crisis or storm, I10 - Essential (primary) hypertension, R00.2 - Palpitations, R79.89 - Other specified abnormal findings of blood chemistry, Z12.11 - Encounter for screening for malignant neoplasm of colon Medications: Refilled metoprolol succinate ER 37.5 mg (1.5 x 25 mg) PO DAILY 135 tabs 2RF 90 days Patient Instructions: Dr. Mcnair (dermatology) [phone] labs ordered for today no med changes cologuard ordered- will go to you by mail
[2025-06-17 13:00] VITALS: BP 126/74; PULSE 80; RESP 14; TEMP 37.2; O2SAT 98; BMI 29.8
--- OUTSIDE RECORDS SUMMARY | 2025-06-17 13:24 | XMS_ITS | Encounter Summary ---
Author Organization [facility] Address [address] [place] [address] Phone Care Team Providers Care Audiology Assistant Name Role Phone Alecia Christiansen Primary Care Provider [phone]- [phone] Encounter Details Date Type Department Care Team (Late st Contact Info) Description 09/08/2024 Procedure Pass [facility] - [facility] Main [place] [address] [place] [address] Social History Tobacco Use Types Packs/Day Years Used Date Smoking Tobacco: Every Day Cigars Smokeless Tobacco: Never Comments:Smokes marijuana Education Answer Date Recorded Are you interested in more education? Not on lynnette e 05/06/2024 Are you concerned about learning? Not on file 05/06/2024 No 05/06/2024 No 05/06/2024 Digital Access Answer Date Recorded No 05/06/2024 No 05/06/2024 Reliable internet access at home? Not on file 05/06/2024 Device with a working camera? Not on file Comments Unknown Sex and Gender Information Value Date Recorded Sex Assigned at Female 07/22/2024 11:59 AM EDT Legal Sex Female 10:01 AM EDT Gender Identity Female 07/22/2024 11:59 AM EDT Sexual Orientation Choose not to disclose 2023 11:59 AM EDT documented as of this encounter Plan of Treatment Upcoming Encounters Date Type Department Care Team (Late st Contact Info) Description 10/05/2025 10:10 AM EST Office Visit [facility] [address] [place] [address] Yenny Lomax MD [address] [place] [address] [email or web address] documented as of this encounter Visit Diagnoses Not on filedocumented in this encounter Care Teams Audiology Assistant Relationship Specialty Start Date End Date Alecia Christiansen PA PCP - General Physician Firebrick Layer 07/22/24 documented as of this encounter Additional Source Comments The information contained in this document represents components of the legal health record. It is not the complete legal health record.[facility]
== END 2025-06-17 13:22 | disposition home or self-care (01) ==
LOC: HO.HMCFM 12:51
PROVIDERS: PCP Physician Assistant; Visit Provider Physician Assistant
DX: I10 Essential (primary) hypertension (principal); R00.2 Palpitations; E05.90 Thyrotoxicosis, unspecified without thyrotoxic crisis or storm; R79.89 Other specified abnormal findings of blood chemistry

== ENCOUNTER → 2025-06-17 12:51 | Outpatient (BNVA) | payer OTHER, SELFPAY | PROVIDERS: PCP Physician Assistant; Visit Provider Physician Assistant | DX: I10 Essential (primary) hypertension (principal); R00.2 Palpitations; E05.90 Thyrotoxicosis, unspecified without thyrotoxic crisis or storm; R79.89 Other specified abnormal findings of blood chemistry | CPT/HCPCS: 99212 ==

== ENCOUNTER 2025-06-30 07:36 | Outpatient (REF) | payer OTHER, SELFPAY ==
[2025-06-30 11:14] LABS: MANUAL DIFF FLAG NO
[2025-06-30 11:29] LABS: Hematocrit 45.9 % (37.0-47.0); Hemoglobin 15.5 g/dl (12.0-16.0); Imm Gran Abs Auto 0.02 X10*3/uL (0.00-0.03); Imm Gran Pct Auto 0.3 % (0.0-0.4); Lymphocytes Absolute Auto 2.9 X10*3/uL (1.2-4.9); Mean Corpuscular HGB Conc 33.8 g/dl (31.0-35.0); Mean Corpuscular Hemoglobin 31.3 pg (27.0-33.0); Mean Corpuscular Volume 92.7 fL (80.0-98.0); NRBC Abs Auto 0.000 X10*3/uL (0.0-0.012); NRBC Pct Auto 0.0 /100WBC (0.0-0.2); Platelet Count 276 X10*3/uL (160-400); Red Blood Count 4.95 X10*6/uL (4.20-5.50); White Blood Count 7.2 X10*3/uL (4.8-10.8)
[2025-06-30 12:48] LABS: Alanine Aminotransferase 39 U/L (0-31); Albumin Level 4.5 g/dL (3.5-5.0); Alkaline Phosphatase 73 U/L (39-117); Anion Gap 14 (12-20); Aspartate Amino Transferase 27 U/L (5-31); Blood Urea Nitrogen 19 mg/dL (9-16); Calcium 9.2 mg/dL (8.4-10.2); Carbon Dioxide 24 mmol/L (22-29); Chloride 107 mmol/L (96-108); Estimated Glomerular Filt Rate 53; Potassium 4.1 mmol/L (3.3-5.1); Sodium 141 mmol/L (135-145); Total Protein 7.0 g/dL (6.5-8.0)
[2025-06-30 13:10] LABS: Free T4 (Free Thyroxine) 1.01 ng/dL (0.71-1.85); Thyroid Stimulating Hormone 1.90 uIU/mL (0.32-4.0)
== END 2025-06-30 07:37 | disposition home or self-care (01) ==
LOC: HO.WFDLDS 07:36
PROVIDERS: Referring Provider Internal Medicine Endocrinology, Diabetes & Metabolism; Visit Provider Physician Assistant
DX: I10 Essential (primary) hypertension (principal); E05.90 Thyrotoxicosis, unspecified without thyrotoxic crisis or storm; R00.2 Palpitations; R79.89 Other specified abnormal findings of blood chemistry
CPT/HCPCS: 36415; 80053; 84439; 84443; 84481; 85025

== ENCOUNTER 2025-07-24 14:53 | Outpatient (AMB) | payer OTHER, SELFPAY ==
--- OUTSIDE RECORDS SUMMARY | 2025-07-24 14:57 | XMS_ITS | Clinical Summary ---
Author Organization [facility] Address [address] [place] [address] Phone Care Team Providers Care Procedures Tech Name Role Phone Alecia Christiansen Primary Care Provider +1- [phone] Allergies No known active allergies Medications ELIQUIS 5 mg tablet Take 1 tablet by mouth 2 (two) times a day. 4 Active methIMAzole (TAPAZOLE) 5 MG tablet 4 Active metoprolol succinate (TOPROL-XL) 25 MG 24 hr tablet 4 Active triamcinolone acetonide 0.025 % cream APPLY TOPICALLY 2 TIMES A DAY FOR 14 DAYS 4 Active latanoprost (XALATAN) 0.005 % ophthalmic solution Place 1 drop into each eye nightly at bedtime. 2.5 mL 12 5 Active Active Problems No known active problems Social History Tobacco Use Types Packs/Day Years Used Date Smoking Tobacco: Every Day Cigars Smokeless Tobacco: Never Tobacco Cessation:Ready to Q uit: Not Asked; Counseling Given: Not Answered Comments:Smokes marijuana Education Answer Date Recorded Are [...] not to disclose 2023 11:59 AM EDT Plan of Treatment Upcoming Encounters Date Type Department Care Team (Late st Contact Info) Description 10/05/2025 10:10 AM EST Office Visit [facility] [place] [address] [place] [address] Yenny Lomax MD [address] [place] [id number] [email or web address] 10/26/2025 2:15 PM EST Office Visit [facility] [address] [facility] 10th [place] [address] Noe Love MD [address] [place] [address] [email or web address] Health Maintenance Due Date Last Done Comments Adult Td,Tdap Booster 1965 CREATININE LEVEL 1965 LIPID PANEL 1965 DEPRESSION SCREENING 1977 HEPATITIS C SCREENING 1983 HIV ONE-TIME SCREENING (18-6 5 YEARS) 1983 PNEUMOCOCCAL VACCINES (50+ y ears) (1 of 2 - PCV) 1984 PAP SMEAR 1986 MAMMOGRAM 2005 COLOGUARD 2010 COLONOSCOPY 2010 COLORECTAL CANCER SCREENING 2010 FIT TEST 2010 FOBT 2010 SIGMOIDOSCOPY 2010 VIRTUAL COLONOSCOPY 2010 ZOSTER VACCINES (1 of 2) 2015 COVID-19 VACCINE ( - 2023-2 5 season) 2024 SMOKING Hx and SMOKELESS TOB ACCO SCREENING 03/30/2026 03/30/2025 RSV VACCINE (1 - 1-dose 75+ series) 2040 HEPATITIS A VACCINES Aged Out No long er eligible based on patient's age to complete this topic HIB VACCINES Aged Out No longer eligi ble based on patient's age to complete this topic MENINGOCOCCAL VACCINES (ACWY) Aged Out No longer eligible based on patient's age to complete this topic MENINGOCOCCAL VACCINES (B) Aged Out N o longer eligible based on patient's age to complete this topic Medical Devices Not on [place] [address] [place] [address] [facility] [place] [address] [place] [address] [facility] [place] [address] [place] [address] [facility] Care Teams Procedures Tech Relationship Specialty Start Date End Date Alecia Christiansen PA PCP - General Physician Cloth Bleaching Range Back Tender 07/22/24 Additional Source Comments The information contained in this document represents components of the legal health record. It is not the complete legal health record.[facility]
--- OUTSIDE RECORDS SUMMARY | 2025-07-24 14:57 | XMS_ITS | Clinical Summary ---
Author Organization [facility] Address [address] [place] [address] Phone Care Team Providers Care Ship Runner Name Role Phone Alecia Christiansen Primary Care Provider Encounters Date Type Department Care Team Description 06/30/[address] [place] [address] Alecia Christiansen PA 06/23/[address] [place] [address] Alecia Christiansen PA 05/25/2025 Telephone [facility] [address] [place] [phone] Alecia Christiansen PA 05/21/[address] [place] [phone] Alecia Christiansen PA 04/23/2025 Telephone [facility] [address] [place] [phone] Alecia Christiansen PA from Last 3 Months Social History Tobacco Use Types Packs/Day Years Used Date Smoking Tobacco: Never Assessed Comments Unknown Sex and Gender Information Value Date Recorded Sex Assigned at Not on file Legal Sex Female 11:41 AM EDT Gender Identity Not on file Sexual Orientation Not on file Plan of Treatment Upcoming Encounters Date Type Department Care Team (Late st Contact Info) Description 09/21/2025 10:25 AM EST Office Visit [facility] [address] [place] [phone] Deuce Garcia MD [address] [place] [address] [place] [address] Health Maintenance Due Date Last Done Comments Breast Cancer Screening 1965 DTaP,Tdap,and Td Vaccines (1 - Tdap) 1984 Cervical Cancer Screening: P ap Smear 1986 Pneumococcal Vaccine: 50+ Ye ars (1 of 1 - PCV) 2015 Zoster Vaccines (1 of 2) 2015 Cholesterol Screening (Lipid Panel) 09/02/2024 Colorectal Cancer Screening: Colonoscopy 09/02/2024 HIV Screening 09/02/2024 Hepatitis C Screening 09/02/2024 Social Influencers of Health Screening 09/02/2024 Depression Screening 11/19/2024 Hypertension/CHF/CAD Annual BMP Blood Test 07/01/2025 COVID-19 Vaccine ( - 2023-2 5 season) 2025 Influenza Vaccine (#1) 2025 RSV Immunization Adult Patie nts (1 - 1-dose 75+ series) 2040 HIB Vaccines Aged Out No longer eligi ble based on patient's age to complete this topic HPV Vaccines Aged Out No longer eligi ble based on patient's age to complete this topic Hepatitis A Vaccines Aged Out No long er eligible based on patient's age to complete this topic Hepatitis B Vaccines Aged Out No long er eligible [...] to complete this topic Insurance MEDICAID - [place] Care Teams Ship Runner Relationship Specialty Start Date End Date Alecia Christiansen PA [address] [place] [id number] PCP - General 06/13/24
--- OUTSIDE RECORDS SUMMARY | 2025-07-24 14:57 | XMS_ITS | Encounter Summary ---
Author Organization [facility] Address [address] [facility] [address] [facility] [address] [place] [address] Phone Care Team Providers Care Die Assembler Name Role Phone Alecia Christiansen Primary Care Provider [phone]- [phone] Encounter Details Date Type Department Care Team (Late st Contact Info) Description 09/08/2024 Procedure Pass [facility] - CT Main [place] [address] [place] [address] Social History Tobacco Use Types Packs/Day Years [...] AM EST Office Visit [facility] [address] [place] [address] Yenny Lomax MD [address] [place] [address] [email or web address] 10/26/2025 2:15 PM EST Office Visit [facility] [address] [facility] [address] [place] [address] Noe Love MD [address] [place] [address] [email or web address] documented as of this encounter Visit Diagnoses Not on filedocumented in this encounter Care Teams Die Assembler Relationship Specialty Start Date End Date Alecia Christiansen PA PCP - General Physician Building Maintenance Technician 07/22/24 documented as of this encounter Additional Source Comments The information contained in this document represents components of the legal health record. It is not the complete legal health record.[facility]
--- OUTSIDE RECORDS SUMMARY | 2025-07-24 14:57 | XMS_ITS | Encounter Summary ---
Author Organization [facility] Address [address] [place] [address] Care Team Providers Care Hoop Flaring Machine Operator Helper Name Role Phone Alecia Christiansen Primary Care Provider [phone] Reason for Visit * Reason Onset Date Comments Appointment 06/30/2025 Encounter Details Date Type Department Care Team (Late st Contact Info) Description 06/30/2025 Telephone [facility] [address] [place] [address] [place] [address] [place] [address] Alecia Christiansen PA [address] [place] [address] Social History Tobacco Use Types Packs/Day Years Used Date Smoking Tobacco: Never Assessed Comments Unknown Sex and Gender Information Value Date Recorded Sex Assigned at Not on file Legal Sex Female 11:41 AM EDT Gender Identity Not on file Sexual Orientation Not on file documented as of this encounter Progress Notes * Karen Coyle - 06/30/2025 2:15 PM EDT Patient calling to schedule new patient appointment best call back number is [phone] documented in this encounter Plan of Treatment Upcoming Encounters Date Type Department Care Team (Late st Contact Info) Description 09/21/2025 10:25 AM EST Office Visit [facility] [address] [place] [phone] Deuce Garcia MD [address] [place] [address] [place] [address] [place] [address] documented as of this encounter Visit Diagnoses Not on filedocumented in this encounter Care Teams Hoop Flaring Machine Operator Helper Relationship Specialty Start Date End Date Alecia Christiansen PA [address] [place] [address] PCP - General 06/13/24 documented as of this encounter
[2025-07-24 15:13] VITALS: BP 110/60; PULSE 74; BMI 29.3
--- NOTE | 2025-07-24 15:13 | A.OFFVIS_ITS ---
Vital Signs 07/24/25 15:13 Height 5 ft 2 in Weight 160 lb BMI 29.3 BP 110/60 Blood Pressure Location Lt brachial Position Sitting Pulse 74 Pulse Source Monitor Intake Visit Reasons: 1 year follow up afib? dr luther pt Allergies No Known Allergies Allergy (Verified 06/17/25 12:57) Medication List - Last Reconciled 07/24/25 by Samir Good NP latanoprost 0.005% 1 drp ophthalmic (eye) QPM methimazole 1.25 mg (1/4 x 5 mg) PO DAILY metoprolol succinate ER 37.5 mg (1.5 x 25 mg) PO DAILY 90 days HPI Comments Details: This is a 60-year-old female patient coming in for concerns about AFib. Patient with a history of AFib in the setting of newly diagnosed hypothyroidism in January of 2024. Patient was on Eliquis and metoprolol at that time but since there has been no recurrence, patient came off the anticoagulation and continued on her metoprolol therapy. Today, patient reports that for the past month, patient has been having some episodes of atrial fibrillation as shown by her watch with palpitations. Patient today brings in a strip that does show AFib with a heart rate in the 110s. Patient correlates this to some questions of mold in an apartment that she was staying next to her house. Patient is otherwise denying any exertional chest pain, shortness of breath, dizziness, orthopnea, PND, leg edema, presyncope or syncope. Patient is reporting compliance with her metoprolol therapy. Patient is otherwise reporting that her thyroid levels is within normal limits. [facility] Medical History A-fib Gilbert syndrome Hyperthyroidism Hx of skin cancer, basal cell Dyslipidemia HTN (hypertension), benign Surgical History No pertinent past surgical history Family History Mother Breast cancer Social History Housing: House Alcohol intake: current Patient Tobacco Use Status: Current everyday Tobacco user Cigarettes Per Day: 1 Years Smoked: 10 e-Cigarette/Vaping Use: Never Used Second Hand Smoke Exposure: Yes Substance Use Type: Marijuana service: No Current occupational status: unemployed Cognitive needs: No Hearing needs: No Vision needs: Yes Review of Systems Const Denies weakness ENT Denies dizziness Card Denies chest pain, Denies chest pain with activity, Denies syncope, Denies rapid heart rate, Denies pedal edema, Denies edema, Denies leg edema, Denies lightheadedness, Reports palpitations, Reports dyspnea, Reports dyspnea on exertion and Denies orthopnea Resp Denies cough, Reports dyspnea and Reports dyspnea on exertion GI Denies hematochezia and Denies change in stool character Musc Denies abnormal gait, Denies muscle cramps, Denies muscle weakness, Denies numbness, Denies radiating pain into limb and Denies tingling Neuro Denies abnormal gait, Denies dizziness, Denies syncope, Denies numbness, Denies tingling and Denies weakness Endo Reports palpitations Physical Exam Vital Signs: Last Vital Signs Pulse 74 07/24/25 15:13 BP 110/60 07/24/25 15:13 BMI result Body Mass Index 29.3 Const General: cooperative, healthy appearing, comfortable and no acute distress Orientation/consciousness: patient oriented x3 HEENT Head: Yes normal to inspection Eyes Other: Bilateral exophthalmos Neck Neck: Yes normal visual inspection, Yes trachea midline and Yes supple Chest Chest palpation & inspection: normal inspection of the chest Resp Effort & Inspection: normal respiratory effort Auscultation: clear to auscultation bilaterally, no crackles, no rales, no rhonchi and no wheezes Cardio Jugular venous distension: no JVD Palpation: normal PMI Rate: regular rate Rhythm: regular rhythm Heart sounds: S1 normal heart sound present, S2 normal heart sound present, no click, no gallops, no murmurs and no rubs Peripheral pulses: Peripheral pulses 2+ throughout GI Inspection: Yes normal to inspection Palpation (GI): Soft to palpation Auscultation: normal bowel sounds Skin General skin exam: no rashes or lesions noted Neuro General: patient oriented x3 Extrem General: Yes normal to inspection, No no pedal edema and No calf tenderness Psych Appearance: grossly normal Mental Status: mental status grossly normal Speech and movement: Normal speech and movement present Office Procedures EKG Details: EKG today showed normal sinus rhythm, rate 74 beats per minute, [place], [place] [id number], Complete Assessment & Plan Assessment & Plan (1) Palpitations: Code(s): R00.2 - Palpitations Category: Medical Plan: EKG today is normal rhythm however patient does bring in his strip that she printed out from her watch showing AFib with a heart rate in the 110. Patient is reporting compliance with her metoprolol for rate control approach. Patient with a CHADS-VASc score of greater than 2 and therefore recommended starting her Eliquis. However, patient is hesitant on this and states that she will start when she has a another episode of AFib on her watch. We will also do a cardiac event monitor to confirm her AFib as well as check her burden and the rate. We may need to increase metoprolol dose in case of elevated heart rates when in AFib. Discussed in detail about risk for stroke with AFib without anticoagulation. Patient verbalizes understanding. (2) A-fib: Code(s): I48.91 - Unspecified atrial fibrillation Category: Medical Qualifiers: Atrial fibrillation type: paroxysmal Qualified Code(s): I48.0 - Paroxysmal atrial fibrillation Plan: As above. Advised heart healthy diet, regular exercise, avoiding caffeinated beverages, stress medication strategies, and med compliance. Follow up after cardiac event monitor. In the interim, patient will call the office with any concerns or change in symptoms. This note was generated using voice recognition software. While every effort has been made to ensure accuracy and proper director digital catalogue, there may be occasional errors that could affect the content or meaning of the described symptoms. Orders: Orders ECG 30 day event monitor Today I48.0 - Paroxysmal atrial fibrillation, R00.2 - Palpitations AMB EKG-In Office Today I48.0 - Paroxysmal atrial fibrillation Medications: New apixaban 5 mg PO BID 90 tabs 3RF Coding Level of Care Code Est Pt Level 4 (46925) Complex EM visit Add On G2211 Diagnoses Palpitations R00.2 Paroxysmal atrial fibrillation I48.0 Atrial fibrillation type: paroxysmal CPT Codes EKG - CPT: 91884-[id number], Complete ([id number]) Time Spent (min) 32 Comment Time spent in reviewing the chart, test results, assessment, counseling and documentation.
== END 2025-07-24 16:06 | disposition home or self-care (01) ==
LOC: HO.HCS 14:53
PROVIDERS: PCP Physician Assistant
DX: R00.2 Palpitations (principal); I48.0 Paroxysmal atrial fibrillation
CPT/HCPCS: 93010; 99214

== ENCOUNTER → 2025-07-24 14:53 | Outpatient (BNVA) | payer OTHER, SELFPAY | PROVIDERS: PCP Physician Assistant | DX: R00.2 Palpitations (principal); I48.0 Paroxysmal atrial fibrillation | CPT/HCPCS: 93005; 99212 ==

== ENCOUNTER 2025-07-30 13:47 | Outpatient (AMB) | payer OTHER, SELFPAY ==
--- NOTE | 2025-07-30 13:52 | MHC.PC.OV ---
Vital Signs 07/30/25 14:03 Height 5 ft 2 in Weight 167 lb 8 oz BMI 30.6 BP 134/82 Blood Pressure Location Lt brachial Position Sitting Respiration 14 Pulse 82 Pulse Source Pulse Oximeter Pulse Oximetry (%) 98 Oxygen Delivery Method Room Air Intake Visit Reasons: er lisa afib Intake Note: Emergency room follow up. Fractured the left finger, requesting an order for PT since the hospital referred to Dr. Kim and they don't take her insurance. Thinks she may have a mold issue at home, mucous, afib, coughing. Symptoms disappear when away from the home. Premix Concrete Batcher Required: No Allergies No Known Allergies Allergy (Verified 07/30/25 13:55) Tobacco use date assessed: 07/30/25 Dental Screening Dental Screen Date: 04/22/25 HPI er lisa afib HPI Details Patient is a 60 year-old female who presents today for a follow up. CV: Blood pressure today in the office is 132/82. She is currently on metoprolol 37.5 mg daily. Tolerating this well. Recently saw Cardiology and states that she was restarted on Eliquis. She says that she is hesitant to start this does understand her CHADS-VASc score is 2. She states that she does not want to start eliquis until she has at least one more episode. Understands the risks of stroke. -She has stopped drinking and wants to reduce her cholesterol with diet. Endo: On methimazole for her hyperthyroidism. Following with Dr. Myles and booked in October. Derm: Booked to see Dr. Mcnair in January MSK: At the beginning of June she fell walking into a dark room and tripped and landed on her hand. She did go to the ER and was noted to have a right 5th finger fracture. She saw Dr. Kim who provided her a splint and told her to go to physical therapy. She says that she still has some issues with dexterity of this finger and would like to see PT. [address] [employer] Building: UTD 10/12 Mammo: UTD, due this month 05/13 (booked) Colonoscopy: cologuard but has not heard yet Bone density: UTD 2023, osteopenia PFSH Medical History A-fib Gilbert syndrome Hyperthyroidism Hx of skin cancer, basal cell Dyslipidemia HTN (hypertension), benign Surgical History No pertinent past surgical history Family History Mother Breast cancer Social History Housing: House Alcohol intake: current Patient Tobacco Use Status: Current everyday Tobacco user Cigarettes Per Day: 1 Years Smoked: 10 e-Cigarette/Vaping Use: Never Used Second Hand Smoke Exposure: Yes Substance Use Type: Marijuana service: No Current occupational status: unemployed Current occupational exposures/hazards: No Cognitive needs: No Hearing needs: No Vision needs: Yes Questionnaire Thrive Questionnaire Date Thrive assessed: 04/22/25 I am a: Patient What is your living situation today?: I have a steady place to live Within the past 12 months, did the food you bought not last and you didn't have the money to get more?: Sometimes True Within the past 12 months, did you worry whether your food would run out before you got money to buy more?: Sometimes True Do you have trouble paying for medicines?: No Do you have trouble getting transportation to medical appointments?: No Do you have trouble paying your heating and electricity bill?: No Do you have trouble taking care of your child, family member or friend?: I choose not to answer this question Do you have trouble with day-to-day activities such as bathing, preparing meals, shopping, managing finances, etc.?: I choose not to answer this question Are you currently unemployed and looking for a job?: I choose not to answer this question Are you interested in more education?: I choose not to answer this question Please select the resources that you would like help with: Daily support Currently or been in a relationship where the following occur: I choose not to answer THRIVE Score: 2 AUDIT C Alcohol Use Questionnaire (AUDIT-C) 1. How often do you have a drink containing alcohol?: Never Total Score: 0 Physical exam (Primary Care) Tobacco/Smoking Status: Tobacco use Status Tobacco use date assessed 07/30/25 07/30/25 13:55 Patient Tobacco Use Status Current everyday Tobacco 07/30/25 13:54 e-Cigarette/Vaping Use Never Used 07/30/25 13:54 Thrive Assessment: Date of Thrive Assessment Date Thrive assessed 04/22/25 07/30/25 13:54 Currently or been in a relationship where the following occur: I choose not to answer Const Orientation/consciousness: patient oriented x3 HENMT Ears: hearing grossly normal bilaterally Neck Thyroid: Thyroid normal Lymphatic: no lymphadenopathy noted Resp Auscultation: clear to auscultation bilaterally Cardio Rate: regular rate Rhythm: regular rhythm Heart sounds: S1 normal heart sound present and S2 normal heart sound present GI Inspection: Yes normal to inspection Palpation (GI): Soft to palpation and Other GI palpation findings present (nontender, no cva tenderness) Auscultation: normoactive bowel sounds Rectal Exam - Female: deferred Skin General skin exam: no rashes or lesions noted Neuro General: patient oriented x3, gait normal and no focal motor deficits Coding Level of Care Code Est Pt Level 4 (53499) Complex EM visit Add On G2211 Diagnoses Paroxysmal atrial fibrillation I48.0 Atrial fibrillation type: paroxysmal HTN (hypertension), benign I10 Hyperthyroidism E05.90 Elevated LFTs R79.89 Finger fracture, right S62.359H Assessment & Plan Assessment & Plan (1) A-fib: Code(s): I48.91 - Unspecified atrial fibrillation Category: Medical Qualifiers: Atrial fibrillation type: paroxysmal Qualified Code(s): I48.0 - Paroxysmal atrial fibrillation Plan: Rate controlled with metoprolol Was encouraged to start Eliquis by Cardiology (2) HTN (hypertension), benign: Code(s): I10 - Essential (primary) hypertension Category: Medical Plan: WNL. Continue current regimen (3) Hyperthyroidism: Code(s): E05.90 - Thyrotoxicosis, unspecified without thyrotoxic crisis or storm Category: Medical Plan: Advised to follow with endocrinology TSH ordered given her recent breakthrough AFib (4) Elevated LFTs: Code(s): R79.89 - Other specified abnormal findings of blood chemistry Category: Medical Plan: We will monitor LFTs (5) Finger fracture, right: Code(s): S62.948M - Fracture of unspecified phalanx of unspecified finger, initial encounter for closed fracture Category: Medical Plan: Referral to PT. Orders: Orders Comprehensive Met. Panel Today E05.90 - Thyrotoxicosis, unspecified without thyrotoxic crisis or storm, I10 - Essential (primary) hypertension, I48.0 - Paroxysmal atrial fibrillation, R79.89 - Other specified abnormal findings of blood chemistry Lipid Panel Today E05.90 - Thyrotoxicosis, unspecified without thyrotoxic crisis or storm, I10 - Essential (primary) hypertension, I48.0 - Paroxysmal atrial fibrillation, R79.89 - Other specified abnormal findings of blood chemistry Complete Blood Count Auto Diff Today E05.90 - Thyrotoxicosis, unspecified without thyrotoxic crisis or storm, I10 - Essential (primary) hypertension, I48.0 - Paroxysmal atrial fibrillation, R79.89 - Other specified abnormal findings of blood chemistry TSH reflex Free T4 Today E05.90 - Thyrotoxicosis, unspecified without thyrotoxic crisis or storm, I10 - Essential (primary) hypertension, I48.0 - Paroxysmal atrial fibrillation, R79.89 - Other specified abnormal findings of blood chemistry UA CC w/rflx Micro + Cult Today E05.90 - Thyrotoxicosis, unspecified without thyrotoxic crisis or storm, I10 - Essential (primary) hypertension, I48.0 - Paroxysmal atrial fibrillation, R30.0 - Dysuria, R79.89 - Other specified abnormal findings of blood chemistry PT Evaluation and Treatment Today S62.609A - Fracture of unspecified phalanx of unspecified finger, initial encounter for closed fracture
[2025-07-30 14:03] VITALS: BP 134/82; PULSE 82; RESP 14; O2SAT 98; BMI 30.6
--- OUTSIDE RECORDS SUMMARY | 2025-07-30 17:37 | XMS_ITS | Encounter Summary ---
Author Organization [facility] Address [address] [place] [address] Phone Care Team Providers Care Quality And Reliability Engineer Name Role Phone Alecia Christiansen Primary Care Provider [phone]- [phone] Encounter Details Date Type Department Care Team (Late st Contact Info) Description 09/08/2024 Procedure Pass [facility] - [facility] [address] [place] [address] Social History Tobacco Use Types Packs/Day Years [...] AM EST Office Visit [facility] [address] [place] [address] Yenny Lomax MD [address] [place] [address] [email or web address] 10/26/2025 2:15 PM EST Office Visit [facility] [address] [facility] [address] [place] [address] Noe Love MD [address] [place] [address] [email or web address] documented as of this encounter Visit Diagnoses Not on filedocumented in this encounter Care Teams Quality And Reliability Engineer Relationship Specialty Start Date End Date Alecia Christiansen PA [address] [place] [id number] PCP - General Physician Machinist Instructor 07/22/24 documented as of this encounter Additional Source Comments The information contained in this document represents components of the legal health record. It is not the complete legal health record.[facility]
--- OUTSIDE RECORDS SUMMARY | 2025-07-30 17:37 | XMS_ITS | Clinical Summary ---
Author Organization [facility] Address [address] [place] [phone] Phone Care Team Providers Care Center Consultant Name Role Phone Alecia Christiansen Primary Care Provider [phone]- [phone] Allergies No known active allergies Medications ELIQUIS [...] Description 10/05/2025 10:10 AM EST Office Visit [facility] [place] [address] [facility] [address] [place] [address] Yenny Lomax MD [address] [place] [phone] [email or web address] 10/26/2025 2:15 PM EST Office Visit [facility] [address] [facility] 10th [place] [address] Noe Love MD [address] [place] [address] [email or web address] Due Date Last Done Comments [...] 2010 ZOSTER VACCINES (1 of 2) 2015 INFLUENZA VACCINE (#1) 2025 COVID-19 VACCINE ( - 2023-2 5 season) 2025 SMOKING Hx and SMOKELESS TOB ACCO SCREENING [...] topic Medical Devices Not on file [place] [address] [place] [address] ACO [facility] ACO [facility] ACO Member Subscriber Plan / Payer (Ef fective 2024-Present) Name:Lelo Ma Relation to Subscriber:Self Name:Lelo Ma Payer ID:[id number] Group ID:[id number] Type:Medicaid Address: [address] [place] [facility] [place] [address] [place] [address] ACO [facility] ACO Care Teams Center Consultant Relationship Specialty Start Date End Date Alecia Christiansen PA [address] [place] [address] PCP - General Physician Mortician Helper 07/22/24 Additional Source Comments The information contained in this document represents components of the legal health record. It is not the complete legal health record.[facility]
== END 2025-07-30 14:19 | disposition home or self-care (01) ==
LOC: HO.HMCFM 13:48
PROVIDERS: PCP Physician Assistant; Visit Provider Physician Assistant
DX: I48.0 Paroxysmal atrial fibrillation (principal); I10 Essential (primary) hypertension; E05.90 Thyrotoxicosis, unspecified without thyrotoxic crisis or storm; R79.89 Other specified abnormal findings of blood chemistry; S62.609A Fracture of unspecified phalanx of unspecified finger, initial encounter for closed fracture

== ENCOUNTER → 2025-07-30 13:47 | Outpatient (BNVA) | payer OTHER, SELFPAY | PROVIDERS: PCP Physician Assistant; Visit Provider Physician Assistant | DX: I48.0 Paroxysmal atrial fibrillation (principal); I10 Essential (primary) hypertension; E05.90 Thyrotoxicosis, unspecified without thyrotoxic crisis or storm; R79.89 Other specified abnormal findings of blood chemistry; S62.606A Fracture of unspecified phalanx of right little finger, initial encounter for closed fracture; Z79.899 Other long term (current) drug therapy; W19.XXXA Unspecified fall, initial encounter; Y93.9 Activity, unspecified; Y92.9 Unspecified place or not applicable; Y99.9 Unspecified external cause status | CPT/HCPCS: 99212 ==

== ENCOUNTER 2025-10-08 14:01 | Outpatient (AMB) | payer OTHER, SELFPAY ==
--- OUTSIDE RECORDS SUMMARY | 2025-10-05 10:10 | XMS_ITS | Encounter Summary ---
Author Organization [facility] Address [address] [place] [address] [place] [address] Phone Care Team Providers Care City Recorder Name Role Phone Alecia Christiansen Primary Care Provider +1- [phone] Encounter Details Date Type Department Care Team (Latest Contact Info) Description 10/05/2025 10:10 AM EST Office Visit [facility] COM[facility]IVE OPHTHALMOLOGY [address] [place] [address] Yenny Lomax MD [address] [place] [phone] [email or web address] 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 eyes (Primary Dx); [...] New patient 09/08/[address] Myles Or Nurse Manager for TADEO Past medical history: Hyperthyroidism on Methimazole 1.25mg (decreased from 2.5mg), HTN Patient doing well since last visit, improved appearance of proptosis Previously eye has appearance changed since [id number], was not seen by any community educator # Thyroid eye disease both eyes # [...] soft contact lenses (dailies), prescribed by outside cigarette stamper > CL hygiene discussed # Lattice degeneration [...] Description 10/26/2025 2:15 PM EST Office Visit [facility] [address] [address] Noe Love MD [address] [place] [phone] [email or web address] 04/05/2026 10:40 AM EDT Office Visit [facility] COMPREHENSIVE OPHTHALMOLOGY [address] [place] [address] Yenny Lomax MD [address] [place] [phone] [email or web address] documented as of this encounter Procedures [...] IMAGING Final Res ult Performing Organization Address [facility] Co de Phone Number RAMONE * Geronimo Visual Field - OU - Both Eyes (10/05/2025 10:36 AM EST) Narrative RAMONE - 10/05/2025 11:52 AM EST Right Eye Pattern: 24-2. Findings: Normal, Non-specific defects. Left Eye Pattern: 24-2. Findings: Normal, Non-specific defects. General Details Card Grinder Helper Comments: Authorization Manager confirms that the patient maintained fixation on the target. Yenny Lomax MD OPHTHALMOLOGY IMAGING Final Res ult Performing Organization Address [facility] de Phone Number RAMONE documented in this encounter Visit Diagnoses Diagnosis 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 eyes- Primary Unspecified preglaucoma Thyroid eye disease Toxic diffuse goiter without mention of thyrotoxic crisis or storm Bilateral retinal lattice degeneration Lattice degeneration of peripheral retina High myopia, bilateral Myopia documented in this encounter Care Teams City Recorder Relationship Specialty Start Date End Date Alecia Christiansen PA [address] [place] [address] PCP - General Physician Crop Or Grain Farmer 07/22/24 documented as of this encounter Additional Source Comments The information contained in this document represents components of the legal health record. It is not the complete legal health record.[facility]
--- NOTE | 2025-10-08 14:07 | A.OFFVIS_ITS ---
Vital Signs 10/08/25 14:10 Height 5 ft 2 in Weight 166 lb 14.239 oz BMI 30.5 BP 132/76 Blood Pressure Location Lt brachial Position Sitting Pulse 61 Pulse Source Pulse Oximeter Pulse Oximetry (%) 99 Oxygen Delivery Method Room Air Intake Visit Reasons: f/u graves dx Intake Note: Patient present today for Hyperthyroidism office visit. Highway Administrative Engineer Required: No Accompanied by: Self / Same As Patient Allergies No Known Allergies Allergy (Verified 10/08/25 14:10) Medication List - Last Reconciled 10/08/25 by Cosme Myles MD apixaban 5 mg PO BID PRN latanoprost 0.005% 1 drp ophthalmic (eye) QPM methimazole 2.5 mg (1/2 x 5 mg) PO DAILY metoprolol succinate ER 25 mg PO DAILY 90 days HPI Comments Details: 60 YO f with PMHx a fib who is seen in consultation for hyperthyroidism at the request of PCP. Was initially diagnosed with hyperthyroidism in 01/2024 with presentation of hyperthyroidism/afib . Was placed on methimazole 15 mg QD . Recently stopped 1 wk ago . On metoprolol Currently denies any dysphagia or hoarseness of voice. Denies sensation of swelling in the neck or difficulty breathing while lying flat. Denies any tenderness in the neck. Denies any palpitations, tremors, weight loss, frequent bowel movements. Has ocular complaints,some blurred but no double vision. Denies hair loss, dry skin, heat or cold intolerance, weight gain, confusion. Denies any history of head or neck irradiation. Denies any family history of thyroid cancer. Had ultrasounds and scan in the past. Aunt was on thyroid medications Thyroid US: Labs: Currently on methimazole 1.25 mg q.d. TRAB antibodies are positive recently, Saw Dr. Lomax at [facility] .Seeing [facility] next wk [facility] Medical History A-fib Gilbert syndrome Hyperthyroidism Hx of skin cancer, basal cell Dyslipidemia HTN (hypertension), benign Surgical History No pertinent past surgical history Family History Mother Breast cancer Social History Housing: House Alcohol intake: current Patient Tobacco Use Status: Current everyday Tobacco user Cigarettes Per Day: 1 Years Smoked: 10 e-Cigarette/Vaping Use: Never Used Second Hand Smoke Exposure: Yes Substance Use Type: Marijuana service: No Current occupational status: unemployed Current occupational exposures/hazards: No Cognitive needs: No Hearing needs: No Vision needs: Yes Physical Exam Vital Signs: Last Vital Signs Pulse 61 10/08/25 14:10 BP 132/76 10/08/25 14:10 Pulse Ox 99 10/08/25 14:10 Oxygen Delivery Method Room Air 10/08/25 14:10 BMI result Body Mass Index 30.5 Const Other: There is proptosis of the righteye greater than left. Thyroid gland is nl size weighs about 15 g . There are no thyroid nodules palpated Assessment & Plan Assessment & Plan (1) Hyperthyroidism: Code(s): E05.90 - Thyrotoxicosis, unspecified without thyrotoxic crisis or storm Category: Medical Plan: Is a 59-year-old white female with a history of Graves disease and hyperthyroidism very sensitive to anti-thyroid medication. She is currently on 2.5 mg mg of methimazole . She appears to be clinically euthyroid Plan is to recheck thyroid function studies along with TSI antibodies . We will have to adjust methimazole accordingly. Depending upon antibody status we will discuss with the patient definitive therapy with surgery Orders: Orders Triiodothyronine T3 Free 10/09/25 E05.90 - Thyrotoxicosis, unspecified without thyrotoxic crisis or storm Thyroid Stimulating Immunoglob 10/09/25 E05.90 - Thyrotoxicosis, unspecified without thyrotoxic crisis or storm Free T4 (Free Thyroxine) 10/09/25 E05.90 - Thyrotoxicosis, unspecified without thyrotoxic crisis or storm Thyroid Stimulating Hormone 10/09/25 E05.90 - Thyrotoxicosis, unspecified without thyrotoxic crisis or storm Coding Level of Care Code Est Pt Level 3 (36432) Diagnoses Hyperthyroidism E05.90
[2025-10-08 14:10] VITALS: BP 132/76; PULSE 61; O2SAT 99; BMI 30.5
--- OUTSIDE RECORDS SUMMARY | 2025-10-08 19:26 | XMS_ITS | Encounter Summary ---
Author Organization [facility] Address [address] [place] [address] Phone Care Team Providers Care Whiskey Proof Reader Name Role Phone Alecai Christiansen Primary Care Provider +1- [phone] Encounter Details Date Type Department Care Team (Late st Contact Info) Description 09/08/2024 Procedure Pass [facility] Main [address] [address] Social History Tobacco Use Types Packs/Day Years [...] Description 10/26/2025 2:15 PM EST Office Visit [facility] Main [address] [address] Noe Love MD [address] [place] [phone] [email or web address] 04/05/2026 10:40 AM EDT Office [place] [facility] [address] [place] [address] Yenny Lomax MD [address] [place] [phone] [email or web address] documented as of this encounter Visit Diagnoses Not on filedocumented in this encounter Care Teams Whiskey Proof Reader Relationship Specialty Start Date End Date Alecia Christiansen PA [address] [place] [phone] PCP - General Physician Hospitality Services Manager 07/22/24 documented as of this encounter Additional Source Comments The information contained in this document represents components of the legal health record. It is not the complete legal health record.[facility]
== END 2025-10-08 14:41 | disposition home or self-care (01) ==
LOC: HO.ENCR 14:02
PROVIDERS: PCP Physician Assistant; Visit Provider Internal Medicine Endocrinology, Diabetes & Metabolism
DX: E05.90 Thyrotoxicosis, unspecified without thyrotoxic crisis or storm (principal)
CPT/HCPCS: 99213

== ENCOUNTER → 2025-10-08 14:01 | Outpatient (BNVA) | payer OTHER, SELFPAY | PROVIDERS: PCP Physician Assistant; Visit Provider Internal Medicine Endocrinology, Diabetes & Metabolism | DX: E05.90 Thyrotoxicosis, unspecified without thyrotoxic crisis or storm (principal) | CPT/HCPCS: 99212 ==

== ENCOUNTER 2025-10-09 09:04 | Outpatient (REF) | payer OTHER, SELFPAY ==
--- OUTSIDE RECORDS SUMMARY | 2025-10-05 10:10 | XMS_ITS | Encounter Summary ---
Author Organization [facility] Address [address] [place] [address] [place] [phone] Phone Care Team Providers Care Tooling Specialist Name Role Phone Alecia Christiansen Primary Care Provider +1- [phone] Encounter Details Date Type Department Care Team (Latest Contact Info) Description 10/05/2025 10:10 AM EST Office Visit [facility] [address] [place] [address] Yenny Lomax MD [address] [place] [phone] [email or web address] 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 eyes (Primary Dx); Thyroid eye disease; Bilateral retinal lattice degeneration; High myopia, bilateral Social History Tobacco Use Types Packs/Day Years [...] AM EDT documented as of this encounter Patient Instructions * Patient Instructions* Yenny Lomax MD - 10/05/2025 10:10 AM EST - Preservative-free Artificial tears 1-2 drops 2 times a day, more often as needed for dryness in both eyes: Systane, Refresh, Thera tears, etc. Avoid the brands Visine and Clear Eyes - Latanoprost 1 drop every night in both eyes - Refresh PM or Systane artificial tear ointment as needed at night for severe dry eye documented in this encounter Progress Notes * Yenny Lomax MD - 10/05/2025 10:10 AM EST 60 y.o. female here for 6 months f/u New patient 09/08/[address] Myles Dietary Aide for TADEO Past medical history: Hyperthyroidism on Methimazole 1.25mg (decreased from 2.5mg), HTN Patient doing well since last visit, improved appearance of proptosis Previously eye has appearance changed since 1323-3157, was not seen by any fire patrol # Thyroid eye disease both eyes # Proptosis OU Smoker - restarted 2 weeks ago Proptosis improved per Mark measurements, Previously 31.5 and 30.5 mm by Mark Ishihara wnl both eyes DFE stable, no new optic nerve pallor or swelling OCT 10/05/25: OD Sup/inf thinning stable OS Sup/inf thinning stable, rim area decreased, avg RNFL 79 um stable VF 24-2 10/05/25: Wnl OU CT orbit 09/15/24: : 1. Severe proptosis and enlargement of the extraocular muscles which could be seen in the setting of thyroid eye disease. Mild crowding at the orbital apices. 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 Pachy 561 OD, 571 OS No family history of glaucoma IOP borderline , no drance heme - Patient has not been using every night > Continue Latanoprost 1 drop every night in both eyes for now - importance of compliance emphasized # High myopia New prescription printed and provided to patient last visit Continue current soft contact lenses (dailies), prescribed by outside cnc wood lathe operator > CL hygiene discussed # Lattice degeneration both eyes Asymptomatic No family history of retinal detachment No retinal tear/detachement on dilated fundus exam both eyes Retinal detachment precautions discussed F/u 6 months with me, Ishihara, VF 24-2 both eyes and OCT retinal nerve fiber layer/ganglion cell complex, sooner as needed All explained to patient, questions answered. Patient demonstrates understanding. documented in this encounter Plan of Treatment Upcoming Encounters Date Type Department Care Team (Late st Contact Info) Description 10/26/2025 2:15 PM EST Office Visit [facility] [address] [address] Noe Love MD [address] [place] [phone] [email or web address] 04/05/2026 10:40 AM EDT Office Visit [facility] [address] [place] [address] Yenny Lomax MD [address] [place] [phone] [email or web address] documented as of this encounter Procedures Procedure Name Priority Date/Time Associated Diagnosis Comments OCT, OPTIC NERVE - OU - BOTH EYES Routine 10/05/2025 10:36 AM EST 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 eyes GERONIMO VISUAL FIELD - OU - BOTH EYES Routine 10/05/2025 10:36 AM EST 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 eye disease documented in this encounter Results * OCT, Optic Nerve - OU - Both Eyes - Cirrus; GCC, RNFL (10/05/2025 10:36 AM EST) Narrative RAMONE - 10/05/2025 11:23 AM EST OD Sup/inf thinning stable OS Sup/inf thinning stable, rim area decreased, avg RNFL 79 um stable Yenny Lomax MD OPHTHALMOLOGY IMAGING Final Res ult Performing Organization Address [facility] Co de Phone Number RAMONE * Geronimo Visual Field - OU - Both Eyes (10/05/2025 10:36 AM EST) Narrative RAMONE - 10/05/2025 11:52 AM EST Right Eye Pattern: 24-2. Findings: Normal, Non-specific defects. Left Eye Pattern: 24-2. Findings: Normal, Non-specific defects. General Details Correctional Security Officer Comments: Game Farm Helper confirms that the patient maintained fixation on the target. 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 It is not the complete legal health record.[facility]
--- OUTSIDE RECORDS SUMMARY | 2025-10-09 09:22 | XMS_ITS | Encounter Summary ---
Author Organization [facility] Address [address] [place] [address] Phone Care Team Providers Care Parachute Marker Name Role Phone Alecia Christiansen Primary Care Provider +1- [phone] Encounter Details Date Type Department Care Team (Late st Contact Info) Description 09/08/2024 Procedure Pass [facility] - [facility] Main [address] [address] Social History Tobacco Use Types Packs/Day Years [...] EST Office Visit [facility] Main [address] [address] Noe Love MD [address] [place] [phone] [email or web address] 04/05/2026 10:40 AM EDT Office Visit [facility] COMPREHENSIVE OPHTHALMOLOGY [address] [place] [address] Yenny Lomax MD [address] [place] [phone] [email or web address] documented as of this encounter Visit Diagnoses Not on filedocumented in this encounter Care Teams Parachute Marker Relationship Specialty Start Date End Date Alecia Christiansen PA [address] [place] [phone] PCP - General Physician Psychological Operations 07/22/24 documented as of this encounter Additional Source Comments The information contained in this document represents components of the legal health record. It is not the complete legal health record.[facility]
--- OUTSIDE RECORDS SUMMARY | 2025-10-09 09:22 | XMS_ITS | Clinical Summary ---
Author Organization [facility] Address [address] [place] [address] Phone Care Team Providers Care Polisher And Sander Name Role Phone Alecia Christiansen Primary Care Provider +1- [phone] Allergies No known active allergies Medications ELIQUIS [...] Active Active Problems No known active problems Encounters Date Type Department Care Team Description 10/05/2025 10:10 AM EST Office Visit [facility] [address] [place] [address] Yenny Lomax MD 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 eyes (Primary Dx); Thyroid eye disease; Bilateral retinal lattice degeneration; High myopia, bilateral from Last 3 Months Social History Tobacco [...] Description 10/26/2025 2:15 PM EST Office Visit [facility] [address] [facility] 10[address] [place] [address] Noe Love MD [address] [place] [address] [email or web address] 04/05/2026 10:40 AM EDT Office Visit [facility] [place] [address] [facility] [address] [place] [address] Yenny Lomax MD [address] [place] [phone] [email or web address] Maintenance Due Date Last Done Comments [...] 2015 INFLUENZA VACCINE (#1) 2025 COVID-19 VACCINE (1 - 2024-2 6 season) 2025 SMOKING Hx and SMOKELESS TOB ACCO SCREENING 03/30/2026 03/30/2025 RSV VACCINE (1 - 1-dose 75+ series) 2040 HEPATITIS A VACCINES Aged Out No long er eligible based on patient's age to complete this topic HIB VACCINES Aged Out No longer eligi ble based on patient's age to complete this topic IPV VACCINES Aged Out No longer eligi ble based on patient's age to complete this topic MENINGOCOCCAL VACCINES (ACWY) Aged Out No longer eligible based on patient's age to complete this topic MENINGOCOCCAL VACCINES (B) Aged Out N o longer eligible based on patient's age to complete this topic Medical Devices Not on file Procedures Procedure Name Priority Date/Time Associated Diagnosis Comments OCT, OPTIC NERVE - OU - BOTH EYES Routine 10/05/2025 10:36 AM EST 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 eyes GERONIMO VISUAL FIELD - OU - BOTH EYES Routine 10/05/2025 10:36 AM EST 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 Findings: Normal, Non-specific defects. Left Eye Pattern: 24-2. Findings: Normal, Non-specific defects. General Details Letter Carrier Comments: Non Licensed Nuclear Plant Operator confirms that the patient maintained fixation on the target. us Yenny Lomax MD OPHTHALMOLOGY IMAGING Final Res ult HARMONY from Last [address] [place] [address] [employer] [facility] [place] [facility] [employer] [address] [place] [address] [place] [address] [place] [address] [employer] [place] [facility] [employer] Care Teams Polisher And Sander Relationship Specialty Start Date End Date Alecia Christiansen PA [address] [place] [phone] PCP - General Physician Desk Director 07/22/24 Additional Source Comments The information contained in this document represents components of the legal health record. It is not the complete legal health record.[facility]
--- OUTSIDE RECORDS SUMMARY | 2025-10-09 09:22 | XMS_ITS | Clinical Summary ---
Author Organization [facility] Address [address] [place] [address] Phone Care Team Providers Care Cnc Specialist Name Role Phone Alecia Christiansen Primary Care Provider [phone] Allergies No known active allergies Medications Eliquis 5 mg tablet Take 1 tablet (5 mg total) by mouth 2 (two) times a day. 07/24/2025 Active latanoprost (XALATAN) 0.005 % ophthalmic solution place 1 drop into each eye nightly at bedtime. 06/26/2025 Active methIMAzole (TAPAZOLE) 5 mg tablet TAKE 1/2 TABLET DAILY FOR 2.5MG DOSE 06/26/2025 Active metoprolol succinate (TOPROL-XL) 25 mg 24 hr tablet Take 1 tablet (25 mg total) by mouth 1 (one) time each day. 09/17/2025 Active flecainide (TAMBOCOR) 100 mg tablet Take 2 tablets (200 mg total) by mouth 1 (one) time each day if needed (palpitation s). 30 tablet 09/21/2025 Active Active Problems Problem Noted Date Diagnosed Date Palpitation 09/21/2025 PAF (paroxysmal atrial fibri llation) ([facility] V24, [facility] V28) 09/21/2025 Hypertension Encounters Date Type Department Care Team Description 09/25/2025 Telephone [facility] [address] [facility] [address] [place] [address] Deuce Garcia MD 09/21/2025 10:25 AM EST Office Visit [facility] Card[facility] [address] [place] [address] Deuce Garcia MD PAF (paroxysmal atrial fibrillation) ([facility] V24, [facility] V28) (Primary Dx) 08/24/2025 Telephone [facility] [address] [facility] [address] [place] [address] Deuce Garcia MD from Last 3 Months Medical History Medical History Date Comments Hypertension High myopia Social History Tobacco Use Types Packs/Day Years Used Date Smoking Tobacco: Never Assessed Comments Unknown Sex and Gender Information Value Date Recorded Sex Assigned at Not on file Legal Sex Female 11:41 AM EDT Gender Identity Not on file Sexual Orientation Not on file Obstetrics History Last Filed Vital Signs Vital Sign Reading Time Taken Comments Blood Pressure 140/90 09/21/2025 10:37 AM EST Pulse 62 09/21/2025 10:37 AM EST Temperature - - Respiratory Rate - - Oxygen Saturation 99% 09/21/2025 10:37 AM EST Inhaled Oxygen Concentration - - Weight 72.1 kg (159 lb) 09/21/2025 10:37 AM EST Height 157.5 cm (5' 2 ) 09/21/2025 10:37 AM EST Body Mass Index 29.08 09/21/2025 10:37 AM EST Plan of Treatment Scheduled Procedures Name Priority Associated Diagnoses Date/Ti me ABLATION A-FIB PAF (paroxysmal atrial fibrillation) ([facility] V24, [facility] V28) Health Maintenance Due Date Last Done Comments Breast Cancer Screening 1965 Colorectal Cancer Screening: Colonoscopy 1965 DTaP,Tdap,and Td Vaccines (1 - Tdap) 1984 Cervical Cancer Screening: P ap Smear 1986 Pneumococcal Vaccine: 50+ Ye ars (1 of 1 - PCV) 2015 Zoster Vaccines (1 of 2) 2015 Cholesterol Screening (Lipid Panel) 09/02/2024 HIV Screening 09/02/2024 Hepatitis C Screening 09/02/2024 Social Influencers of Health Screening 09/02/2024 Depression Screening 11/19/2024 Hypertension/CHF/CAD Annual BMP Blood Test 07/01/2025 COVID-19 Vaccine ( - 2024-2 6 season) 2025 Influenza Vaccine (#1) 2025 11/19/2024 RSV Immunization Adult Patie nts (1 - [...] on patient's age to complete this topic Procedures Procedure Name Priority Date/Time Associated Diagnosis Comments ECG 12-LEAD Routine 09/21/2025 11:20 AM EST PAF (paroxysmal atrial fibrillation) (CMS/HCC V24, [facility] V28) from Last 3 Months Results * ECG 12 lead (09/21/2025 11:20 AM EST) Narrative GEMUSE - 09/21/2025 11:20 AM EST NSR 62bpm us Deuce Garcia MD ECG ORDERABLES Final Result GEMUSE from Last 3 Months Insurance [facility] Care Teams Cnc Specialist Relationship Specialty Start Date End Date Alecia Christiansen PA [address] [place] [phone] PCP - General 06/13/24
[2025-10-09 11:28] LABS: MANUAL DIFF FLAG NO
[2025-10-09 11:43] LABS: Hematocrit 44.5 % (37.0-47.0); Hemoglobin 15.1 g/dl (12.0-16.0); Imm Gran Abs Auto 0.03 X10*3/uL (0.00-0.03); Imm Gran Pct Auto 0.5 % (0.0-0.4); Lymphocytes Absolute Auto 2.7 X10*3/uL (1.2-4.9); Mean Corpuscular HGB Conc 33.9 g/dl (31.0-35.0); Mean Corpuscular Hemoglobin 30.6 pg (27.0-33.0); Mean Corpuscular Volume 90.1 fL (80.0-98.0); NRBC Abs Auto 0.000 X10*3/uL (0.0-0.012); NRBC Pct Auto 0.0 /100WBC (0.0-0.2); Platelet Count 245 X10*3/uL (160-400); Red Blood Count 4.94 X10*6/uL (4.20-5.50); White Blood Count 6.0 X10*3/uL (4.8-10.8)
[2025-10-09 12:23] LABS: Alanine Aminotransferase 46 U/L (0-31); Albumin Level 4.4 g/dL (3.5-5.0); Alkaline Phosphatase 86 U/L (39-117); Anion Gap 13 (12-20); Aspartate Amino Transferase 30 U/L (5-31); Blood Urea Nitrogen 19 mg/dL (9-16); Calcium 9.2 mg/dL (8.4-10.2); Carbon Dioxide 25 mmol/L (22-29); Chloride 106 mmol/L (96-108); Cholesterol 223 mg/dL (<200); Estimated Glomerular Filt Rate 59; HDL Cholesterol 51 mg/dL (>40); Potassium 4.3 mmol/L (3.3-5.1); Sodium 140 mmol/L (135-145); Total Protein 6.8 g/dL (6.5-8.0); Triglycerides 254 mg/dL (<150)
[2025-10-09 12:25] LABS: Free T4 (Free Thyroxine) 0.99 ng/dL (0.71-1.85); Thyroid Stimulating Hormone 0.87 uIU/mL (0.32-4.0)
== END 2025-10-09 09:05 | disposition home or self-care (01) ==
LOC: HO.WFDLDS 09:04
PROVIDERS: Referring Provider Internal Medicine Endocrinology, Diabetes & Metabolism; Visit Provider Physician Assistant
DX: I48.0 Paroxysmal atrial fibrillation (principal); E05.90 Thyrotoxicosis, unspecified without thyrotoxic crisis or storm; I10 Essential (primary) hypertension; R94.4 Abnormal results of kidney function studies; R79.89 Other specified abnormal findings of blood chemistry
CPT/HCPCS: 36415; 80053; 80061; 82248; 84439; 84443; 84445; 84481; 85025

== ENCOUNTER 2025-11-04 13:55 | Outpatient (REF) | payer OTHER, SELFPAY ==
[2025-11-04 19:12] LABS: MANUAL DIFF FLAG NO
--- OUTSIDE RECORDS SUMMARY | 2025-11-04 19:24 | XMS_ITS | Encounter Summary ---
Author Organization [facility] Address [address] [place] [address] [place] [address] Phone Care Team Providers Care Medical Staff Manager Name Role Phone Alecia Christiansen Primary Care Provider [phone] Encounter Details Date Type Department Care Team (Late st Contact Info) Description 09/08/2024 Procedure Pass [facility] - [facility] Main [place] [address] [place] [phone] Social History Tobacco Use Types Packs/Day Years [...] Care Team (Late st Contact Info) Description 02/15/2026 10:00 AM EDT Appointment [facility] [address] [place] [phone] Noe Love MD [address] [place] [address] [email or web address] 02/15/2026 11:00 AM EDT Office Visit [facility] Plastic and Reconstructive Surgery [address] [address] Noe Love MD [address] [place] [address] [email or web address] 04/05/2026 10:40 AM EDT Office Visit [facility] [address] [facility] [address] [place] [address] Yenny Lomax MD [address] [place] [address] [email or web address] documented as of this encounter Visit Diagnoses Not on filedocumented in this encounter Care Teams Medical Staff Manager Relationship Specialty Start Date End Date Alecia Christiansen PA [address] [place] [address] PCP - General Physician Supervisor Payroll 07/22/24 documented as of this encounter Additional Source Comments The information contained in this document represents components of the legal health record. It is not the complete legal health record.[facility]
--- OUTSIDE RECORDS SUMMARY | 2025-11-04 19:24 | XMS_ITS | Clinical Summary ---
Author Organization [facility] Address [address] [place] [address] Phone Care Team Providers Care Records Management Technician Name Role Phone Alecia Christiansen Primary Care Provider [phone] Allergies No known active allergies Medications Eliquis [...] Diagnosed Date Palpitation 09/21/2025 PAF (paroxysmal atrial fibrillation) 09/21/2025 Hypertension Encounters Date Type Department Care Team Description 10/09/2025 Telephone [facility] Cardiology [facility] [address] [place] [phone] Deuce Garcia MD 09/25/2025 Telephone [facility] - [address] [place] [address] Deuce Garcia MD 09/21/2025 10:25 AM EST Office Visit [facility] Cardiology [facility] [address] [place] [phone] Deuce Garcia MD PAF (paroxysmal atrial fibrillation) (CMS/HCC V24, CMS/HCC V28) (Primary Dx) 08/24/2025 Telephone [facility] - [address] [facility] [address] [place] [address] Deuce Garcia MD from Last 3 Months Medical History Medical History Date Comments Hypertension High myopia Social History Tobacco Use Types Packs/Day Years Used Date Smoking Tobacco: Never Assessed Comments Unknown Sex and Gender Information Value Date Recorded Sex Assigned at Not on file Legal Sex Female 11:41 AM EDT Gender Identity Not on file Sexual Orientation Not on file Last Filed Vital Signs Vital Sign Reading [...] 09/21/2025 10:37 AM EST Plan of Treatment Upcoming Encounters Date Type Department Care Team (Latest Contact Info) Description 03/31/2026 7:30 AM EDT Hospital Encounter [facility] Cardiac Implementation Director [address] [place] [phone] Deuce Garcia MD [address] [place] [address] Dr [place] [address] [place] [phone] PAF (paroxysmal atrial fibrillation) (CMS/HCC V24, CMS/HCC V28) 03/31/2026 7:30 AM EDT - 03/31/2026 9:30 AM EDT Surgery [facility] Cardiac Implementation Director [address] [place] [phone] Deuce Garcia MD [address] [place] [address] Dr [address] [address] [place] [phone] Ablation Atrial Fibrillation [00097 (CPT )] Health Maintenance Due Date Last Done Comments [...] Annual BMP Blood Test 07/01/2025 COVID-19 Vaccine (1 - 2024-2 6 season) 2025 Influenza Vaccine [...] EST PAF (paroxysmal atrial fibrillation) (CMS/HCC V24, CMS/HCC V28) from Last 3 Months Results * ECG 12 lead (09/21/2025 11:20 AM EST) Narrative [facility] - 09/21/2025 11:20 AM EST NSR 62bpm us Deuce Garcia MD ECG ORDERABLES Final Result [facility] from Last 3 Months Insurance [employer] Care Teams Records Management Technician Relationship Specialty Start Date End Date Alecia Christiansen PA [facility] [place] [address] PCP - General 06/13/24
--- OUTSIDE RECORDS SUMMARY | 2025-11-04 19:25 | XMS_ITS | Encounter Summary ---
Author Organization [facility] Address [address] [place] [address] [place] [address] Phone Care Team Providers Care Dairy Nutrition Consultant Name Role Phone Alecia Christiansen Primary Care Provider [phone] Encounter Details Date Type Department Care Team (Late st Contact Info) Description 11/02/2025 Telephone [facility] Plastic and Reconstructive Surgery [address] [address] Noe Love MD [address] [place] [address] [email or web address] Social History Tobacco Use Types Packs/Day Years [...] AM EDT documented as of this encounter Progress Notes * Kelley Bach - 11/02/2025 11:29 AM EST 10/26 visit note faxed to [facility] at [phone] and follow up visit scheduled with pt documented in this encounter Plan of Treatment Upcoming Encounters Date Type Department Care Team (Late st Contact Info) Description 02/15/2026 10:00 AM EDT Appointment [facility] [address] [place] [address] Noe Love MD [address] [place] [phone] [email or web address] 02/15/2026 11:00 AM EDT Office Visit [facility] Plastic and Reconstructive Surgery [address] [place] [address] Noe Love MD [address] [place] [phone] [email or web address] 04/05/2026 10:40 AM EDT Office Visit [facility] [address] [facility] [address] [place] [address] Yenny Lomax MD [address] [place] [address] [email or web address] documented as of this encounter Visit Diagnoses Not on filedocumented in this encounter Care Teams Dairy Nutrition Consultant Relationship Specialty Start Date End Date Alecia Christiansen PA [address] [place] [phone] PCP - General Physician Remote Advisor 07/22/24 documented as of this encounter Additional Source Comments The information contained in this document represents components of the legal health record. It is not the complete legal health record.[facility]
--- OUTSIDE RECORDS SUMMARY | 2025-11-04 19:25 | XMS_ITS | Clinical Summary ---
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 Name Role Phone Alecia Christiansen Primary Care Provider [phone] Allergies No known active allergies Medications ELIQUIS [...] Encounters Date Type Department Care Team Description 11/02/2025 Telephone [facility] [address] [place] [address] Noe Love MD 10/26/2025 2:15 PM EST Office [facility] [address] [place] [address] Noe Love MD Thyroid eye disease (Primary Dx); Chronic dryness of both eyes 10/26/2025 Orders Only [facility] [address] [place] [address] Neo Love MD Thyroid eye disease (Primary Dx) 10/05/2025 10:10 AM EST [facility] [address] [facility] [address] [place] [address] Yenny Lomax MD 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 [...] Appointment [facility] [address] [place] [address] Noe Love MD [address] [place] [phone] [email or web address] 02/15/2026 11:00 AM EDT Office [facility] [address] [place] [address] Noe Love MD [address] [place] [phone] [email or web address] 04/05/2026 10:40 AM EDT Office [facility] [address] [facility] [address] [place] [address] Yenny Lomax MD [address] [place] [phone] [email or web address] Health Maintenance Due Date Last Done Comments [...] SMOKING Hx and SMOKELESS TOB ACCO SCREENING 10/26/2026 10/26/2025 RSV VACCINE (1 - 1-dose 75+ series) [...] Cirrus; GCC, RNFL (10/05/2025 10:36 AM EST) Cory PACK - 10/05/2025 11:23 AM EST OD Sup/inf thinning stable OS Sup/inf thinning stable, rim area decreased, avg RNFL 79 um stable us Yenny Lomax MD OPHTHALMOLOGY IMAGING Final Res ult Performing Organization Address [facility] de Phone Number RAMONE * Geronimo Visual Field - OU - Both Eyes (10/05/2025 10:36 AM EST) Narrative RAMONE - 10/05/2025 11:52 AM EST Right Eye Pattern: 24-2. Findings: Normal, Non-specific defects. Left Eye Pattern: 24-2. Findings: Normal, Non-specific defects. 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 us Yenny Lomax MD OPHTHALMOLOGY IMAGING Final Res ult Performing Organization Address [facility] de Phone Number RAMONE from Last 3 Months Insurance [facility] [place] [address] [place] [address] [place] [address] [place] [address] [facility] [facility] Care Teams Chicken Hatchery Helper Relationship Specialty Start Date End Date Alecia Christianesn PA [address] [place] [phone] PCP - General Physician System Operator 07/22/24 Additional Source Comments The information contained in this document represents components of the legal health record. It is not the complete legal health record.[facility]
[2025-11-04 19:35] LABS: Hematocrit 44.2 % (37.0-47.0); Hemoglobin 14.6 g/dl (12.0-16.0); Imm Gran Abs Auto 0.02 X10*3/uL (0.00-0.03); Imm Gran Pct Auto 0.3 % (0.0-0.4); Lymphocytes Absolute Auto 2.3 X10*3/uL (1.2-4.9); Mean Corpuscular HGB Conc 33.0 g/dl (31.0-35.0); Mean Corpuscular Hemoglobin 30.4 pg (27.0-33.0); Mean Corpuscular Volume 92.1 fL (80.0-98.0); NRBC Abs Auto 0.000 X10*3/uL (0.0-0.012); NRBC Pct Auto 0.0 /100WBC (0.0-0.2); Platelet Count 253 X10*3/uL (160-400); Red Blood Count 4.80 X10*6/uL (4.20-5.50); White Blood Count 6.4 X10*3/uL (4.8-10.8)
[2025-11-04 19:42] LABS: Alanine Aminotransferase 48 U/L (0-31); Albumin Level 4.4 g/dL (3.5-5.0); Alkaline Phosphatase 91 U/L (39-117); Anion Gap 13 (12-20); Aspartate Amino Transferase 41 U/L (5-31); Blood Urea Nitrogen 23 mg/dL (9-16); Calcium 9.5 mg/dL (8.4-10.2); Carbon Dioxide 26 mmol/L (22-29); Chloride 105 mmol/L (96-108); Estimated Glomerular Filt Rate 42; Iron 98 mcg/dL (30-160); Percent Iron Saturation 28 % (15-50); Potassium 4.7 mmol/L (3.3-5.1); Sodium 139 mmol/L (135-145); Total Iron Binding Capacity 350 mcg/dL (228-428); Total Protein 6.9 g/dL (6.5-8.0); Unsaturated Iron Binding 252 ug/dL
[2025-11-04 19:47] LABS: Ferritin 157 ng/mL (10-250)
[2025-11-04 20:02] LABS: Folate 7.3 ng/mL (> or = 4.0); Vitamin B12 293 pg/mL (200-900)
[2025-11-04 20:18] LABS: Free T4 (Free Thyroxine) 1.11 ng/dL (0.71-1.85)
[2025-11-05 05:20] LABS: Total Hemoglobin (HGBA1C) 2578.0786 umol/L
== END 2025-11-04 13:56 | disposition home or self-care (01) ==
LOC: HO.WFDLDS 13:55
PROVIDERS: PCP Physician Assistant; Visit Provider Physician Assistant
DX: Z00.00 Encounter for general adult medical examination without abnormal findings (principal); R53.83 Other fatigue; I10 Essential (primary) hypertension; I48.0 Paroxysmal atrial fibrillation; R00.2 Palpitations; E78.5 Hyperlipidemia, unspecified; E05.90 Thyrotoxicosis, unspecified without thyrotoxic crisis or storm; R73.01 Impaired fasting glucose
CPT/HCPCS: 36415; 80053; 82607; 82728; 82746; 83036; 83540; 84439; 84443; 85025; 99396

== ENCOUNTER 2025-11-04 13:55 | Outpatient (AMB) | payer OTHER, SELFPAY ==
--- NOTE | 2025-11-04 14:01 | MHC.PC.OV ---
Vital Signs 11/04/25 14:08 Height 5 ft 2 in Weight 167 lb 6 oz BMI 30.6 BP 118/86 Blood Pressure Location Rt brachial Position Sitting Respiration 14 Pulse 80 Pulse Source Pulse Oximeter Pulse Oximetry (%) 97 Oxygen Delivery Method Room Air Intake Visit Reasons: meds Intake Note: Physical. Stopped Eliquis a week and a half ago. It was causing muscle cramps in lower left leg. Feeling fatigued and sleeping a lot, thinks its a side effects of medication. Potato Inspector Required: No Allergies No Known Allergies Allergy (Verified 11/04/25 14:06) Medication List - Last Reconciled 11/04/25 by Alecia Christiansen PA-C latanoprost 0.005% 1 drp ophthalmic (eye) QPM methimazole 2.5 mg (1/2 x 5 mg) PO DAILY metoprolol succinate ER 25 mg PO DAILY 90 days Tobacco use date assessed: 07/30/25 Dental Screening Dental Screen Date: 04/22/25 HPI meds HPI Details Patient is a 60 year-old female who presents today for a cpe. CV: Blood pressure today in the office is 118/86. She is currently on metoprolol 25 mg daily. Tolerating this well. Recently saw Cardiology and EP. -She recently has been drinking a lot of hot chocolate with whipped cream and thinks that is why cholesterol is high. She wants to control it with diet. Endo: On methimazole 1.25 mg for her hyperthyroidism. Following with Dr. Myles. Derm: Booked to see Dr. Mcnair in January MSK: At the beginning of June she fell walking into a dark room and tripped and landed on her hand. She did go to the ER and was noted to have a right 5th finger fracture. She saw Dr. Kim who provided her a splint and told her to go to physical therapy. She says that she still has some issues with dexterity of this finger and would like to see PT. Inspector Fabric: UTD 10/12 Mammo: UTD, due this month 05/13 (booked) Colonoscopy: cologuard but has not submitted yet Bone density: UTD 2023, osteopenia [facility] Medical History A-fib Gilbert syndrome Hyperthyroidism Hx of skin cancer, basal cell Dyslipidemia HTN (hypertension), benign Surgical History No pertinent past surgical history Family History Mother Breast cancer Social History Housing: House Alcohol intake: current Patient Tobacco Use Status: Current everyday Tobacco user Cigarettes Per Day: 1 Years Smoked: 10 e-Cigarette/Vaping Use: Never Used Second Hand Smoke Exposure: Yes Substance Use Type: Marijuana service: No Current occupational status: unemployed Current occupational exposures/hazards: No Cognitive needs: No Hearing needs: No Vision needs: Yes Questionnaire Thrive Questionnaire Date Thrive assessed: 04/22/25 I am a: Patient What is your living situation today?: I have a steady place to live Within the past 12 months, did the food you bought not last and you didn't have the money to get more?: Sometimes True Within the past 12 months, did you worry whether your food would run out before you got money to buy more?: Sometimes True Do you have trouble paying for medicines?: No Do you have trouble getting transportation to medical appointments?: No Do you have trouble paying your heating and electricity bill?: No Do you have trouble taking care of your child, family member or friend?: I choose not to answer this question Do you have trouble with day-to-day activities such as bathing, preparing meals, shopping, managing finances, etc.?: I choose not to answer this question Are you currently unemployed and looking for a job?: I choose not to answer this question Are you interested in more education?: I choose not to answer this question Please select the resources that you would like help with: Daily support Currently or been in a relationship where the following occur: I choose not to answer THRIVE Score: 2 Physical exam (Primary Care) Vital Signs: Last Vital Signs Pulse 80 11/04/25 14:08 Resp 14 11/04/25 14:08 BP 118/86 11/04/25 14:08 Pulse Ox 97 11/04/25 14:08 Oxygen Delivery Method Room Air 11/04/25 14:08 BMI result Body Mass Index 30.6 Tobacco/Smoking Status: Tobacco use Status Tobacco use date assessed 07/30/25 11/04/25 14:03 Patient Tobacco Use Status Current everyday Tobacco 11/04/25 14:03 e-Cigarette/Vaping Use Never Used 11/04/25 14:03 Thrive Assessment: Date of Thrive Assessment Date Thrive assessed 04/22/25 11/04/25 14:03 Currently or been in a relationship where the following occur: I choose not to answer Const Orientation/consciousness: patient oriented x3 HENMT Ears: hearing grossly normal bilaterally and TM's normal bilaterally General nose exam: No nasal polyps present Face and sinus: Yes sinuses nontender Mouth: Normal oral and palatal mucosa present Neck Neck: Yes full ROM and Yes no lymphadenopathy Thyroid: Thyroid normal Chest Chest palpation & inspection: normal inspection of the chest Resp Auscultation: clear to auscultation bilaterally Cardio Rate: regular rate Rhythm: regular rhythm Heart sounds: S1 normal heart sound present and S2 normal heart sound present Peripheral pulses: Peripheral pulses 2+ throughout GI Other: Soft, nontender Auscultation: normal bowel sounds Rectal Exam - Female: deferred General: Yes no CVA tenderness Back/Spine/Pelvis Other: Nontender Back: no CVA tenderness Skin General skin exam: no rashes or lesions noted Neuro General: patient oriented x3, gait normal, CN's II-XI intact bilaterally and deep tendon reflexes 2+ bilaterally Motor exam (neuro): 5/5 motor strength present throughout Sensory Exam: double simultaneous stimulation for sensation normal Coordination: wclwpm-qw-vwru test normal and Romberg test negative Extrem General: Yes normal to inspection and Yes full ROM Psych Affect: normal affect Attitude: cooperative Thought process: Normal thought process present Thought content: Normal thought content present Insight: Good insight present (Psych) Judgement: Good judgement present (Psych) Results Reviewed Results Reviewed: Laboratory Tests 10/09/25 09:08 WBC 6.0 RBC 4.94 Hgb 15.1 Hct 44.5 Plt Count 245 Creatinine 0.97 Estimated GFR 59 AST 30 ALT 46 H Triglycerides 254 H Cholesterol 223 H LDL Cholesterol, Calc 122 H HDL Cholesterol 51 TSH 0.89 Free T4 0.99 Free T3 3.2 Coding Level of Care Code Est Pt Prev Care 40-64y(37947) Add On Preventative Visit Only Diagnoses Routine general medical examination at a health care facility Z00.00 Fatigue R53.83 HTN (hypertension), benign I10 Paroxysmal atrial fibrillation I48.0 Atrial fibrillation type: paroxysmal Dyslipidemia E78.5 Hyperthyroidism E05.90 Assessment & Plan Assessment & Plan (1) Routine general medical examination at a health care facility: Code(s): Z00.00 - Encounter for general adult medical examination without abnormal findings Plan: Health maintenance reviewed Labs ordered (2) Fatigue: Code(s): R53.83 - Other fatigue Category: Medical Plan: Labs ordered (3) HTN (hypertension), benign: Code(s): I10 - Essential (primary) hypertension Category: Medical Plan: WNL. Continue current regimen (4) A-fib: Code(s): I48.91 - Unspecified atrial fibrillation Category: Medical Qualifiers: Atrial fibrillation type: paroxysmal Qualified Code(s): I48.0 - Paroxysmal atrial fibrillation Plan: The on anticoagulation. Has her watch and states that she monitors for any signs of AFib and then we will consider anticoagulation. (5) Dyslipidemia: Code(s): E78.5 - Hyperlipidemia, unspecified Category: Medical Plan: Recently poorly controlled. Patient states that she has had some poor diet choices and would like to make changes with her diet 1st (6) Hyperthyroidism: Code(s): E05.90 - Thyrotoxicosis, unspecified without thyrotoxic crisis or storm Category: Medical Plan: Following with endocrinology Orders: Orders Comprehensive Met. Panel 11/04/25 E05.90 - Thyrotoxicosis, unspecified without thyrotoxic crisis or storm, E78.5 - Hyperlipidemia, unspecified, I10 - Essential (primary) hypertension, I48.0 - Paroxysmal atrial fibrillation, R00.2 - Palpitations Hemoglobin A1c 11/04/25 E05.90 - Thyrotoxicosis, unspecified without thyrotoxic crisis or storm, E78.5 - Hyperlipidemia, unspecified, I10 - Essential (primary) hypertension, I48.0 - Paroxysmal atrial fibrillation, R00.2 - Palpitations, R73.01 - Impaired fasting glucose Complete Blood Count Auto Diff 11/04/25 E05.90 - Thyrotoxicosis, unspecified without thyrotoxic crisis or storm, E78.5 - Hyperlipidemia, unspecified, I10 - Essential (primary) hypertension, I48.0 - Paroxysmal atrial fibrillation, R00.2 - Palpitations TSH reflex Free T4 11/04/25 E05.90 - Thyrotoxicosis, unspecified without thyrotoxic crisis or storm, E78.5 - Hyperlipidemia, unspecified, I10 - Essential (primary) hypertension, I48.0 - Paroxysmal atrial fibrillation, R00.2 - Palpitations IRON PROFILE 11/04/25 E05.90 - Thyrotoxicosis, unspecified without thyrotoxic crisis or storm, E78.5 - Hyperlipidemia, unspecified, I10 - Essential (primary) hypertension, I48.0 - Paroxysmal atrial fibrillation, R00.2 - Palpitations Lipid Panel 3 Months E78.5 - Hyperlipidemia, unspecified Vitamin B12 and Folate 11/04/25 E05.90 - Thyrotoxicosis, unspecified without thyrotoxic crisis or storm, E78.5 - Hyperlipidemia, unspecified, I10 - Essential (primary) hypertension, I48.0 - Paroxysmal atrial fibrillation, R00.2 - Palpitations Ferritin 11/04/25 E05.90 - Thyrotoxicosis, unspecified without thyrotoxic crisis or storm, E78.5 - Hyperlipidemia, unspecified, I10 - Essential (primary) hypertension, I48.0 - Paroxysmal atrial fibrillation, R00.2 - Palpitations
[2025-11-04 14:08] VITALS: BP 118/86; PULSE 80; RESP 14; O2SAT 97; BMI 30.6
== END 2025-11-04 14:39 | disposition home or self-care (01) ==
LOC: HO.HMCFM 13:56
PROVIDERS: PCP Physician Assistant; Visit Provider Physician Assistant
DX: Z00.00 Encounter for general adult medical examination without abnormal findings (principal); R53.83 Other fatigue; I10 Essential (primary) hypertension; I48.0 Paroxysmal atrial fibrillation; E78.5 Hyperlipidemia, unspecified; E05.90 Thyrotoxicosis, unspecified without thyrotoxic crisis or storm